=== PATIENT | female | born 1940 | race Caucasian/White ===

== ENCOUNTER 2019-10-03 14:43 | Inpatient (IN) ==
[2019-10-03] MEDS ORDERED: FUROSEMIDE 40 MG/4 ML VIAL IV STA (15:44)
[2019-10-03 15:54] LABS: Basophils # (auto) 0.01 K/uL (0-0.2); Basophils % (auto) 0.2 %; Eosinophils # (auto) 0.07 K/uL (0-0.5); Eosinophils % (auto) 1.1 %; Hematocrit (blood only) 42.7 % (37-47); Hemoglobin 13.5 g/dL (12.0-16.0); Immature Granulocytes # (auto) 0.02 K/uL (0.00-0.02); Immature Granulocytes % (auto) 0.3 %; Lymphocytes # (auto) 1.36 K/uL (1.2-3.4); Lymphocytes % (auto) 21.9 %; Mean Corpuscular Hemoglobin 27.3 pg (25-34); Mean Corpuscular Hgb Conc 31.6 g/dL (32-36); Mean Corpuscular Volume 86.4 fL (80-100); Mean Platelet Volume 10.1 fL (7.4-10.4); Monocytes # (auto) 0.48 K/uL (0.11-0.59); Monocytes % (auto) 7.7 %; Neutrophils # (auto) 4.28 K/uL (1.4-6.5); Neutrophils % (auto) 68.8 %; Platelet Count 217 K/uL (130-400); RDW Standard Deviation 53.5 fL (36.4-46.3); Red Blood Count 4.94 M/uL (4.2-5.4); White Blood Count 6.22 K/uL (4.8-10.8)
[2019-10-03 16:04] LABS: BUN Creatinine Ratio 33.2 (10-20); Calcium 9.2 mg/dl (8.5-10.1); Creatinine Clr Calc Pharmacy 50.1 ml/min; Est GFR (African American) 55.1; Est GFR (Non-African American) 47.5; Magnesium 1.9 mg/dl (1.8-2.4)
[2019-10-03 16:05] LABS: INR 1.1 (0.9-1.1); Partial Thromboplastin Ratio 0.9; Partial Thromboplastin Time 23.8 Seconds (21.0-31.0); Prothrombin Time 11.9 Seconds (9.0-12.0)
[2019-10-03 16:06] LABS: Albumin Globulin Ratio 0.6 (0.9-2); Bilirubin,Total 0.6 mg/dl (0.2-1); Globulin 5.4 gm/dl (2.5-4.0); Total Protein 8.4 gm/dl (6.4-8.2)
[2019-10-03 16:13] LABS: Phosphorus 4.5 mg/dl (2.5-4.9)
--- NOTE | 2019-10-03 16:17 | Emergency Department Note ---
Impression & Plan Volume overload, CHF (congestive heart failure), History of aortic valve replacement with bioprosthetic valve, History of coronary artery bypass graft x 2 ED Provider Note NAME: CASPER MEDELLIN AGE: 79 SEX: F ARRIVES VIA: Walk-In INFORMANT: [Patient][, ] ED PROVIDER(S): Austin Martin MD CHIEF COMPLAINT: Shortness of breath, Edema PLAN: Disposition: Admit MEDICAL DECISION MAKING: The patient is a pleasant 79 y/o gentleman with a pmhx of CAD status post CABG, bioprosthetic aortic valve replacement, carotid artery stenosis after history of endarterectomy, NIDDM 2, hypertension, hyperlipidemia who presents to the emergency department after being seen in the [facility] cardiology clinic referred to the ED for evaluation/admission for increasing volume overload after being initiated on Lasix last month including ED visit with treatment with IV Lasix. [facility] echo today demonstrates severe diastolic dysfunction with new interval findings of worsening obstruction of bioprosthetic aortic valve as well as evidence of severe pulmonary hypertension. Patient and her daughter who is an RN deny fevers, chills, n/v/d, urinary sx. No concerns for exposure to COVID19. On arrival the patient is ill-appearing in NAD, AF, VSS, 89%RA. On exam patient appears fluid overloaded with 3+ BLE edema with erythema but no warmth or tenderness, Moderate JVD, Scattered rales and diminished at bases. EKG without over acute ischemia, similar to prior. CXR with improved aeration from prior interpreted as possible PNA however given patient's overload on exam without fevers or leukocytosis, PNA thought to be less likely. WBC, H/H, platelets wnl. Chemistry without acidosis. AST 44 and AP 364. Otherwise, LFTs and electrolytes unremarkable. BNP 19K decreases from 23K last month. However patients weight is 15Kg greater than last month. Treatment initiated with 40meq IV Lasix. Resident, Dr. Ha, discussed the case with Solo Farias, [facility] PAC, with Dr. Solorzano, [facility] hospitalist who will evaluate the patient for admission. This patient was managed with the assistance of resident, Dr. Ha. I discussed the case with the resident, examined the patient, and confirm the findings and plan as documented in this note. Triage Nursing notes reviewed and agree them. [Additional history obtained from] [facility] records [Prior medical records reviewed] [] Vital Signs: reviewed and remarkable for hypertension. Differential diagnosis: Reactive airway disease, pneumonia, pneumothorax, COPD, CHF, infections, cardiac ischemia, pulmonary embolism, musculoskeletal, gastrointestinal, as well as other pathologies. ER treatment provided: See Below. Diagnostics interpreted by me: ECG: Sinus bradycardia, 59 bpm, LAD, no ectopy, No overt ST elevation or dep ression, QTC 459, QRS 104. Similar to 09/07/2019. Cardiac Monitoring: An order for continuous cardiac monitoring was placed and demonstrated Sinus bradycardia, 59bpm, no ectopy. Laboratory studies: [See below] [] Imaging studies: XR chest 1V portable CLINICAL HISTORY: Dyspnea COMPARISON STUDY: Chest CT February 08, 2018. Chest radiograph September 07, 2019. FINDINGS: Median sternotomy wires are noted. Extensive mitral annular calcification is noted. Cardiomegaly is present. There is no evidence for pulmonary edema. No pneumothorax is noted. A right pleural effusion has decreased in size since prior exam. Right lower lung aeration has improved since exam of September 07, 2019 however there is persistent right lower lung opacity, including a 3.5 cm nodular opacity. IMPRESSION: 1. Improved right lower lung aeration however persistent right basilar opacity, including a 3.5 cm nodular opacity. Pneumonia is favored. However, radiographic follow-up to exclude the possibility of an underlying mass is recommended. 2. Decrease in size of a small right pleural effusion. 3. Cardiomegaly without evidence for pulmonary edema. Consultation(s): Case was discussed with Aga Farias, [facility] PAC, with Dr. Solorzano, [facility] hospitalist who will evaluate the patient for admission. HPI: The patient is a pleasant 79 y/o gentleman with a pmhx of CAD status post CABG, bioprosthetic aortic valve replacement, carotid artery stenosis after history of endarterectomy, NIDDM 2, hypertension, hyperlipidemia who presents to the emergency department after being seen in the [facility] cardiology clinic referred to the ED for evaluation/admission for increasing volume overload after being initiated on Lasix last month including ED visit with treatment with IV Lasix per HPI. [facility] echo today demonstrates severe diastolic dysfunction with new interval findings of worsening obstruction of bioprosthetic aortic valve as well as evidence of severe pulmonary hypertension. Patient and her daughter who is an RN deny fevers, chills, n/v/d, urinary sx. No concerns for exposure to COVID19. ROS: See above HPI for pertinent positives & negatives. A total of [10] systems reviewed and were otherwise negative. PAST MEDICAL HISTORY:[See Below] PAST SURGICAL HISTORY:[See Below] FAMILY HISTORY:[See Below] SOCIAL HISTORY:[See Below] HOME MEDICATIONS:[See Below] ALLERGIES:[See Below] VITALS:[See Below] PHYSICAL EXAMINATION: GENERAL: Awake, alert, ill-appearing, in no distress HENT: Normocephalic, atraumatic. Oropharynx with dry mucous membranes and otherwise unremarkable. EYES: Normal conjunctiva. Sclera non-icteric. NECK: Supple. No nuchal rigidity. FROM. Moderate JVD. RESPIRATORY: Scattered rales, diminished at bases. CARDIAC: Regular rate, normal rhythm. Extremities warm and well perfused. Pulses equal. ABDOMEN: Soft, non-distended. No tenderness to palpation. No rebound or guarding. No masses. RECTAL: Deferred. MUSCULOSKELETAL: Chest examination reveals no tenderness. The back is symmetrical on inspection without obvious abnormality. There is no CVA tenderness to palpation. No joint edema. LOWER EXTREMITIES: Calves are equal size bilaterally and non-tender. 3+ edema. Mild erythema without warmth or tenderness. NEURO: Normal sensorium. No sensory or motor deficits noted. SKIN: No rash or jaundice noted. Austin Martin MD Past Med/Surg History Medical History Aneurysm Aortic stenosis (Chronic) Bilateral carotid artery stenosis (Chronic) Carotid artery disease Chronic back pain Diabetes mellitus with peripheral angiopathy (Chronic) Diabetes mellitus, type 2 GERD (gastroesophageal reflux disease) Glaucoma Glaucoma (Chronic) HLD (hyperlipidemia) (Chronic) HTN (hypertension) (Chronic) Hyperchloremia Hypertension Nausea and vomiting after administration of anesthetic agent Non-insulin dependent type 2 diabetes mellitus Osteoarthritis PAD (peripheral artery disease) (Chronic) T2DM (type 2 diabetes mellitus) (Chronic) Surgical History H/O aortic valve replacement History of carotid endarterectomy (Chronic) History of carpal tunnel release (Chronic) History of cataract extraction (Chronic) History of cataract surgery History of cholecystectomy History of cholecystectomy (Chronic) History of coronary artery bypass graft History of coronary artery bypass graft x 2 (Chronic) 01/24/[address] [place] [facility] [place] of prosthetic aortic valve (Chronic) 01/24/[address] 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 Beliefs That Will Affect Care: None marital status: Single Current Living Situation: Alone Other Information That Helps Us Care for You: No Feels Safe at Home: Yes Safety Concerns: Feels Safe At This Time Smoking Status: Former smoker Tobacco Type: cigarettes ; Cigarettes Per Day: 4 ; Hx Alcohol Use: No Hx Substance Use: No Allergies Allergies Allergy/AdvReac Type Severity Reaction Status Date / Time oxycodone [From Percocet] AdvReac Vomiting Verified 10/03/19 16:23 Home Meds Home Medications Medication Instructions Recorded Confirmed aspirin 81 mg PO QPM 02/06/18 10/03/19 atorvastatin [Lipitor] 40 mg PO DAILY 02/06/18 10/03/19 latanoprost [Xalatan] 1 drp OPR DAILY 02/06/18 10/03/19 lisinopril [Zestril] 10 mg PO DAILY 02/06/18 10/03/19 metoprolol tartrate [Lopressor] 50 mg PO BID 02/06/18 10/03/19 multivitamin 1 tab PO DAILY 02/06/18 10/03/19 omega 9-lrf-flu-fish oil [Fish Oil] 1 tab PO DAILY 02/06/18 10/03/19 albuterol sulfate 1 - 2 puff INHALATION UD 09/07/19 10/03/19 furosemide 40 mg PO BID 09/07/19 10/03/19 insulin aspart U-100 [Novolog 0 unit SUBCUT UD 09/07/19 10/03/19 Flexpen U-100 Insulin] insulin degludec [Tresiba 25 unit SUBCUT QAM 09/07/19 10/03/19 FlexTouch U-100] Results & Data (ED) Vital Signs Vital Signs - 24 hr 10/03/19 15:05 10/03/19 15:12 10/03/19 15:24 Temperature 36.7 C Temperature Source Oral Pulse Rate 60 59 L 59 L Pulse Rate [Apical] 59 L Pulse Rate from SpO2 Sensor 58 L 58 L Pulse Rhythm Pulse Rhythm [Apical] Respiratory Rate 23 32 H 21 Respiratory Effort / Characteristics Spontaneous Labored Short of Breath SOB on Exertion Non-Labored Spontaneous Respiratory Depth Normal Normal Respiratory Pattern Tachypnea Agonal Blood Pressure 155/71 H 155/71 H Blood Pressure [Left Arm] 155/71 H Blood Pressure Mean 104 99 Blood Pressure Mean [Left Arm] 99 Blood Pressure Position [Left Arm] Sitting Pulse Oximetry 93 94 89 L Oxygen Delivery Method Room Air Room Air Room Air Oxygen Flow Rate Sepsis Recent Fever Within 48 Hours No Sepsis Action Taken by Nursing No Action Required 10/03/19 15:30 10/03/19 15:32 10/03/19 15:45 Temperature Temperature Source Pulse Rate 55 L 59 L 59 L Pulse Rate [Apical] Pulse Rate from SpO2 Sensor 61 59 L 62 Pulse Rhythm Regular Pulse Rhythm [Apical] Respiratory Rate 18 22 20 Respiratory Effort / Characteristics Respiratory Depth Respiratory Pattern Blood Pressure 171/74 H Blood Pressure [Left Arm] Blood Pressure Mean 109 Blood Pressure Mean [Left Arm] Blood Pressure Position [Left Arm] Pulse Oximetry 96 95 94 Oxygen Delivery Method Nasal Cannula Nasal Cannula Nasal Cannula Oxygen Flow Rate 2 2 2 Sepsis Recent Fever Within 48 Hours Sepsis Action Taken by Nursing 10/03/19 16:00 10/03/19 16:01 10/03/19 16:02 Temperature Temperature Source Pulse Rate 59 L 58 L 64 Pulse Rate [Apical] Pulse Rate from SpO2 Sensor Pulse Rhythm Pulse Rhythm [Apical] Respiratory Rate 21 22 21 Respiratory Effort / Characteristics Respiratory Depth Respiratory Pattern Blood Pressure 144/110 H 145/77 H Blood Pressure [Left Arm] Blood Pressure Mean 119 99 Blood Pressure Mean [Left Arm] Blood Pressure Position [Left Arm] Pulse Oximetry 95 Oxygen Delivery Method Nasal Cannula Oxygen Flow Rate 2 Sepsis Recent Fever Within 48 Hours Sepsis Action Taken by Nursing 10/03/19 16:15 10/03/19 16:30 10/03/19 16:45 Temperature Temperature Source Pulse Rate 58 L 58 L 57 L Pulse Rate [Apical] Pulse Rate from SpO2 Sensor Pulse Rhythm Pulse Rhythm [Apical] Respiratory Rate 21 20 20 Respiratory Effort / Characteristics Respiratory Depth Respiratory Pattern Blood Pressure 144/70 H Blood Pressure [Left Arm] Blood Pressure Mean 94 Blood Pressure Mean [Left Arm] Blood Pressure Position [Left Arm] Pulse Oximetry 93 Oxygen Delivery Method Nasal Cannula Oxygen Flow Rate 2 Sepsis Recent Fever Within 48 Hours Sepsis Action Taken by Nursing 10/03/19 17:00 10/03/19 17:01 10/03/19 17:15 Temperature Temperature Source Pulse Rate 56 L 54 L Pulse Rate [Apical] 56 L Pulse Rate from SpO2 Sensor 54 L Pulse Rhythm Pulse Rhythm [Apical] Regular Respiratory Rate 24 22 18 Respiratory Effort / Characteristics Spontaneous Respiratory Depth Respiratory Pattern Regular Blood Pressure 148/72 H Blood Pressure [Left Arm] 148/72 H Blood Pressure Mean 110 Blood Pressure Mean [Left Arm] 97 Blood Pressure Position [Left Arm] Pulse Oximetry 95 93 83 L Oxygen Delivery Method Nasal Cannula Nasal Cannula Oxygen Flow Rate 3 2 Sepsis Recent Fever Within 48 Hours Sepsis Action Taken by Nursing Laboratory Data Attestation: I reviewed the patient's lab results. Result diagrams: 10/04/19 06:24 10/04/19 06:24 Lab Results 10/03/19 10/03/19 10/03/19 Range/Units 15:21 15:21 15:21 WBC 6.22 (4.8-10.8) K/uL RBC 4.94 (4.2-5.4) M/uL Hgb 13.5 (12.0-16.0) g/dL Hct 42.7 (37-47) % MCV 86.4 (80-100) fL MCH 27.3 (25-34) pg MCHC 31.6 L (32-36) g/dL RDW Std Deviation 53.5 H (36.4-46.3) fL RDW Coeff of Erin 17.0 H (11.5-14.5) % Plt Count 217 (130-400) K/uL MPV 10.1 (7.4-10.4) fL Immature Gran % (Auto) 0.3 % Neut % (Auto) 68.8 % Lymph % (Auto) 21.9 % [place] % (Auto) 7.7 % Eos % (Auto) 1.1 % Baso % (Auto) 0.2 % Immature Gran # (Auto) 0.02 (0.00-0.02) K/uL Neut # (Auto) 4.28 (1.4-6.5) K/uL Lymph # (Auto) 1.36 (1.2-3.4) K/uL [place] # (Auto) 0.48 (0.11-0.59) K/uL Eos # (Auto) 0.07 (0-0.5) K/uL Baso # (Auto) 0.01 (0-0.2) K/uL PT 11.9 (9.0-12.0) Seconds INR 1.1 (0.9-1.1) APTT 23.8 (21.0-31.0) Seconds PTT Ratio 0.9 Sodium 139 (136-145) mmol/L Potassium 4.0 (3.5-5.1) mmol/L Chloride 101 (98-107) mmol/L Carbon Dioxide 33 H (21-32) mmol/L Anion Gap 5.0 (3-11) BUN 37 H (7-18) mg/dl Creatinine 1.11 (0.6-1.2) mg/dl Est Cr Clr Drug Dosing 50.1 ml/min Est GFR ( Amer) 55.1 Est GFR (Non-Af Amer) 47.5 BUN/Creatinine Ratio 33.2 H (10-20) Glucose 192 H (70-99) mg/dl Calcium 9.2 (8.5-10.1) mg/dl Phosphorus 4.5 (2.5-4.9) mg/dl Magnesium 1.9 (1.8-2.4) mg/dl Total Bilirubin 0.6 (0.2-1) mg/dl AST 44 H (15-37) U/L ALT 49 (12-78) U/L Alkaline Phosphatase 364 H (45-117) U/L NT-Pro-B Natriuret Pep 46747 H (0-1800) pg/ml Total Protein 8.4 H (6.4-8.2) gm/dl Albumin 3.0 L (3.4-5.0) gm/dl Globulin 5.4 H (2.5-4.0) gm/dl Albumin/Globulin Ratio 0.6 L (0.9-2) Administered Medications Aspirin (Ecotrin Ectab) 81 mg PO QPM STACEY Stop: 11/02/19 20:59 Last Admin: 10/03/19 20:06 Dose: 81 mg Documented by: [id number] Atorvastatin Calcium (Lipitor) 40 mg PO DAILY STACEY Stop: 11/03/19 08:59 Last Admin: 10/04/19 08:35 Dose: 40 mg Documented by: [id number] Enoxaparin Sodium (Lovenox) 40 mg SQ Q24H STACEY Stop: 11/02/19 19:59 Last Admin: 10/03/19 20:04 Dose: 40 mg Documented by: [id number] Fish Oil ([place]-3 (Purified Fish Oil)) 1 gm PO DAILY STACEY Stop: 11/03/19 08:59 Last Admin: 10/04/19 08:33 Dose: 1 gm Documented by: [id number] Ceftriaxone Sodium 2,000 mg/ (Dextrose) 70 mls @ 100 mls/hr IV Q24H [facility]; Protocol Stop: 10/10/19 19:59 Last Infusion: 10/03/19 22:10 Dose: 0 mls/hr Documented by: [id number] Admin: 10/03/19 21:28 Dose: 100 mls/hr Documented by: [id number] Insulin Aspart (Novolog Flexpen) 0 units SC ACHS STACEY Stop: 11/02/19 20:59 Last Admin: 10/04/19 11:57 Dose: Not Given Documented by: [id number] Cosigned by: [id number] Admin: 10/04/19 09:50 Dose: Not Given Documented by: [id number] Cosigned by: [id number] Admin: 10/03/19 21:01 Dose: Not Given Documented by: [id number] Cosigned by: [id number] Insulin Glargine (Lantus Solostar Pen) 0 - 10 units SC BID [facility] Stop: 11/02/19 20:59 Last Admin: 10/04/19 09:50 Dose: Not Given Documented by: [id number] Admin: 10/03/19 21:01 Dose: Not Given Documented by: [id number] Latanoprost (Xalatan Oph) 1 drops OPR DAILY STACEY Stop: 11/03/19 08:59 Last Admin: 10/04/19 08:35 Dose: 1 drops Documented by: [id number] Lisinopril (Zestril) 10 mg PO DAILY [facility] Stop: 11/03/19 08:59 Last Admin: 10/04/19 08:35 Dose: 10 mg Documented by: [id number] Metoprolol Tartrate (Lopressor) 50 mg PO BID [facility] Stop: 11/02/19 20:59 Last Admin: 10/04/19 08:34 Dose: 50 mg Documented by: [id number] Admin: 10/03/19 20:00 Dose: 50 mg Documented by: [id number] Multivitamins (Multivitamin Tab) 1 tab PO DAILY STACEY Stop: 11/03/19 08:59 Last Admin: 10/04/19 08:34 Dose: 1 tab Documented by: [id number] Discontinued Medications Furosemide (Lasix) 40 mg IV NOW STA Stop: 10/03/19 15:45 Last Admin: 10/03/19 16:56 Dose: 40 mg Documented by: [id number] Furosemide 20 mg/ Syringe 2 mls @ 4 mls/min IV ONE ONE Stop: 10/03/19 21:01 Last Admin: 10/03/19 20:06 Dose: 4 mls/min Documented by: [id number] Furosemide 40 mg/ Syringe 4 mls @ 4 mls/min IV [id number] STACEY Stop: 11/03/19 08:59 Last Admin: 10/04/19 08:41 Dose: 4 mls/min Documented by: [id number] Blood Pressure Blood Pressure Findings: Elevated blood pressure Blood Pressure Disposition: further management by hospitalist Discharge Plan Visit Data *Final* Discharge Date/Time: 10/03/19 18:43 Chief Complaint: Shortness of Breath/Dyspnea Stated Complaint: SOB, FEVER ED Provider: Austin Martin ED Midlevel Provider: Preston Ha Discharge Problem: Volume overload, CHF (congestive heart failure), History of aortic valve replacement with bioprosthetic valve, History of coronary artery bypass graft x 2 Patient Disposition: Admitted As Inpatient Discharge Instructions Interventions: ED Discharge Assessment Last Done: 10/03/19 18:43 Discharge Problem: Volume overload Qualifiers: Hypervolemia type: unspecified Qualified Code(s): E87.70 - Fluid overload, unspecified CHF (congestive heart failure) Qualifiers: Heart failure type: unspecified Heart failure chronicity: unspecified Qualified Code(s): I50.9 - Heart failure, unspecified
--- NOTE | 2019-10-03 16:44 | XRay Report ---
XR chest 1V portable CLINICAL HISTORY: Dyspnea COMPARISON STUDY: Chest CT February 08, 2018. Chest radiograph September 07, 2019. FINDINGS: Median sternotomy wires are noted. Extensive mitral annular calcification is noted. Cardiom egaly is present. There is no evidence for pulmonary edema. No pneumothorax is noted. A right pleural effusion has decreased in size since prior exam. Right lower lung aeration has improved since exam o f September 07, 2019 however there is persistent right lower lung opacity, including a 3.5 cm nodular opa city. IMPRESSION: 1. Improved right lower lung aeration however persistent right basilar opacity, including a 3.5 cm no dular opacity. Pneumonia is favored. However, radiographic follow-up to exclude the possibility of an underlying mass is recommended. 2. Decrease in size of a small right pleural effusion. 3. Cardiomegaly without evidence for pulmonary edema. ACT 112: Negative or not required by law. Electronically signed by: Shahid Walker M.D. 10/03/2019 4:43 PM
--- NOTE | 2019-10-03 16:52 | Emergency Department Note ---
ED Visit Note I contributed to the care of this patient under the supervision of . See his note for full documentation. . Resident Activity Tracking Resident Involvement: Resident Care Provided Care Provided: Adult ED
--- NOTE | 2019-10-03 17:41 | History & Physical Report ---
Date of Service October 03, 2019 Assessment & Plan (1) Fluid overload: Pt is 79 y/o F with PMH HTN, CAD s/p CABG x2, severe aortic stenosis status post aortic valve replacement 2011, DM II status post bilateral carotid endarterectomy with subsequent right-sided restenosis, HTN, PAD, tobacco use presented to ER with complaints of increased lower extremity edema, progressive shortness of breath, weight gain. Had some adjustment oral diuretics without improvement. Patient was seen at cardiology office today and had echo in office with EF: 55- 59%, grade 3 diastolic dysfunction, bioprosthetic aortic valve opening severely reduced with elevated bioprosthetic aortic valve systolic gradient suggesting severe obstruction, moderate tricuspid regurgitation, pulmonary artery systolic pressure 66 mmHg, dilated IVC with normal inspiratory variation suggesting right atrial pressure of 8 mm Hg. In ER pt afebrile, P: 59, R: 32 down 22, BP: 155/71, 94% on RA down to 89% on RA up to 94% on 2L NC No leukocytosis, BNP: 19,000 CXR: 1. Improved right lower lung aeration however persistent right basilar opacity, including a 3.5 cm nodular opacity. Pneumonia is favored. However, radiographic follow-up to exclude the possibility of an underlying mass is recommended. 2. Decrease in size of a small right pleural effusion. 3. Cardiomegaly without evidence for pulmonary edema. Acute CHF secondary to valvular heart disease -Clinically patient appears volume overloaded -In ER given Lasix 40 mg IV -Supplemental oxygen as needed -Monitor I's and O's, daily weights, low-sodium diet -Will give additional Lasix 20 mg IV tonight followed by Lasix 40 mg IV twice daily starting tomorrow -CBC, BMP in a.m. -Cardiology consult (2) Cellulitis: BLE cellulitis -Rocephin -Wound nurse consult for bulla (3) CAD (coronary artery disease): S/p CABG x2 Denies chest pain -Continue aspirin, atorvastatin, metoprolol (4) Aortic stenosis: Status post aortic valve replacement in 2011 -Echo findings and treatment as above -Cardiology consult (5) T2DM (type 2 diabetes mellitus): A1c: 13.9 on 05/03/2019 -Hold Tresiba -NovoLog and Lantus sliding scale per protocol -A1c in a.m. (6) Carotid artery disease: S/p bilateral carotid endarterectomy with restenosis right side (7) HTN (hypertension): -Continue lisinopril (8) Tobacco use: -Smoking cessation encouraged -Denies nicotine patch DVT Prophylaxis -Lovenox SQ Full Code as per discussion with pt Follows with Dr Mendez for routine care Pt was seen and care coordinated with Dr Solorzano. See addendum History of Present Illness Chief Complaint: Extremity edema, weight gain Primary Care Provider: Jacquelyn Mendez MD Pt is 79 y/o F with PMH HTN, CAD s/p CABG x2, severe aortic stenosis status post aortic valve replacement 2011, DM II status post bilateral carotid endarterectomy with subsequent right-sided restenosis, HTN, PAD, tobacco use presented to ER with complaints of increased lower extremity edema, progressive shortness of breath, weight gain. History obtained with assistance from gema angeles's daughter as patient is poor historian. Reports patient has had progressive shortness of breath and bilateral lower extremity edema and weight gain over the past several months. Reports patient has gained approximately 45 pounds since 05/2019. It is noted she gained 15 pounds in the last 2 weeks. Also reports cough productive clear sputum off and on. Reports patient was started on Lasix 20 mg daily by PCP had continued lower extremity edema and shortness of breath and was seen at [facility] ER in August a.m. received 1 dose IV Lasix with reported good diuresis over the next 24 hours however no improvement of symptoms. Patient's Lasix was increased to 40 mg daily and for the past 5 days has been increased to twice daily. Past 1 to 2 weeks with increased lower extremity edema. Patient's daughter reports that patient never complains this has not been complaining of shortness of breath however she has noted patient with shortness of breath reports today is the worst that she seen her mother. When asked patient just says feels poorly and denies feeling short of breath, which daughter confirms she has been staying at home, however daughter reports has noticed patient with shortness of breath. Pt sleeps in recliner. Denies chest pain. Reports had noticed a blister to left lower extremity several days ago which became larger in size and self broke and drained. Also notes some other small blistered areas to bilateral lower extremities. Patient's daughter has been cleaning and applying dressings to area. Pt ambulates with walker at home however daughter reports noticed pt with increased weakness past couple of days. Denies falls. Denies fever/chills, diaphoresis, N/V/D/C, KESSLER, dizziness, syncope, vision changes, neck pain, CP, SOB, palpitations, sore throat, choking, otalgia, rhinorrhea, abdominal pain, paresthesias, other rashes, urinary symptoms. Patient was seen at cardiology office today and had echo in office with EF: 55- 59%, grade 3 diastolic dysfunction, bioprosthetic aortic valve opening severely reduced with elevated bioprosthetic aortic valve systolic gradient suggesting severe obstruction, moderate tricuspid regurgitation, pulmonary artery systolic pressure 66 mmHg, dilated IVC with normal inspiratory variation suggesting right atrial pressure of 8 mm Hg. this was compared to her last echo from 2019 which shows that bioprosthetic aortic valve systolic gradients have increased. Allergies Allergy/AdvReac Type Severity Reaction Status Date / Time oxycodone [From Percocet] AdvReac Vomiting Verified 10/03/19 16:23 Home Medications Home Medications Medication Instructions Recorded Confirmed Type aspirin 81 mg PO QPM 02/06/18 10/03/19 History atorvastatin [Lipitor] 40 mg PO DAILY 02/06/18 10/03/19 History latanoprost [Xalatan] 1 drp OPR DAILY 02/06/18 10/03/19 History lisinopril [Zestril] 10 mg PO DAILY 02/06/18 10/03/19 History metoprolol tartrate [Lopressor] 50 mg PO BID 02/06/18 10/03/19 History multivitamin 1 tab PO DAILY 02/06/18 10/03/19 History omega 2-urc-eil-fish oil [Fish Oil] 1 tab PO DAILY 02/06/18 10/03/19 History albuterol sulfate 1 - 2 puff INHALATION UD 09/07/19 10/03/19 History furosemide 40 mg PO BID 09/07/19 10/03/19 History insulin aspart U-100 [Novolog 0 unit SUBCUT UD 09/07/19 10/03/19 History Flexpen U-100 Insulin] insulin degludec [Tresiba 25 unit SUBCUT QAM 09/07/19 10/03/19 History FlexTouch U-100] Past Med/Surg History Medical History Aneurysm Aortic stenosis (Chronic) Bilateral carotid artery stenosis (Chronic) Carotid artery disease Chronic back pain Diabetes mellitus with peripheral angiopathy (Chronic) Diabetes mellitus, type 2 GERD (gastroesophageal reflux disease) Glaucoma Glaucoma (Chronic) HLD (hyperlipidemia) (Chronic) HTN (hypertension) (Chronic) Hyperchloremia Hypertension Nausea and vomiting after administration of anesthetic agent Non-insulin dependent type 2 diabetes mellitus Osteoarthritis PAD (peripheral artery disease) (Chronic) T2DM (type 2 diabetes mellitus) (Chronic) Surgical History H/O aortic valve replacement History of carotid endarterectomy (Chronic) History of carpal tunnel release (Chronic) History of cataract extraction (Chronic) History of cataract surgery History of cholecystectomy History of cholecystectomy (Chronic) History of coronary artery bypass graft History of coronary artery bypass graft x 2 (Chronic) 01/24/[address] Johnathan Caceres, [facility] History of prosthetic aortic valve (Chronic) 01/24/[address] 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 Beliefs That Will Affect Care: None marital status: Single Current Living Situation: Family Feels Safe at Home: Yes Smoking Status: Current every day smoker Tobacco Type: cigarettes ; Cigarettes Per Day: 4 ; Hx Alcohol Use: No Hx Substance Use: No Review of Systems Review of Systems: All systems reviewed & are unremarkable except as noted in HPI & below Physical Exam Physical Exam: General: mild acute distress, obese Head: normocephalic, atraumatic Eyes: PERRL, EOM's intact, conjunctiva non-injected, anicteric ENT: normal inspection external ears, nose, mucous membranes moist Neck: supple, trachea midline Lungs: mild no respiratory distress, on 2L oxygen via NC with sats 93%, +wheezing & rales CV: RRR, systolic murmur, +JVD, 2-3+pitting pretibial edema Abd: normal BS, soft, protuberant, non-tender Ext: as below in skin, no calf tenderness Neuro: A&O x 3, no focal deficits noted, normal affect Skin: warm, dry; BLE with erythema, LLE with ruptured bullous, RLE with small bullous intact Results & Data Results & Data ([facility]) Vital Signs (Past 12 Hours) Vital Signs Temp Pulse Pulse Resp BP BP Pulse Ox 10/03/19 17:00 56 L 20 148/72 H 95 10/03/19 16:01 58 L 22 144/110 H 10/03/19 16:00 59 L 21 10/03/19 15:45 59 L 20 94 10/03/19 15:32 59 L 22 171/74 H 95 10/03/19 15:30 63 22 97 10/03/19 15:24 59 L 21 89 L 10/03/19 15:12 36.7 C 59 L 32 H 155/71 H 94 10/03/19 15:05 60 59 L 23 155/71 H 155/71 H 93 Laboratory Results Short CBC 10/03/19 Range/Units 15:21 WBC 6.22 (4.8-10.8) K/uL Hgb 13.5 (12.0-16.0) g/dL Hct 42.7 (37-47) % Plt Count 217 (130-400) K/uL BMP 10/03/19 15:21 Sodium 139 Potassium 4.0 Chloride 101 Carbon Dioxide 33 H BUN 37 H Creatinine 1.11 Glucose 192 H Calcium 9.2 Liver Function 10/03/19 Range/Units 15:21 Total Bilirubin 0.6 (0.2-1) mg/dl AST 44 H (15-37) U/L ALT 49 (12-78) U/L Alkaline Phosphatase 364 H (45-117) U/L Albumin 3.0 L (3.4-5.0) gm/dl Diagnostic Findings CXR: IMPRESSION: 1. Improved right lower lung aeration however persistent right basilar opacity, including a 3.5 cm nodular opacity. Pneumonia is favored. However, radiographic follow-up to exclude the possibility of an underlying mass is recommended. 2. Decrease in size of a small right pleural effusion. 3. Cardiomegaly without evidence for pulmonary edema. Code Status & VTE Plan VTE Prophylaxis Plan VTE Prophylaxis will be ordered: Yes Supervising Physician Co-Signing Physician Notes I, Dr. Donald Solorzano, have seen and examined the patient with physician assistant professor surgical technology and would like to comment that on exam General: obese patient Lungs: crackles of more predominant of lung bases bilaterally, audible gurgling of fluid retention Heart: bradycardia Abdomen: soft, nontender, positive bowel sounds Extremities: edema Assessment and Plan -patient follows with [facility] cardiology clinic at [facility], recent ED fluids for volume overload, was sent from cardiology on 10/03/2019 to ED for further evaluation and diuresis. Echocardiogram reported in the cardiology clinic to be "The examination is adequate to evaluate the referral indication. The qualitative LV ejection fraction is 55-59% (normal). The LV wall thickness is severely increased (concentric). The left atrium is severely enlarged (>48 ml/m^2,). The left ventricular diastolic function is severely abnormal (grade III). The right ventricular systolic function is mildly reduced . There is an aortic valve bioprosthetic present. Bioprosthetic aortic valve leaflets appear thickened. Bioprosthetic aortic valve opening is severely reduced. Elevated bioprosthetic aortic valve systolic gradients suggesting severe obstruction. Moderate tricuspid regurgitation is present. The estimated pulmonary artery systolic pressure is 66 mm Hg. Dilated IVC with normal inspiratory variation suggesting a right atrial pressure of 8 mmHg. Compared to last available study changes are noted as follows: Bioprosthetic aortic valve systolic gradients have increased, indirect evidence of severe pulmonary arterial hypertension is present" -cardiology clinic impressions of "1. Acute on chronic decompensated diastolic HF secondary to severe valvular heart disease noted on echo today. Evidence of significant volume overload on exam, failing outpatient diuretic therapy. 2. B/L cellulitis with open wounds/blistering and erythema 3. History of AVR with previously elevated gradients, now severe bioprosthetic aortic stenosis on echo today. 4. Coronary artery disease status post CABG x2 stable 5. Ongoing tobacco abuse with no desire for cessation 6. Peripheral arterial disease and carotid vascular disease 7. DM with poorly controlled DM" -at this time will continue IV diuresis of the patient with Lasix and expect gradual improvements of the Acute Respiratory Failure with Hypoxia. will need inpatient cardiology consult and then plan to repeat echocardiogram once volume status improves -give ceftriaxone for the cellulitis of the legs -agree with other assessment and plans as documented by physician assistant professor surgical technology including daibetes control and smoking cessation My colleague will be taking over the care of the patient as hospitalist starting on 10/04/2019
[2019-10-03 18:49] LABS: Appearance Urine Cloudy (Clear); Bacteria Urine Automated 2+ (Negative); Bilirubin Urine Negative (Negative); Blood Urine Negative (Negative); Color Urine Yellow; Epithelial Cell Urine Auto >30 /lpf (0-5); Glucose Urine UA Negative (Negative); Ketones Urine Negative (Negative); Leukocyte Esterase Urine 2+ (Negative); Nitrite Urine Positive (Negative); Protein Urine 1+ (Negative); RBC Urine Automated 0-4 /hpf (0-4); Specific Gravity Urine 1.015 (1.000-1.030); Urobilinogen Urine Negative (Negative)
[2019-10-03] MEDS ORDERED: DEXTROSE 50% 50 ML SYRINGE IV PRN (19:13)
[2019-10-03] MEDS ORDERED: GLUCAGON FOR INJ 1 MG VIAL SQ PRN (19:13)
[2019-10-03] MEDS ORDERED: GLUCOSE 10 TABS/TUBE PO PRN (19:13)
[2019-10-03] MEDS ORDERED: CARBOHYDRATES FOR HYPOGLYCEMIA PO PRN (19:13)
[2019-10-03] MEDS ORDERED: GLUCOSE 40% GEL 15 GM TUBE PO PRN (19:13)
[2019-10-03] MEDS: METOPROLOL TARTRATE 50 MG TAB PO SCH (20:00)
[2019-10-03] MEDS: ENOXAPARIN INJ 40 MG/0.4 ML SYR SQ SCH (20:04)
[2019-10-03] MEDS: ASPIRIN 81 MG ECTAB PO SCH (20:06)
[2019-10-03] MEDS ORDERED: FUROSEMIDE 20 MG in SYRINGE 0 ML IV ONE (21:00)
[2019-10-03] MEDS ORDERED: FUROSEMIDE 40 MG/4 ML VIAL IV ONE (21:00)
[2019-10-03] MEDS: INSULIN GLARGINE SOLOSTAR 100 UNITS/ML 3 ML PEN SC SCH (21:01)
[2019-10-03] MEDS: INSULIN ASPART 100 UNITS/ML 3 ML PEN SC SCH (21:01)
[2019-10-03] MEDS: cefTRIAXone SODIUM 2,000 MG in DEXTROSE 5% 50 ML IV SCH (21:28)
--- NOTE | 2019-10-04 06:30 | Electrocardiogram Report ---
Test Reason : Blood Pressure : / mmHG Vent. Rate : 059 BPM Atrial Rate : 059 BPM P-R Int : 158 ms QRS Dur : 104 ms QT Int : 464 ms P-R-T Axes : 077 -47 129 degrees QTc Int : 459 ms Sinus bradycardia Possible Left atrial enlargement Left axis deviation Anterior infarct T wave abnormality, consider lateral ischemia Abnormal ECG When compared with ECG of 07-SEP-2019 12:56, No significant change was found Confirmed by Aaron Saenz ([id number]) on 10/04/2019 6:30:44 AM Referred By: ED Confirmed By:Aaron Saenz
[2019-10-04 06:39] LABS: Basophils # (auto) 0.01 K/uL (0-0.2); Basophils % (auto) 0.1 %; Eosinophils # (auto) 0.07 K/uL (0-0.5); Hematocrit (blood only) 39.8 % (37-47); Hemoglobin 12.4 g/dL (12.0-16.0); Immature Granulocytes # (auto) 0.01 K/uL (0.00-0.02); Immature Granulocytes % (auto) 0.1 %; Lymphocytes # (auto) 1.09 K/uL (1.2-3.4); Lymphocytes % (auto) 14.8 %; Mean Corpuscular Hemoglobin 26.6 pg (25-34); Mean Corpuscular Hgb Conc 31.2 g/dL (32-36); Mean Corpuscular Volume 85.4 fL (80-100); Monocytes # (auto) 0.55 K/uL (0.11-0.59); Monocytes % (auto) 7.5 %; Neutrophils # (auto) 5.63 K/uL (1.4-6.5); Neutrophils % (auto) 76.5 %; Platelet Count 205 K/uL (130-400); RDW Coefficient of Variation 17.1 % (11.5-14.5); RDW Standard Deviation 53.4 fL (36.4-46.3); Red Blood Count 4.66 M/uL (4.2-5.4); White Blood Count 7.36 K/uL (4.8-10.8)
[2019-10-04 06:48] LABS: Estimated Average Glucose 197 mg/dl; Hemoglobin A1C 8.5 % (4.5-5.6)
[2019-10-04 07:20] LABS: BUN Creatinine Ratio 45.7 (10-20); Calcium 8.9 mg/dl (8.5-10.1); Creatinine Clr Calc Pharmacy 61.7 ml/min; Est GFR (Non-African American) 61.2; Potassium 3.8 mmol/L (3.5-5.1)
[2019-10-04 07:30] LABS: Thyroid Stimulating Hormone 6.66 uIu/ml (0.300-4.500); Troponin I 0.079 ng/ml (0-0.045)
[2019-10-04 07:44] LABS: T4 Free Thyroxine 0.98 ng/dl (0.8-1.6)
[2019-10-04] MEDS: OMEGA-3 (PURIFIED FISH OIL) 1 GM CAP PO SCH (08:33)
[2019-10-04] MEDS: METOPROLOL TARTRATE 50 MG TAB PO SCH ×2 (08:34→21:16)
[2019-10-04] MEDS: MULTIVITAMIN TAB PO SCH (08:34)
[2019-10-04] MEDS: ATORVASTATIN 40 MG TAB PO SCH (08:35)
[2019-10-04] MEDS: lisinopriL 10 MG TAB PO SCH (08:35)
[2019-10-04] MEDS: LATANOPROST 0.005% OP SOLN 2.5 ML BTL OPR SCH (08:35)
[2019-10-04] MEDS ORDERED: FUROSEMIDE 40 MG/4 ML VIAL IV SCH (09:00)
[2019-10-04] MEDS ORDERED: FUROSEMIDE 40 MG in SYRINGE 0 ML IV SCH (09:00)
[2019-10-04] MEDS: INSULIN ASPART 100 UNITS/ML 3 ML PEN SC SCH ×4 (09:50→21:18)
[2019-10-04] MEDS: INSULIN GLARGINE SOLOSTAR 100 UNITS/ML 3 ML PEN SC SCH ×2 (09:50→21:17)
--- NOTE | 2019-10-04 11:38 | Hospitalist Progress Note ---
Date of Service October 04, 2019 Assessment & Plan (1) Acute diastolic (congestive) heart failure: (2) Fluid overload: 9 y/o F with PMH HTN, CAD s/p CABG x2, severe aortic stenosis status post aortic valve replacement 2011, DM II status post bilateral carotid endarterectomy with subsequent right-sided restenosis, HTN, PAD, tobacco use presented to ER with complaints of increased lower extremity edema, progressive shortness of breath, weight gain. Had some adjustment oral diuretics without i mprovement. Seen at cardiology office on 10/03/19 and had echo in office with EF: 55-59%, grade 3 diastolic dysfunction, bioprosthetic aortic valve opening severely reduced with elevated bioprosthetic aortic valve systolic gradient suggesting severe obstruction, moderate tricuspid regurgitation, pulmonary artery systolic pressure 66 mmHg, dilated IVC with normal inspiratory variation suggesting right atrial pressure of 8 mm Hg. In ER pt afebrile, P: 59, R: 32 down 22, BP: 155/71, 94% on RA down to 89% on RA up to 94% on 2L NC No leukocytosis, BNP: 19,000 CXR: 1. Improved right lower lung aeration however persistent right basilar opacity, including a 3.5 cm nodular opacity. Pneumonia is favored. However, radiographic follow-up to exclude the possibility of an underlying mass is recommended. 2. Decrease in size of a small right pleural effusion. 3. Cardiomegaly without evidence for pulmonary edema. Acute diastolic CHF secondary to valvular heart disease Acute hypoxic respiratory failure likely due to fluid overload +/-Pneumonia Continue IV diuresis Monitor electrolytes with diuresis and replete appropriately Discussed with esthetician/owner and recommendation noted Chest x-ray also did report concern for pneumonia. This morning, patient was hypothermic and hypoglycemic. There is a concern for possible sepsis considering all the possible infectious sources, patient mental status, hypothermia and hypoglycemia. Hypothermia may also be from hypoglycemia this morning which is currently resolved with correction of hypoglycemia and bearhug. Will continue ceftriaxone and doxycycline for possible pneumonia and monitor (3) Cellulitis: Patient does have features of stasis dermatitis on both feet. However, she has erythema more on the left leg. Continue ceftriaxone (4) UTI (urinary tract infection): Patient's urine culture is growing gram-negative bacilli We will follow-up final culture results with speciation and sensitivities Continue ceftriaxone for now (5) CAD (coronary artery disease): S/p CABG x2 Denies chest pain Continue aspirin, atorvastatin, metoprolol (6) Aortic stenosis: Status post aortic valve replacement in 2011 Echo findings and treatment as above (7) T2DM (type 2 diabetes mellitus): A1c: 13.9 on 05/03/2019 Hold Tresiba NovoLog and Lantus sliding scale per protocol A1c is 8.5 (8) Carotid artery disease: S/p bilateral carotid endarterectomy with restenosis right side (9) HTN (hypertension): Continue lisinopril Monitor Blood pressure (10) Tobacco use: Smoking cessation encouraged DVT Prophylaxis -Lovenox SQ Admission and Anticipated Discharge Date Admission Date: October 03, 2019 Subjective Patient is seen and examined. 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 Reports SOB especially with exertion Has leg swelling Denied any fevers,chills, nausea, vomiting Denied abd pain, diarrhea, constipation Denied dysuria, frequency, urgency, hematuria Physical Exam Constitutional: Obese, was drowsy but arousable on arcelia hugger Eyes: PERRL, conjunctivae normal, anicteric sclerae ENMT: external ear and nose normal, oropharynx normal Respiratory: + cough Auscultation: + diminished lung sounds (Lung bases) and + crackles Some expiratory rhonchi Cardiovascular: Rate/Rhythm: regular rate and regular rhythm Extremities: + edema S1 S2, systolic murmur Gastrointestinal (Abdomen): normal bowel sounds, soft, nontender, no hepatosplenomegaly Musculoskeletal: B/L MATILDA ++ Skin: Erythema in both legs, worse on left with rupture blister Neurologic: PERRL, EOMI, accommodation nl, no face palsy, no dysarthria Psychiatric: Drowsy but arousable AOx2 Results & Data Results & Data ([facility]) Vital Signs (Past 12 Hours) Vital Signs Temp Pulse Pulse Resp BP Pulse Ox 10/04/19 10:21 36.4 C L 10/04/19 09:29 36.4 C L 10/04/19 08:14 90 19 132/77 100 10/04/19 05:13 34.4 C L 10/04/19 04:45 34.7 C L 10/04/19 04:01 47 L 16 122/72 94 10/04/19 00:17 48 L 10/03/19 23:37 36.4 C L 48 L 18 91/59 L 99 Laboratory Results Short CBC 10/03/19 10/04/19 Range/Units 15:21 06:24 WBC 6.22 7.36 (4.8-10.8) K/uL Hgb 13.5 12.4 (12.0-16.0) g/dL Hct 42.7 39.8 (37-47) % Plt Count 217 205 (130-400) K/uL BMP 10/03/19 10/04/19 10/04/19 15:21 06:24 06:24 Sodium 139 Cancelled 138 Potassium 4.0 Cancelled 3.8 Chloride 101 Cancelled 103 Carbon Dioxide 33 H Cancelled 29 BUN 37 H Cancelled 41 H Creatinine 1.11 Cancelled 0.90 Glucose 192 H Cancelled 43 L* Calcium 9.2 Cancelled 8.9 Cardiac Enzymes 10/04/19 Range/Units 06:24 Troponin I 0.079 H* (0-0.045) ng/ml Liver Function 10/03/19 Range/Units 15:21 Total Bilirubin 0.6 (0.2-1) mg/dl AST 44 H (15-37) U/L ALT 49 (12-78) U/L Alkaline Phosphatase 364 H (45-117) U/L Albumin 3.0 L (3.4-5.0) gm/dl Urine 10/03/19 Range/Units 18:31 Urine Color Yellow Urine Appearance Cloudy A (Clear) Urine pH 5.0 (4.5-7.5) Ur Specific [place] 1.015 (1.000-1.030) Urine Protein 1+ H (Negative) Urine Glucose (UA) Negative (Negative)
[2019-10-04] MEDS: POTASSIUM CHLORIDE 20 MEQ TABCR PO SCH ×2 (13:20→21:15)
[2019-10-04] MEDS: FUROSEMIDE 40 MG in SYRINGE 0 ML IV SCH ×2 (13:20→21:15)
--- NOTE | 2019-10-04 14:08 | Cardiology Consultation ---
Date of Consultation October 04, 2019 Assessment & Plan (1) Acute diastolic (congestive) heart failure: (2) History of aortic valve replacement with bioprosthetic valve: (3) CAD (coronary artery disease): (4) Cellulitis: (5) History of carotid endarterectomy: (6) Bilateral carotid artery stenosis: (7) PAD (peripheral artery disease): (8) Diabetes mellitus with peripheral angiopathy: (9) UTI (urinary tract infection): (10) SIRS (systemic inflammatory response syndrome): It appears that her bioprosthetic aortic valve has significantly deteriorated and is now severely stenotic. This is likely the cause for her acute decompensation. The most prudent course of action at this point in time would be to medically optimize and significantly diurese and then discharge and be evaluated by the valve clinic as an outpatient and consideration of possible TAVR. Her daughter is in agreement with this. We will increase her Lasix to 40 mg IV every 8 hours. Electrolytes should be followed and replaced as necessary. Consideration may also be given to starting spironolactone during her hospital stay. She is also currently suffering from 2 obvious infections along with bacteremia which will be treated by her primary team. Continue to monitor on telemetry. Strict I's and O's along with daily weights on the same scale if patient is able to cooperate. Continue outpatient aspirin, atorvastatin, lisinopril and metoprolol. Hemoglobin A1c is also elevated and may benefit from diabetic teaching History of Present Illness Reason for Consultation: Acute decompensated diastolic heart failure with severe bioprosthetic aortic stenosis. Requesting Physician: Dr. Solorzano Attending Physician: Stephania Tavera MD History of Present Illness It was my pleasure to see Mrs. Herrera in consultation today October 04, 2019. She is a very pleasant yet cardiac complex 79-year-old woman who is very well-known to our cardiology practice. Her daughter, Gregoria, is a former RN in our clinic. She presented to [facility] on 10/03/2019 with complaints of worsening shortness of breath, fatigue and lower extremity edema over the last several months. She was found to be +45 pounds since her last evaluation. Her daughter, who provides majority of the history and whom I spoke to by phone today, states that she is slowly been deteriorating over the last several months. She has been compliant with her medications, however, her daughters try to get her to come in for follow-up several times and the patient has declined. Currently she is somewhat lethargic and states that her legs are still rather painful but she states that she is no longer short of breath at rest. At [facility], she underwent echocardiogram during her visit which revealed revealed severe bioprosthetic aortic stenosis along with elevated pulmonary pressures. Past Medical History: 1. Coronary artery disease status post CABG x2 with a vein graft to the OM and vein graft to the distal RCA 2011 2. Aortic stenosis status post aortic valve replacement 2011 with a #21 Trifecta valve 3. Ongoing tobacco abuse 4. Diabetes 5. Proclivity to decline medical screenings 6. Carotid stenosis status post bilateral carotid endarterectomies with 100% resultant stenosis on the right being followed by Neurology 7. Peripheral arterial disease. Allergies Allergy/AdvReac Type Severity Reaction Status Date / Time oxycodone [From Percocet] AdvReac Vomiting Verified 10/03/19 16:23 Home Medications Home Medications Medication Instructions Recorded Confirmed Type aspirin 81 mg PO QPM 02/06/18 10/03/19 History atorvastatin [Lipitor] 40 mg PO DAILY 02/06/18 10/03/19 History latanoprost [Xalatan] 1 drp OPR DAILY 02/06/18 10/03/19 History lisinopril [Zestril] 10 mg PO DAILY 02/06/18 10/03/19 History metoprolol tartrate [Lopressor] 50 mg PO BID 02/06/18 10/03/19 History multivitamin 1 tab PO DAILY 02/06/18 10/03/19 History omega [id number]-fish oil [Fish Oil] 1 tab PO DAILY 02/06/18 10/03/19 History albuterol sulfate 1 - 2 puff INHALATION UD 09/07/19 10/03/19 History furosemide 40 mg PO BID 09/07/19 10/03/19 History insulin aspart U-100 [Novolog 0 unit SUBCUT UD 09/07/19 10/03/19 History Flexpen U-100 Insulin] insulin degludec [Tresiba 25 unit SUBCUT QAM 09/07/19 10/03/19 History FlexTouch U-100] Patient History Medical History Aneurysm Aortic stenosis (Chronic) Bilateral carotid artery stenosis (Chronic) Carotid artery disease Chronic back pain Diabetes mellitus with peripheral angiopathy (Chronic) Diabetes mellitus, type 2 GERD (gastroesophageal reflux disease) Glaucoma Glaucoma (Chronic) HLD (hyperlipidemia) (Chronic) HTN (hypertension) (Chronic) Hyperchloremia Hypertension Nausea and vomiting after administration of anesthetic agent Non-insulin dependent type 2 diabetes mellitus Osteoarthritis PAD (peripheral artery disease) (Chronic) T2DM (type 2 diabetes mellitus) (Chronic) Surgical History H/O aortic valve replacement History of carotid endarterectomy (Chronic) History of carpal tunnel release (Chronic) History of cataract extraction (Chronic) History of cataract surgery History of cholecystectomy History of cholecystectomy (Chronic) History of coronary artery bypass graft History of coronary artery bypass graft x 2 (Chronic) 01/24/[address] Johnathan Caceres, [facility] History of prosthetic aortic valve (Chronic) 01/24/[address] Johnathan Caceres, [facility] History of total knee arthroplasty (Chronic) History of total knee replacement History of tubal ligation (Chronic) Family History Other Asthma Cancer Hypertension Social History Preferred Language: Slovak Communication Ability: Effective Toll Mechanic Required: No Beliefs That Will Affect Care: None marital status: Single Current Living Situation: Alone Other Information That Helps Us Care for You: No Feels Safe at Home: Yes Safety Concerns: Feels Safe At This Time Smoking Status: Former smoker Tobacco Type: cigarettes ; Cigarettes Per Day: 4 ; Hx Alcohol Use: No Hx Substance Use: No Review of Systems Review of Systems: All systems reviewed & are unremarkable except as noted in HPI & below Physical Exam Physical Exam: General: Awake, alert and oriented x 3 but somewhat confused. No acute distress. HEENT: Normocephalic, atraumatic. Pupils equal, round and reactive to light and accommodation. Extraocular muscles are intact. Anicteric sclera. Moist mucous membranes. Neck: No JVD. No bruit. Cardiovascular: Regular. Positive S-4. Normal S-1 and S-2. No S-3. 3/6 mid to late systolic ejection murmur, greatest at the right sternal border, second intercostal space with radiation to the bilateral carotids. No rubs. Pulmonary: Clear to auscultation bilaterally. No rales, rhonchi, or wheezing. Abdomen: Bowel sounds x 4, soft. No rebound, guarding or tenderness. No organomegaly. Extremities: No clubbing, cyanosis. +2 bilateral lower extremity pitting edema. +2 pedal pulses bilaterally. Very tender to light palpation Skin: Bilateral lower extremities with significant erythema and slight weepage of fluid. Results & Data ([facility]) Vital Signs (Past 12 Hours) Vital Signs Temp Pulse Resp BP Pulse Ox 10/04/19 13:23 36.8 C 10/04/19 11:59 36.7 C 56 L 18 110/56 L 98 10/04/19 10:21 36.4 C L 10/04/19 09:29 36.4 C L 10/04/19 08:14 90 19 132/77 100 10/04/19 05:13 34.4 C L 10/04/19 04:45 34.7 C L 10/04/19 04:01 47 L 16 122/72 94
[2019-10-04] MEDS: ENOXAPARIN INJ 40 MG/0.4 ML SYR SQ SCH (21:13)
[2019-10-04] MEDS: MICONAZOLE NITRATE POWDER 43 GM EXT SCH (21:14)
[2019-10-04] MEDS: DOXYCYCLINE HYCLATE 100 MG CAP PO SCH (21:15)
[2019-10-04] MEDS: ASPIRIN 81 MG ECTAB PO SCH (21:16)
[2019-10-04] MEDS: cefTRIAXone SODIUM 2,000 MG in DEXTROSE 5% 50 ML IV SCH (23:24)
[2019-10-05] MEDS: FUROSEMIDE 40 MG in SYRINGE 0 ML IV SCH ×3 (06:19→21:21)
[2019-10-05 07:43] LABS: Hematocrit (blood only) 40.7 % (37-47); Hemoglobin 12.4 g/dL (12.0-16.0); Mean Corpuscular Hemoglobin 26.2 pg (25-34); Mean Corpuscular Hgb Conc 30.5 g/dL (32-36); Mean Corpuscular Volume 85.9 fL (80-100); Mean Platelet Volume 10.2 fL (7.4-10.4); Platelet Count 243 K/uL (130-400); RDW Coefficient of Variation 17.3 % (11.5-14.5); RDW Standard Deviation 53.8 fL (36.4-46.3); Red Blood Count 4.74 M/uL (4.2-5.4)
[2019-10-05 08:15] LABS: BUN Creatinine Ratio 37.4 (10-20); Calcium 8.7 mg/dl (8.5-10.1); Creatinine Clr Calc Pharmacy 45.8 ml/min; Est GFR (African American) 49.1; Est GFR (Non-African American) 42.4; Magnesium 2.1 mg/dl (1.8-2.4); Phosphorus 4.4 mg/dl (2.5-4.9)
[2019-10-05] MEDS: INSULIN ASPART 100 UNITS/ML 3 ML PEN SC SCH ×4 (08:27→20:15)
[2019-10-05] MEDS: INSULIN GLARGINE SOLOSTAR 100 UNITS/ML 3 ML PEN SC SCH ×2 (08:28→20:15)
[2019-10-05] MEDS: MULTIVITAMIN TAB PO SCH (08:28)
[2019-10-05] MEDS: ATORVASTATIN 40 MG TAB PO SCH (08:28)
[2019-10-05] MEDS: DOXYCYCLINE HYCLATE 100 MG CAP PO SCH ×2 (08:29→20:16)
[2019-10-05] MEDS: POTASSIUM CHLORIDE 20 MEQ TABCR PO SCH (08:29)
[2019-10-05] MEDS: MICONAZOLE NITRATE POWDER 43 GM EXT SCH ×2 (08:29→20:14)
[2019-10-05] MEDS: OMEGA-3 (PURIFIED FISH OIL) 1 GM CAP PO SCH (08:29)
[2019-10-05] MEDS: LATANOPROST 0.005% OP SOLN 2.5 ML BTL OPR SCH (08:29)
[2019-10-05] MEDS: lisinopriL 10 MG TAB PO SCH (08:34)
[2019-10-05] MEDS: METOPROLOL TARTRATE 50 MG TAB PO SCH ×2 (08:34→20:16)
--- NOTE | 2019-10-05 09:50 | Cardiology Progress Note ---
Date of Service October 05, 2019 Assessment & Plan (1) Acute diastolic (congestive) heart failure: (2) History of aortic valve replacement with bioprosthetic valve: (3) CAD (coronary artery disease): (4) Cellulitis: (5) History of carotid endarterectomy: (6) Bilateral carotid artery stenosis: (7) PAD (peripheral artery disease): (8) Diabetes mellitus with peripheral angiopathy: (9) UTI (urinary tract infection): (10) SIRS (systemic inflammatory response syndrome): The patient appears to be resting comfortably. She still has some wheezing through her lung field I believe that she will need continued diuresis. She will be along term care problem. Her cellulitis will have to be treated before there will be any consideration for a Edil or other treatment of her aortic stenosis. She will require a lot of supportive care. Subjective The patient is resting comfortably. Review of Systems Review of Systems: All systems reviewed & are unremarkable except as noted in HPI & below and Unobtainable due to cognitive status Physical Exam Physical Exam: General: no acute distress and stated age Head: normocephalic, no masses, lesions, tenderness or abnormalities Eyes: conjunctiva are pink and non-injected, sclera clear Neck: supple, no adenopathy, no bruits, normal jugular venous pulse, no hepatojugular reflux Chest: normal shape and normal respiratory effort Lungs: Bilateral wheezing Cardiac Exam: - regular rate & rhythm, systolic murmur Pulses: 2(+) throughout Abdomen: abdomen soft, non-tender, no abnormal masses and no hepatosplenomegaly Musculoskeletal: no gait disturbance, no joint inflammation, no deforming arthritis Extremities: Bilateral cellulitis Neuro: grossly normal exam Results & Data Vital Signs (Past 12 Hours) Vital Signs Temp Pulse Pulse Resp BP BP Pulse Ox 10/05/19 08:39 60 144/74 H 10/05/19 07:53 36.6 C 57 L 18 93/58 L 98 10/05/19 02:55 36.4 C L 103 H 19 136/79 96 10/05/19 01:22 62 10/05/19 00:19 36.9 C 73 20 101/71 97 Laboratory Results Laboratory Results - last 24 hr 10/04/19 10/04/19 10/04/19 11:39 16:08 20:08 WBC RBC Hgb Hct MCV MCH MCHC RDW Std Deviation RDW Coeff of Erin Plt Count MPV Sodium Potassium Chloride Carbon Dioxide Anion Gap BUN Creatinine Est Cr Clr Drug Dosing Est GFR ( Amer) Est GFR (Non-Af Amer) BUN/Creatinine Ratio Glucose POC Glucose 173 H 163 H 168 H Calcium Phosphorus Magnesium 10/05/19 10/05/19 10/05/19 07:00 07:00 07:35 WBC 7.80 RBC 4.74 Hgb 12.4 Hct 40.7 MCV 85.9 MCH 26.2 MCHC 30.5 L RDW Std Deviation 53.8 H RDW Coeff of Erin 17.3 H Plt Count 243 MPV 10.2 Sodium 137 Potassium 5.0 D Chloride 101 Carbon Dioxide 29 Anion Gap 7.0 BUN 46 H Creatinine 1.22 H D Est Cr Clr Drug Dosing 45.8 Est GFR ( Amer) 49.1 Est GFR (Non-Af Amer) 42.4 BUN/Creatinine Ratio 37.4 H Glucose 63 L POC Glucose 66 L* Calcium 8.7 Phosphorus 4.4 Magnesium 2.1 10/05/19 10/05/19 07:36 07:56 WBC RBC Hgb Hct MCV MCH MCHC RDW Std Deviation RDW Coeff of Erin Plt Count MPV Sodium Potassium Chloride Carbon Dioxide Anion Gap BUN Creatinine Est Cr Clr Drug Dosing Est GFR ( Amer) Est GFR (Non-Af Amer) BUN/Creatinine Ratio Glucose POC Glucose 67 L* 95 Calcium Phosphorus Magnesium Medications Administered Current Inpatient Medications Acetaminophen (Tylenol) 650 mg PO Q4H PRN PRN Reason: Pain or Fever Stop: 11/02/19 19:12 Aspirin (Ecotrin Ectab) 81 mg PO QPM STACEY Stop: 11/02/19 20:59 Last Admin: 10/04/19 21:16 Dose: 81 mg Documented by: Atorvastatin Calcium (Lipitor) 40 mg PO DAILY [facility] Stop: 11/03/19 08:59 Last Admin: 10/05/19 08:28 Dose: 40 mg Documented by: Dextrose (Dextrose 50%) 25 - 50 ml IV UD PRN; Protocol PRN Reason: Hypoglycemia Protocol Stop: 11/02/19 19:12 Doxycycline Hyclate (Vibramycin) 100 mg PO BID STACEY; Protocol Stop: 10/11/19 20:59 Last Admin: 10/05/19 08:29 Dose: 100 mg Documented by: Enoxaparin Sodium (Lovenox) 40 mg SQ Q24H STACEY Stop: 11/02/19 19:59 Last Admin: 10/04/19 21:13 Dose: 40 mg Documented by: Fish Oil ([place]-3 (Purified Fish Oil)) 1 gm PO DAILY STACEY Stop: 11/03/19 08:59 Last Admin: 10/05/19 08:29 Dose: 1 gm Documented by: Glucagon (Glucagen) 1 mg SQ UD PRN; Protocol PRN Reason: Hypoglycemia Protocol Stop: 11/02/19 19:12 Glucose (Dex4 Glucose) 4 - 8 tabs PO UD PRN; Protocol PRN Reason: Hypoglycemia Protocol Stop: 11/02/19 19:12 Glucose (Glucose 40%) 15 - 30 gm PO UD PRN; Protocol PRN Reason: Hypoglycemia Protocol Stop: 11/02/19 19:12 Ceftriaxone Sodium 2,000 mg/ (Dextrose) 70 mls @ 100 mls/hr IV Q24H STACEY; Protocol Stop: 10/10/19 19:59 Last Infusion: 10/05/19 00:06 Dose: Infused Documented by: Furosemide 40 mg/ Syringe 4 mls @ 4 mls/min IV Q8 STACEY Stop: 11/03/19 13:59 Last Admin: 10/05/19 06:19 Dose: 4 mls/min Documented by: Insulin Aspart (Novolog Flexpen) 0 units SC ACHS STACEY Stop: 11/02/19 20:59 Last Admin: 10/05/19 08:27 Dose: Not Given Documented by: Insulin Glargine (Lantus Solostar Pen) 0 - 10 units SC BID STACEY Stop: 11/02/19 20:59 Last Admin: 10/05/19 08:28 Dose: Not Given Documented by: Latanoprost (Xalatan Oph) 1 drops OPR DAILY STACEY Stop: 11/03/19 08:59 Last Admin: 10/05/19 08:29 Dose: 1 drops Documented by: Lisinopril (Zestril) 10 mg PO DAILY STACEY Stop: 11/03/19 08:59 Last Admin: 10/05/19 08:34 Dose: 10 mg Documented by: Metoprolol Tartrate (Lopressor) 50 mg PO BID STACEY Stop: 11/02/19 20:59 Last Admin: 10/05/19 08:34 Dose: 50 mg Documented by: Miconazole Nitrate (Desenex) 1 appln EXT BID [facility] Stop: 11/03/19 20:59 Last Admin: 10/05/19 08:29 Dose: 1 appln Documented by: Miscellaneous (Carbohydrates For Hypoglycemia) 15 - 30 gm PO UD PRN PRN Reason: Hypoglycemia Protocol Stop: 11/02/19 19:12 Last Admin: 10/05/19 07:41 Dose: 15 gm Documented by: Multivitamins (Multivitamin Tab) 1 tab PO DAILY [facility] Stop: 11/03/19 08:59 Last Admin: 10/05/19 08:28 Dose: 1 tab Documented by: Potassium Chloride (Klor-Con M20) 40 meq PO BID [facility] Stop: 11/03/19 11:14 Last Admin: 10/05/19 08:29 Dose: 40 meq Documented by:
--- NOTE | 2019-10-05 10:01 | Hospitalist Progress Note ---
Date of Service October 05, 2019 Assessment & Plan (1) Acute diastolic (congestive) heart failure: (2) Fluid overload: 9 y/o F with PMH HTN, CAD s/p CABG x2, severe aortic stenosis status post aortic valve replacement 2011, DM II status post bilateral carotid endarterectomy with subsequent right-sided restenosis, HTN, PAD, tobacco use presented to ER with complaints of increased lower extremity edema, progressive shortness of breath, weight gain. Had some adjustment oral diuretics without i mprovement. Seen at cardiology office on 10/03/19 and had echo in office with EF: 55-59%, grade 3 diastolic dysfunction, bioprosthetic aortic valve opening severely reduced with elevated bioprosthetic aortic valve systolic gradient suggesting severe obstruction, moderate tricuspid regurgitation, pulmonary artery systolic pressure 66 mmHg, dilated IVC with normal inspiratory variation suggesting right atrial pressure of 8 mm Hg. In ER pt afebrile, P: 59, R: 32 down 22, BP: 155/71, 94% on RA down to 89% on RA up to 94% on 2L NC No leukocytosis, BNP: 19,000 CXR: 1. Improved right lower lung aeration however persistent right basilar opacity, including a 3.5 cm nodular opacity. Pneumonia is favored. However, radiographic follow-up to exclude the possibility of an underlying mass is recommended. 2. Decrease in size of a small right pleural effusion. 3. Cardiomegaly without evidence for pulmonary edema. Acute diastolic CHF secondary to valvular heart disease Acute hypoxic respiratory failure likely due to fluid overload +/-Pneumonia Continue IV diuresis K is 5 today. Hold po potassium for now and monitor Discussed with pulverizing and sifting operator and recommendations noted Chest x-ray also did report concern for pneumonia. This morning, patient was hypothermic and hypoglycemic. There is a concern for possible sepsis considering all the possible infectious sources, drowsy but arousable, hypothermia and hypoglycemia on 10/04/19 Hypothermia may also be from hypoglycemia this morning which is currently resolved with correction of hypoglycemia and bearhug. Follow up blood culture in lab Will continue ceftriaxone and doxycycline for possible pneumonia and monitor (3) Cellulitis: Patient does have features of stasis dermatitis on both feet. she has erythema on both feet she has left leg cellulitis too Continue ceftriaxone (4) UTI (urinary tract infection): Patient's urine culture is growing E. coli Sensitivities noted Continue ceftriaxone for now (5) CAD (coronary artery disease): S/p CABG x2 Denies chest pain Continue aspirin, atorvastatin, metoprolol (6) Aortic stenosis: Status post aortic valve replacement in 2011 Echo findings and treatment as above (7) T2DM (type 2 diabetes mellitus): A1c: 13.9 on 05/03/2019 Hold Tresiba NovoLog and Lantus sliding scale per protocol A1c is 8.5 (8) Carotid artery disease: S/p bilateral carotid endarterectomy with restenosis right side (9) HTN (hypertension): Continue lisinopril Monitor Blood pressure (10) Tobacco use: Smoking cessation encouraged DVT Prophylaxis -Lovenox SQ Called daughter and updated her Admission and Anticipated Discharge Date Admission Date: October 03, 2019 Subjective Patient seen and examined Reports weakness, malaise and leg pains When asked about cough, she does not acknowledge cough but was coughing intermittently during exam. Denied any fevers, chills, nausea, vomiting Denied any abd pain Denied chest pain or shortness of breath at rest. Per RN, patient is usually awake and alert and oriented to person and place, with episodes of confusion but condition appears to remain same since admission Physical Exam Eyes: PERRL, conjunctivae normal, anicteric sclerae ENMT: external ear and nose normal, oropharynx normal Respiratory: + cough Auscultation: + diminished lung sounds (Lung bases) and + crackles Cardiovascular: Rate/Rhythm: regular rate and regular rhythm Extremities: + edema Gastrointestinal (Abdomen): normal bowel sounds, soft, nontender, no hepatosplenomegaly Musculoskeletal: B/L MATILDA ++ Skin: Erythema in both legs Left leg covered in clean dressing. +Tendernessr Neurologic: PERRL, EOMI, accommodation nl, no face palsy, no dysarthria AOx2 Results & Data Results & Data ([facility]) Vital Signs (Past 12 Hours) Vital Signs Temp Pulse Pulse Resp BP BP Pulse Ox 10/05/19 08:39 60 144/74 H 10/05/19 07:53 36.6 C 57 L 18 93/58 L 98 10/05/19 02:55 36.4 C L 103 H 19 136/79 96 10/05/19 01:22 62 10/05/19 00:19 36.9 C 73 20 101/71 97 Laboratory Results Short CBC 10/05/19 Range/Units 07:00 WBC 7.80 (4.8-10.8) K/uL Hgb 12.4 (12.0-16.0) g/dL Hct 40.7 (37-47) % Plt Count 243 (130-400) K/uL BMP 10/05/19 07:00 Sodium 137 Potassium 5.0 D Chloride 101 Carbon Dioxide 29 BUN 46 H Creatinine 1.22 H D Glucose 63 L Calcium 8.7
[2019-10-05] MEDS: cefTRIAXone SODIUM 2,000 MG in DEXTROSE 5% 50 ML IV SCH (20:12)
[2019-10-05] MEDS: ENOXAPARIN INJ 40 MG/0.4 ML SYR SQ SCH (20:13)
[2019-10-05] MEDS: ASPIRIN 81 MG ECTAB PO SCH (20:16)
[2019-10-06] MEDS: FUROSEMIDE 40 MG in SYRINGE 0 ML IV SCH ×3 (06:16→20:37)
[2019-10-06 06:28] LABS: Hematocrit (blood only) 40.6 % (37-47); Hemoglobin 12.5 g/dL (12.0-16.0); Mean Corpuscular Hemoglobin 25.7 pg (25-34); Mean Corpuscular Hgb Conc 30.8 g/dL (32-36); Mean Corpuscular Volume 83.4 fL (80-100); Platelet Count 224 K/uL (130-400); RDW Coefficient of Variation 17.3 % (11.5-14.5); RDW Standard Deviation 52.9 fL (36.4-46.3); Red Blood Count 4.87 M/uL (4.2-5.4); White Blood Count 5.96 K/uL (4.8-10.8)
[2019-10-06 07:03] LABS: BUN Creatinine Ratio 41.5 (10-20); Calcium 9.3 mg/dl (8.5-10.1); Creatinine Clr Calc Pharmacy 46.6 ml/min; Est GFR (African American) 48.7; Magnesium 2.1 mg/dl (1.8-2.4); Potassium 4.8 mmol/L (3.5-5.1)
[2019-10-06] MEDS: MICONAZOLE NITRATE POWDER 43 GM EXT SCH ×2 (08:22→19:57)
[2019-10-06] MEDS: INSULIN GLARGINE SOLOSTAR 100 UNITS/ML 3 ML PEN SC SCH ×2 (08:24→20:33)
[2019-10-06] MEDS: OMEGA-3 (PURIFIED FISH OIL) 1 GM CAP PO SCH (08:24)
[2019-10-06] MEDS: LATANOPROST 0.005% OP SOLN 2.5 ML BTL OPR SCH (08:24)
[2019-10-06] MEDS: DOXYCYCLINE HYCLATE 100 MG CAP PO SCH ×2 (08:25→19:54)
[2019-10-06] MEDS: lisinopriL 10 MG TAB PO SCH (08:25)
[2019-10-06] MEDS: MULTIVITAMIN TAB PO SCH (08:26)
[2019-10-06] MEDS: INSULIN ASPART 100 UNITS/ML 3 ML PEN SC SCH ×4 (08:26→20:35)
[2019-10-06] MEDS: ATORVASTATIN 40 MG TAB PO SCH (08:26)
[2019-10-06] MEDS ORDERED: POTASSIUM CHLORIDE 20 MEQ TABCR PO SCH (09:00)
[2019-10-06] MEDS: ACETAMINOPHEN 325 MG TAB PO PRN (09:44)
[2019-10-06] MEDS: METOPROLOL TARTRATE 50 MG TAB PO SCH ×2 (10:15→20:12)
[2019-10-06] MEDS ORDERED: metOLazone 2.5 MG TABLET PO ONE (10:37)
--- NOTE | 2019-10-06 11:55 | Hospitalist Progress Note ---
Date of Service October 06, 2019 Assessment & Plan (1) Acute diastolic (congestive) heart failure: (2) Fluid overload: 9 y/o F with PMH HTN, CAD s/p CABG x2, severe aortic stenosis status post aortic valve replacement 2011, DM II status post bilateral carotid endarterectomy with subsequent right-sided restenosis, HTN, PAD, tobacco use presented to ER with complaints of increased lower extremity edema, progressive shortness of breath, weight gain. Had some adjustment oral diuretics without i mprovement. Seen at cardiology office on 10/03/19 and had echo in office with EF: 55-59%, grade 3 diastolic dysfunction, bioprosthetic aortic valve opening severely reduced with elevated bioprosthetic aortic valve systolic gradient suggesting severe obstruction, moderate tricuspid regurgitation, pulmonary artery systolic pressure 66 mmHg, dilated IVC with normal inspiratory variation suggesting right atrial pressure of 8 mm Hg. In ER pt afebrile, P: 59, R: 32 down 22, BP: 155/71, 94% on RA down to 89% on RA up to 94% on 2L NC No leukocytosis, BNP: 19,000 CXR: 1. Improved right lower lung aeration however persistent right basilar opacity, including a 3.5 cm nodular opacity. Pneumonia is favored. However, radiographic follow-up to exclude the possibility of an underlying mass is recommended. 2. Decrease in size of a small right pleural effusion. 3. Cardiomegaly without evidence for pulmonary edema. Acute diastolic CHF secondary to valvular heart disease Acute hypoxic respiratory failure likely due to fluid overload +/-Pneumonia Continue IV lasix q8h Not diuresed much in the past 24h Discussed with urology surgeon and recommendations noted Recommended addition of metolazone 2.5mg daily Monitor electrolytes with diuresis Chest x-ray also did report concern for pneumonia. 10/04/19 morning, patient was hypothermic and hypoglycemic. Hypothermia may also be from hypoglycemia this morning which resolved with correction of hypoglycemia and bairhugger use. Blood cultures in lab are negative and monitor (3) Cellulitis: Patient does have features of stasis dermatitis on both feet. she has erythema on both feet she has left leg cellulitis too Continue ceftriaxone (4) UTI (urinary tract infection): Patient's urine culture is growing E. coli Sensitivities noted Continue ceftriaxone for now to complete therapy (5) CAD (coronary artery disease): S/p CABG x2 Denies chest pain Continue aspirin, atorvastatin, metoprolol (6) Aortic stenosis: Status post aortic valve replacement in 2011 Echo findings and treatment as above (7) T2DM (type 2 diabetes mellitus): A1c: 13.9 on 05/03/2019 Hold Tresiba NovoLog and Lantus sliding scale per protocol A1c is 8.5 (8) Carotid artery disease: S/p bilateral carotid endarterectomy with restenosis right side (9) HTN (hypertension): Continue lisinopril Monitor Blood pressure (10) Tobacco use: Smoking cessation encouraged DVT Prophylaxis -Lovenox SQ Admission and Anticipated Discharge Date Admission Date: October 03, 2019 Subjective Patient seen and examined Complaints include left leg pain and cough Still has weakness Denied any fevers, chills, nausea, vomiting Denied any abd pain Denied chest pain or shortness of breath at rest Physical Exam Eyes: PERRL, conjunctivae normal, anicteric sclerae ENMT: external ear and nose normal, oropharynx normal Respiratory: + cough Auscultation: + diminished lung sounds (Lung bases) and + crackles Cardiovascular: Rate/Rhythm: regular rate and regular rhythm Extremities: + edema Gastrointestinal (Abdomen): normal bowel sounds, soft, nontender, no hepatosplenomegaly Musculoskeletal: B/l MATILDA ++ Skin: Erythema in both legs, ruptured blister on left leg with clean dressing. Tenderness over left leg Neurologic: PERRL, EOMI, accommodation nl, no face palsy, no dysarthria AOx2 Results & Data Results & Data ([facility]) Vital Signs (Past 12 Hours) Vital Signs Temp Pulse Pulse Resp BP BP Pulse Ox 10/06/19 11:24 36.8 C 51 L 20 130/78 92 10/06/19 08:13 36.4 C L 48 L 20 117/55 L 93 10/06/19 07:14 57 L 10/06/19 04:38 36.4 C L 18 119/78 91 10/06/19 00:57 46 L Laboratory Results Short CBC 10/06/19 Range/Units 06:00 WBC 5.96 (4.8-10.8) K/uL Hgb 12.5 (12.0-16.0) g/dL Hct 40.6 (37-47) % Plt Count 224 (130-400) K/uL BMP 10/06/19 06:00 Sodium 135 L Potassium 4.8 Chloride 99 Carbon Dioxide 28 BUN 51 H Creatinine 1.23 H Glucose 87 Calcium 9.3
--- NOTE | 2019-10-06 11:56 | Cardiology Progress Note ---
Date of Service October 06, 2019 Assessment & Plan (1) Acute diastolic (congestive) heart failure: (2) History of aortic valve replacement with bioprosthetic valve: (3) CAD (coronary artery disease): (4) Cellulitis: (5) History of carotid endarterectomy: (6) Bilateral carotid artery stenosis: (7) PAD (peripheral artery disease): (8) Diabetes mellitus with peripheral angiopathy: (9) UTI (urinary tract infection): (10) SIRS (systemic inflammatory response syndrome): The patient appears to be resting comfortably. She still has some wheezing through her lung field I believe that she will need continued diuresis. She will be along term care problem. Her cellulitis will have to be treated before there will be any consideration for a Edil or other treatment of her aortic stenosis. She will require a lot of supportive care. Subjective No new complaints today. She is resting comfortably. Review of Systems Review of Systems: All systems reviewed & are unremarkable except as noted in HPI & below Physical Exam Physical Exam: Nothing additional to add.General: no acute distress and stated age Head: normocephalic, no masses, lesions, tenderness or abnormalities Eyes: conjunctiva are pink and non-injected, sclera clear Neck: supple, no adenopathy, no bruits, normal jugular venous pulse, no hepatojugular reflux Chest: normal shape and normal respiratory effort Lungs: clear to auscultation and percussion Cardiac Exam: - regular rate & rhythm, no murmurs gallops or rubs - normal S1, normal S2 Pulses: 2(+) throughout Abdomen: abdomen soft, non-tender, no abnormal masses and no hepatosplenomegaly Musculoskeletal: no gait disturbance, no joint inflammation, no deforming arthritis Extremities: Bilateral lower extremity cellulitis Neuro: grossly normal exam Results & Data Vital Signs (Past 12 Hours) Vital Signs Temp Pulse Pulse Resp BP BP Pulse Ox 10/06/19 11:24 36.8 C 51 L 20 130/78 92 10/06/19 08:13 36.4 C L 48 L 20 117/55 L 93 10/06/19 07:14 57 L 10/06/19 04:38 36.4 C L 18 119/78 91 10/06/19 00:57 46 L Laboratory Results Laboratory Results - last 24 hr 10/05/19 10/05/19 10/06/19 16:31 20:02 06:00 WBC 5.96 RBC 4.87 Hgb 12.5 Hct 40.6 MCV 83.4 MCH 25.7 MCHC 30.8 L RDW Std Deviation 52.9 H RDW Coeff of Erin 17.3 H Plt Count 224 MPV 10.0 Sodium Potassium Chloride Carbon Dioxide Anion Gap BUN Creatinine Est Cr Clr Drug Dosing Est GFR ( Amer) Est GFR (Non-Af Amer) BUN/Creatinine Ratio Glucose POC Glucose 124 H 215 H Calcium Magnesium 10/06/19 10/06/19 10/06/19 06:00 07:24 11:32 WBC RBC Hgb Hct MCV MCH MCHC RDW Std Deviation RDW Coeff of Erin Plt Count MPV Sodium 135 L Potassium 4.8 Chloride 99 Carbon Dioxide 28 Anion Gap 8.0 BUN 51 H Creatinine 1.23 H Est Cr Clr Drug Dosing 46.6 Est GFR ( Amer) 48.7 Est GFR (Non-Af Amer) 42.0 BUN/Creatinine Ratio 41.5 H Glucose 87 POC Glucose 82 155 H Calcium 9.3 Magnesium 2.1 Medications Administered Current Inpatient Medications Acetaminophen (Tylenol) 650 mg PO Q4H PRN PRN Reason: Pain or Fever Stop: 11/02/19 19:12 Last Admin: 10/06/19 09:44 Dose: 650 mg Documented by: Aspirin (Ecotrin Ectab) 81 mg PO QPM [facility] Stop: 11/02/19 20:59 Last Admin: 10/05/19 20:16 Dose: 81 mg Documented by: Atorvastatin Calcium (Lipitor) 40 mg PO DAILY [facility] Stop: 11/03/19 08:59 Last Admin: 10/06/19 08:26 Dose: 40 mg Documented by: Dextrose (Dextrose 50%) 25 - 50 ml IV UD PRN; Protocol PRN Reason: Hypoglycemia Protocol Stop: 11/02/19 19:12 Doxycycline Hyclate (Vibramycin) 100 mg PO BID [facility]; Protocol Stop: 10/11/19 20:59 Last Admin: 10/06/19 08:25 Dose: 100 mg Documented by: Enoxaparin Sodium (Lovenox) 40 mg SQ Q24H [facility] Stop: 11/02/19 19:59 Last Admin: 10/05/19 20:13 Dose: 40 mg Documented by: Fish Oil ([place]-3 (Purified Fish Oil)) 1 gm PO DAILY [facility] Stop: 11/03/19 08:59 Last Admin: 10/06/19 08:24 Dose: 1 gm Documented by: Glucagon (Glucagen) 1 mg SQ UD PRN; Protocol PRN Reason: Hypoglycemia Protocol Stop: 11/02/19 19:12 Glucose (Dex4 Glucose) 4 - 8 tabs PO UD PRN; Protocol PRN Reason: Hypoglycemia Protocol Stop: 11/02/19 19:12 Glucose (Glucose 40%) 15 - 30 gm PO UD PRN; Protocol PRN Reason: Hypoglycemia Protocol Stop: 11/02/19 19:12 Ceftriaxone Sodium 2,000 mg/ (Dextrose) 70 mls @ 100 mls/hr IV Q24H [facility]; Protocol Stop: 10/10/19 19:59 Last Infusion: 10/05/19 21:21 Dose: Infused Documented by: Furosemide 40 mg/ Syringe 4 mls @ 4 mls/min IV Q8 [facility] Stop: 11/03/19 13:59 Last Admin: 10/06/19 06:16 Dose: 4 mls/min Documented by: Insulin Aspart (Novolog Flexpen) 0 units SC ACHS [facility] Stop: 11/02/19 20:59 Last Admin: 10/06/19 08:26 Dose: 4 units Documented by: Insulin Glargine (Lantus Solostar Pen) 0 - 10 units SC BID [facility] Stop: 11/02/19 20:59 Last Admin: 10/06/19 08:24 Dose: Not Given Documented by: Latanoprost (Xalatan Oph) 1 drops OPR DAILY [facility] Stop: 11/03/19 08:59 Last Admin: 10/06/19 08:24 Dose: 1 drops Documented by: Lisinopril (Zestril) 10 mg PO DAILY [facility] Stop: 11/03/19 08:59 Last Admin: 10/06/19 08:25 Dose: 10 mg Documented by: Metolazone (Zaroxolyn) 2.5 mg PO QAM [facility] Stop: 11/06/19 08:59 Metoprolol Tartrate (Lopressor) 50 mg PO BID [facility] Stop: 11/02/19 20:59 Last Admin: 10/06/19 10:15 Dose: Not Given Documented by: Miconazole Nitrate (Desenex) 1 appln EXT BID [facility] Stop: 11/03/19 20:59 Last Admin: 10/06/19 08:22 Dose: 1 appln Documented by: Miscellaneous (Carbohydrates For Hypoglycemia) 15 - 30 gm PO UD PRN PRN Reason: Hypoglycemia Protocol Stop: 11/02/19 19:12 Last Admin: 10/05/19 07:41 Dose: 15 gm Documented by: Multivitamins (Multivitamin Tab) 1 tab PO DAILY [facility] Stop: 11/03/19 08:59 Last Admin: 10/06/19 08:26 Dose: 1 tab Documented by: Potassium Chloride (Klor-Con M20) 40 meq PO DAILY [facility] Stop: 11/05/19 08:59
[2019-10-06] MEDS: ENOXAPARIN INJ 40 MG/0.4 ML SYR SQ SCH (19:54)
[2019-10-06] MEDS: ASPIRIN 81 MG ECTAB PO SCH (19:54)
[2019-10-06] MEDS: cefTRIAXone SODIUM 2,000 MG in DEXTROSE 5% 50 ML IV SCH (19:56)
[2019-10-07] MEDS: FUROSEMIDE 40 MG in SYRINGE 0 ML IV SCH ×3 (05:38→21:50)
[2019-10-07 07:27] LABS: Hematocrit (blood only) 39.9 % (37-47); Hemoglobin 12.5 g/dL (12.0-16.0); Mean Corpuscular Hemoglobin 26.2 pg (25-34); Mean Corpuscular Hgb Conc 31.3 g/dL (32-36); Mean Corpuscular Volume 83.5 fL (80-100); Mean Platelet Volume 10.1 fL (7.4-10.4); Platelet Count 218 K/uL (130-400); RDW Coefficient of Variation 17.4 % (11.5-14.5); RDW Standard Deviation 52.8 fL (36.4-46.3); Red Blood Count 4.78 M/uL (4.2-5.4); White Blood Count 6.07 K/uL (4.8-10.8)
[2019-10-07] MEDS: lisinopriL 10 MG TAB PO SCH (08:06)
[2019-10-07] MEDS: ATORVASTATIN 40 MG TAB PO SCH (08:06)
[2019-10-07] MEDS: METOPROLOL TARTRATE 50 MG TAB PO SCH ×3 (08:06→20:18)
[2019-10-07] MEDS: OMEGA-3 (PURIFIED FISH OIL) 1 GM CAP PO SCH (08:06)
[2019-10-07] MEDS: DOXYCYCLINE HYCLATE 100 MG CAP PO SCH ×2 (08:06→20:04)
[2019-10-07] MEDS: MULTIVITAMIN TAB PO SCH (08:06)
[2019-10-07] MEDS: LATANOPROST 0.005% OP SOLN 2.5 ML BTL OPR SCH (08:06)
[2019-10-07 08:08] LABS: BUN Creatinine Ratio 39.5 (10-20); Calcium 9.3 mg/dl (8.5-10.1); Est GFR (African American) 46.4; Magnesium 1.9 mg/dl (1.8-2.4)
[2019-10-07] MEDS: INSULIN ASPART 100 UNITS/ML 3 ML PEN SC SCH ×4 (08:26→20:30)
[2019-10-07] MEDS: MICONAZOLE NITRATE POWDER 43 GM EXT SCH ×2 (08:26→20:03)
[2019-10-07] MEDS: INSULIN GLARGINE SOLOSTAR 100 UNITS/ML 3 ML PEN SC SCH ×2 (08:27→20:30)
[2019-10-07] MEDS ORDERED: metOLazone 2.5 MG TABLET PO SCH (09:00)
--- NOTE | 2019-10-07 12:15 | Cardiology Progress Note ---
Date of Service October 07, 2019 Assessment & Plan (1) Acute diastolic (congestive) heart failure: (2) History of aortic valve replacement with bioprosthetic valve: (3) CAD (coronary artery disease): (4) Cellulitis: (5) History of carotid endarterectomy: (6) Bilateral carotid artery stenosis: (7) PAD (peripheral artery disease): (8) Diabetes mellitus with peripheral angiopathy: (9) UTI (urinary tract infection): (10) SIRS (systemic inflammatory response syndrome): The patient has had a large diuresis in the past 24 hours. This may have resulted in a marked improvement that was seen today. I would hold the Zaroxolyn today, but continue with the IV Lasix. Subjective The patient looks much improved today. She is actually sitting in a chair today and enjoying her lunch. She has no new complaints. Review of Systems Review of Systems: All systems reviewed & are unremarkable except as noted in HPI & below Nothing additional to add. Physical Exam Physical Exam: General: no acute distress and stated age Head: normocephalic, no masses, lesions, tenderness or abnormalities Eyes: conjunctiva are pink and non-injected, sclera clear Neck: supple, no adenopathy, no bruits, normal jugular venous pulse, no hepatojugular reflux Chest: normal shape and normal respiratory effort Lungs: clear to auscultation and percussion Cardiac Exam: - regular rate & rhythm, no murmurs gallops or rubs - normal S1, normal S2 Pulses: 2(+) throughout Abdomen: abdomen soft, non-tender, no abnormal masses and no hepatosplenomegaly Musculoskeletal: no gait disturbance, no joint inflammation, no deforming arthritis Extremities: Bilateral lower extremity edema which is improving along with the cellulitis. Neuro: grossly normal exam Results & Data Vital Signs (Past 12 Hours) Vital Signs Temp Pulse Pulse Resp BP BP Pulse Ox 10/07/19 11:13 36.8 C 62 24 161/80 H 95 10/07/19 07:22 49 L 10/07/19 07:21 36.4 C L 52 L 18 138/76 94 10/07/19 04:11 36.4 C L 50 L 20 111/61 93 Laboratory Results Laboratory Results - last 24 hr 10/06/19 10/06/19 10/07/19 16:17 20:32 06:56 WBC 6.07 RBC 4.78 Hgb 12.5 Hct 39.9 MCV 83.5 MCH 26.2 MCHC 31.3 L RDW Std Deviation 52.8 H RDW Coeff of Erin 17.4 H Plt Count 218 MPV 10.1 Sodium Potassium Chloride Carbon Dioxide Anion Gap BUN Creatinine Est Cr Clr Drug Dosing Est GFR ( Amer) Est GFR (Non-Af Amer) BUN/Creatinine Ratio Glucose POC Glucose 192 H 188 H Calcium Magnesium 10/07/19 10/07/19 10/07/19 06:56 07:08 11:09 WBC RBC Hgb Hct MCV MCH MCHC RDW Std Deviation RDW Coeff of Erin Plt Count MPV Sodium 136 Potassium 4.0 D Chloride 96 L Carbon Dioxide 33 H Anion Gap 8.0 BUN 51 H Creatinine 1.28 H Est Cr Clr Drug Dosing 43.0 Est GFR ( Amer) 46.4 Est GFR (Non-Af Amer) 40.0 BUN/Creatinine Ratio 39.5 H Glucose 100 H POC Glucose 98 149 H Calcium 9.3 Magnesium 1.9 Medications Administered Current Inpatient Medications Acetaminophen (Tylenol) 650 mg PO Q4H PRN PRN Reason: Pain or Fever Stop: 11/02/19 19:12 Last Admin: 10/06/19 09:44 Dose: 650 mg Documented by: Aspirin (Ecotrin Ectab) 81 mg PO QPM [facility] Stop: 11/02/19 20:59 Last Admin: 10/06/19 19:54 Dose: 81 mg Documented by: Atorvastatin Calcium (Lipitor) 40 mg PO DAILY [facility] Stop: 11/03/19 08:59 Last Admin: 10/07/19 08:06 Dose: 40 mg Documented by: Dextrose (Dextrose 50%) 25 - 50 ml IV UD PRN; Protocol PRN Reason: Hypoglycemia Protocol Stop: 11/02/19 19:12 Doxycycline Hyclate (Vibramycin) 100 mg PO BID [facility]; Protocol Stop: 10/11/19 20:59 Last Admin: 10/07/19 08:06 Dose: 100 mg Documented by: Enoxaparin Sodium (Lovenox) 40 mg SQ Q24H [facility] Stop: 11/02/19 19:59 Last Admin: 10/06/19 19:54 Dose: 40 mg Documented by: Fish Oil ([place]-3 (Purified Fish Oil)) 1 gm PO DAILY [facility] Stop: 11/03/19 08:59 Last Admin: 10/07/19 08:06 Dose: 1 gm Documented by: Glucagon (Glucagen) 1 mg SQ UD PRN; Protocol PRN Reason: Hypoglycemia Protocol Stop: 11/02/19 19:12 Glucose (Dex4 Glucose) 4 - 8 tabs PO UD PRN; Protocol PRN Reason: Hypoglycemia Protocol Stop: 11/02/19 19:12 Glucose (Glucose 40%) 15 - 30 gm PO UD PRN; Protocol PRN Reason: Hypoglycemia Protocol Stop: 11/02/19 19:12 Ceftriaxone Sodium 2,000 mg/ (Dextrose) 70 mls @ 100 mls/hr IV Q24H [facility]; Protocol Stop: 10/10/19 19:59 Last Infusion: 10/06/19 20:38 Dose: Infused Documented by: Furosemide 40 mg/ Syringe 4 mls @ 4 mls/min IV Q8 [facility] Stop: 11/03/19 13:59 Last Admin: 10/07/19 05:38 Dose: 4 mls/min Documented by: Insulin Aspart (Novolog Flexpen) 0 units SC ACHS [facility] Stop: 11/02/19 20:59 Last Admin: 10/07/19 08:26 Dose: 5 units Documented by: Insulin Glargine (Lantus Solostar Pen) 0 - 10 units SC BID [facility] Stop: 11/02/19 20:59 Last Admin: 10/07/19 08:27 Dose: Not Given Documented by: Latanoprost (Xalatan Oph) 1 drops OPR DAILY [facility] Stop: 11/03/19 08:59 Last Admin: 10/07/19 08:06 Dose: 1 drops Documented by: Lisinopril (Zestril) 10 mg PO DAILY [facility] Stop: 11/03/19 08:59 Last Admin: 10/07/19 08:06 Dose: 10 mg Documented by: Metolazone (Zaroxolyn) 2.5 mg PO QAM [facility] Stop: 11/06/19 08:59 Last Admin: 10/07/19 08:06 Dose: 2.5 mg Documented by: Metoprolol Tartrate (Lopressor) 50 mg PO BID [facility] Stop: 11/02/19 20:59 Last Admin: 10/07/19 08:06 Dose: Not Given Documented by: Miconazole Nitrate (Desenex) 1 appln EXT BID [facility] Stop: 11/03/19 20:59 Last Admin: 10/07/19 08:26 Dose: 1 appln Documented by: Miscellaneous (Carbohydrates For Hypoglycemia) 15 - 30 gm PO UD PRN PRN Reason: Hypoglycemia Protocol Stop: 11/02/19 19:12 Last Admin: 10/05/19 07:41 Dose: 15 gm Documented by: Multivitamins (Multivitamin Tab) 1 tab PO DAILY [facility] Stop: 11/03/19 08:59 Last Admin: 10/07/19 08:06 Dose: 1 tab Documented by: Potassium Chloride (Klor-Con M20) 40 meq PO DAILY [facility] Stop: 11/05/19 08:59
--- NOTE | 2019-10-07 12:21 | Hospitalist Progress Note ---
Date of Service October 07, 2019 Assessment & Plan (1) Acute diastolic (congestive) heart failure: (2) Fluid overload: 79 y/o F with PMH HTN, CAD s/p CABG x2, severe aortic stenosis status post aortic valve replacement 2011, DM II status post bilateral carotid endarterectomy with subsequent right-sided restenosis, HTN, PAD, tobacco use presented to ER with complaints of increased lower extremity edema, progressive shortness of breath, weight gain. Had some adjustment oral diuretics without improvement. Seen at cardiology office on 10/03/19 and had echo in office with EF: 55-59%, grade 3 diastolic dysfunction, bioprosthetic aortic valve opening severely reduced with elevated bioprosthetic aortic valve systolic gradient suggesting severe obstruction, moderate tricuspid regurgitation, pulmonary artery systolic pressure 66 mmHg, dilated IVC with normal inspiratory variation suggesting right atrial pressure of 8 mm Hg. In ER pt afebrile, P: 59, R: 32 down 22, BP: 155/71, 94% on RA down to 89% on RA up to 94% on 2L NC No leukocytosis, BNP: 19,000 CXR: 1. Improved right lower lung aeration however persistent right basilar opacity, including a 3.5 cm nodular opacity. Pneumonia is favored. However, radiographic follow-up to exclude the possibility of an underlying mass is recommended. 2. Decrease in size of a small right pleural effusion. 3. Cardiomegaly without evidence for pulmonary edema. Acute diastolic CHF secondary to valvular heart disease Acute hypoxic respiratory failure likely due to fluid overload +/-Pneumonia Continue IV lasix q8h Metolazone added yesterday Improved diuresis. 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 10/04/19 morning, patient was hypothermic and hypoglycemic. Hypothermia may also be from hypoglycemia this morning which resolved with co rrection of hypoglycemia and bairhugger use. Blood cultures are negative Currently on ceftriaxone and doxycycline. Will complete 7 days treatment (3) Cellulitis: Patient does have features of stasis dermatitis on both feet. she has erythema on both feet she has left leg cellulitis too Continue ceftriaxone (4) UTI (urinary tract infection): Patient's urine culture is growing E. coli Sensitivities noted Continue ceftriaxone for now to complete therapy (5) CAD (coronary artery disease): S/p CABG x2 Denies chest pain Continue aspirin, atorvastatin, metoprolol (6) Aortic stenosis: Status post aortic valve replacement in 2011 Echo findings and treatment as above (7) T2DM (type 2 diabetes mellitus): A1c: 13.9 on 05/03/2019 Hold Tresiba NovoLog and Lantus sliding scale per protocol A1c is 8.5 (8) Carotid artery disease: S/p bilateral carotid endarterectomy with restenosis right side (9) HTN (hypertension): Continue lisinopril Monitor Blood pressure (10) Tobacco use: Smoking cessation encouraged DVT Prophylaxis -Lovenox SQ Admission and Anticipated Discharge Date Admission Date: October 03, 2019 Subjective Patient seen and examined today. Patient sitting out in chair Patient reports feeling better today Still reports left leg pain but states that pain is better. Still having cough Denied any fevers, chills, nausea, vomiting Denied any abd pain Denied chest pain or shortness of breath at rest Physical Exam Constitutional: + well hydrated; no acute distress Eyes: PERRL, conjunctivae normal, anicteric sclerae ENMT: external ear and nose normal, oropharynx normal Respiratory: + cough Auscultation: + diminished lung sounds (Lung bases) and + crackles Cardiovascular: Rate/Rhythm: regular rate and regular rhythm Heart Sounds: + murmur (systolic) Extremities: + edema Gastrointestinal (Abdomen): normal bowel sounds, soft, nontender, no hepatosplenomegaly Neurologic: PERRL, EOMI, accommodation nl, no face palsy, no dysarthria Results & Data Results & Data ([facility]) Vital Signs (Past 12 Hours) Vital Signs Temp Pulse Pulse Resp BP BP Pulse Ox 10/07/19 11:13 36.8 C 62 24 161/80 H 95 10/07/19 07:22 49 L 10/07/19 07:21 36.4 C L 52 L 18 138/76 94 10/07/19 04:11 36.4 C L 50 L 20 111/61 93 Laboratory Results Short CBC 10/07/19 Range/Units 06:56 WBC 6.07 (4.8-10.8) K/uL Hgb 12.5 (12.0-16.0) g/dL Hct 39.9 (37-47) % Plt Count 218 (130-400) K/uL BMP 10/07/19 06:56 Sodium 136 Potassium 4.0 D Chloride 96 L Carbon Dioxide 33 H BUN 51 H Creatinine 1.28 H Glucose 100 H Calcium 9.3
[2019-10-07] MEDS: ENOXAPARIN INJ 40 MG/0.4 ML SYR SQ SCH (20:02)
[2019-10-07] MEDS: cefTRIAXone SODIUM 2,000 MG in DEXTROSE 5% 50 ML IV SCH (20:03)
[2019-10-07] MEDS: ASPIRIN 81 MG ECTAB PO SCH (20:04)
[2019-10-08] MEDS: FUROSEMIDE 40 MG in SYRINGE 0 ML IV SCH ×3 (05:47→21:19)
[2019-10-08 07:32] LABS: Hematocrit (blood only) 38.1 % (37-47); Hemoglobin 12.4 g/dL (12.0-16.0); Mean Corpuscular Hemoglobin 26.7 pg (25-34); Mean Corpuscular Hgb Conc 32.5 g/dL (32-36); Mean Corpuscular Volume 81.9 fL (80-100); Mean Platelet Volume 9.9 fL (7.4-10.4); Platelet Count 227 K/uL (130-400); RDW Coefficient of Variation 17.4 % (11.5-14.5); RDW Standard Deviation 51.6 fL (36.4-46.3); Red Blood Count 4.65 M/uL (4.2-5.4); White Blood Count 7.85 K/uL (4.8-10.8)
[2019-10-08] MEDS: ACETAMINOPHEN 325 MG TAB PO PRN (07:49)
[2019-10-08] MEDS: OMEGA-3 (PURIFIED FISH OIL) 1 GM CAP PO SCH (07:50)
[2019-10-08] MEDS: DOXYCYCLINE HYCLATE 100 MG CAP PO SCH ×2 (07:50→21:19)
[2019-10-08] MEDS: ATORVASTATIN 40 MG TAB PO SCH (07:50)
[2019-10-08] MEDS: MULTIVITAMIN TAB PO SCH (07:50)
[2019-10-08] MEDS: INSULIN ASPART 100 UNITS/ML 3 ML PEN SC SCH ×4 (07:51→21:18)
[2019-10-08] MEDS: LATANOPROST 0.005% OP SOLN 2.5 ML BTL OPR SCH (07:52)
[2019-10-08] MEDS: INSULIN GLARGINE SOLOSTAR 100 UNITS/ML 3 ML PEN SC SCH ×2 (07:52→21:17)
[2019-10-08] MEDS: MICONAZOLE NITRATE POWDER 43 GM EXT SCH ×2 (07:53→21:17)
[2019-10-08 08:07] LABS: BUN Creatinine Ratio 35.8 (10-20); Calcium 9.6 mg/dl (8.5-10.1); Creatinine Clr Calc Pharmacy 43.7 ml/min; Est GFR (African American) 47.3; Est GFR (Non-African American) 40.8; Magnesium 1.8 mg/dl (1.8-2.4); Potassium 4.1 mmol/L (3.5-5.1)
[2019-10-08] MEDS: METOPROLOL TARTRATE 50 MG TAB PO SCH ×2 (09:55→21:17)
[2019-10-08] MEDS: lisinopriL 10 MG TAB PO SCH (09:55)
--- NOTE | 2019-10-08 10:27 | Cardiology Progress Note ---
Date of Service October 08, 2019 Assessment & Plan (1) Acute diastolic (congestive) heart failure: (2) History of aortic valve replacement with bioprosthetic valve: (3) CAD (coronary artery disease): (4) Cellulitis: (5) History of carotid endarterectomy: (6) Bilateral carotid artery stenosis: (7) PAD (peripheral artery disease): (8) Diabetes mellitus with peripheral angiopathy: (9) UTI (urinary tract infection): (10) SIRS (systemic inflammatory response syndrome): The patient's blood pressure is low today. She has had a large volume of diuresis and could be intravascularly volume depleted. I held her lisinopril. I believe that nursing is holding her metoprolol based on protocol. Otherwise she is doing well. The edema of her legs is improving along with her cellulitis. I would hold off on Zaroxolyn today but would continue the IV Lasix. Subjective The patient had another large diuresis over the past 24 hours. She was moved to a private room as a POI for [employer]. The patient study was negative. Review of Systems Review of Systems: All systems reviewed & are unremarkable except as noted in HPI & below Nothing additional to add Physical Exam Physical Exam: General: no acute distress and stated age Head: normocephalic, no masses, lesions, tenderness or abnormalities Eyes: conjunctiva are pink and non-injected, sclera clear Neck: supple, no adenopathy, no bruits, normal jugular venous pulse, no hepatojugular reflux Chest: normal shape and normal respiratory effort Lungs: clear to auscultation and percussion Cardiac Exam: - regular rate & rhythm, no murmurs gallops or rubs - normal S1, normal S2 Pulses: 2(+) throughout Abdomen: abdomen soft, non-tender, no abnormal masses and no hepatosplenomegaly Musculoskeletal: no gait disturbance, no joint inflammation, no deforming arthritis Extremities: Edema bilaterally improving Neuro: grossly normal exam Results & Data Vital Signs (Past 12 Hours) Vital Signs Temp Pulse Pulse Pulse Resp BP Pulse Ox 10/08/19 09:54 72/44 L 10/08/19 09:45 87 67/54 L 10/08/19 07:37 36.2 C L 83 16 88/59 L 92 10/08/19 04:24 36.2 C L 86 20 93/65 L 91 10/08/19 00:31 77 10/08/19 00:16 36.3 C L 89 20 109/71 92 Laboratory Results Laboratory Results - last 24 hr 10/07/19 10/07/19 10/07/19 11:09 16:20 16:41 WBC RBC Hgb Hct MCV MCH MCHC RDW Std Deviation RDW Coeff of Erin Plt Count MPV Sodium Potassium Chloride Carbon Dioxide Anion Gap BUN Creatinine Est Cr Clr Drug Dosing Est GFR ( Amer) Est GFR (Non-Af Amer) BUN/Creatinine Ratio Glucose POC Glucose 149 H 150 H Calcium Magnesium SARS-CoV-2 RNA (RT-PCR) NEGATIVE 10/07/19 10/08/19 10/08/19 20:21 07:16 07:16 WBC 7.85 RBC 4.65 Hgb 12.4 Hct 38.1 MCV 81.9 MCH 26.7 MCHC 32.5 RDW Std Deviation 51.6 H RDW Coeff of Erin 17.4 H Plt Count 227 MPV 9.9 Sodium 133 L Potassium 4.1 Chloride 92 L Carbon Dioxide 33 H Anion Gap 8.0 BUN 45 H Creatinine 1.26 H Est Cr Clr Drug Dosing 43.7 Est GFR ( Amer) 47.3 Est GFR (Non-Af Amer) 40.8 BUN/Creatinine Ratio 35.8 H Glucose 137 H POC Glucose 173 H Calcium 9.6 Magnesium 1.8 SARS-CoV-2 RNA (RT-PCR) 10/08/19 07:43 WBC RBC Hgb Hct MCV MCH MCHC RDW Std Deviation RDW Coeff of Erin Plt Count MPV Sodium Potassium Chloride Carbon Dioxide Anion Gap BUN Creatinine Est Cr Clr Drug Dosing Est GFR ( Amer) Est GFR (Non-Af Amer) BUN/Creatinine Ratio Glucose POC Glucose 135 H Calcium Magnesium SARS-CoV-2 RNA (RT-PCR) Medications Administered Current Inpatient Medications Acetaminophen (Tylenol) 650 mg PO Q4H PRN PRN Reason: Pain or Fever Stop: 11/02/19 19:12 Last Admin: 10/08/19 07:49 Dose: 650 mg Documented by: Aspirin (Ecotrin Ectab) 81 mg PO QPM [facility] Stop: 11/02/19 20:59 Last Admin: 10/07/19 20:04 Dose: 81 mg Documented by: Atorvastatin Calcium (Lipitor) 40 mg PO DAILY [facility] Stop: 11/03/19 08:59 Last Admin: 10/08/19 07:50 Dose: 40 mg Documented by: Dextrose (Dextrose 50%) 25 - 50 ml IV UD PRN; Protocol PRN Reason: Hypoglycemia Protocol Stop: 11/02/19 19:12 Doxycycline Hyclate (Vibramycin) 100 mg PO BID [facility]; Protocol Stop: 10/11/19 20:59 Last Admin: 10/08/19 07:50 Dose: 100 mg Documented by: Enoxaparin Sodium (Lovenox) 40 mg SQ Q24H [facility] Stop: 11/02/19 19:59 Last Admin: 10/07/19 20:02 Dose: 40 mg Documented by: Fish Oil ([place]-3 (Purified Fish Oil)) 1 gm PO DAILY [facility] Stop: 11/03/19 08:59 Last Admin: 10/08/19 07:50 Dose: 1 gm Documented by: Glucagon (Glucagen) 1 mg SQ UD PRN; Protocol PRN Reason: Hypoglycemia Protocol Stop: 11/02/19 19:12 Glucose (Dex4 Glucose) 4 - 8 tabs PO UD PRN; Protocol PRN Reason: Hypoglycemia Protocol Stop: 11/02/19 19:12 Glucose (Glucose 40%) 15 - 30 gm PO UD PRN; Protocol PRN Reason: Hypoglycemia Protocol Stop: 11/02/19 19:12 Ceftriaxone Sodium 2,000 mg/ (Dextrose) 70 mls @ 100 mls/hr IV Q24H [facility]; P rotocol Stop: 10/10/19 19:59 Last Infusion: 10/07/19 20:57 Dose: Infused Documented by: Furosemide 40 mg/ Syringe 4 mls @ 4 mls/min IV Q8 [facility] Stop: 11/03/19 13:59 Last Admin: 10/08/19 05:47 Dose: 4 mls/min Documented by: Insulin Aspart (Novolog Flexpen) 0 units SC ACHS [facility] Stop: 11/02/19 20:59 Last Admin: 10/08/19 07:51 Dose: 4 units Documented by: Insulin Glargine (Lantus Solostar Pen) 0 - 10 units SC BID [facility] Stop: 11/02/19 20:59 Last Admin: 10/08/19 07:52 Dose: 5 units Documented by: Latanoprost (Xalatan Oph) 1 drops OPR DAILY [facility] Stop: 11/03/19 08:59 Last Admin: 10/08/19 07:52 Dose: 1 drops Documented by: Lisinopril (Zestril) 10 mg PO DAILY [facility] Stop: 11/03/19 08:59 Last Admin: 10/08/19 09:55 Dose: Not Given Documented by: Metolazone (Zaroxolyn) 2.5 mg PO QAM [facility] Stop: 11/06/19 08:59 Last Admin: 10/07/19 08:06 Dose: 2.5 mg Documented by: Metoprolol Tartrate (Lopressor) 50 mg PO BID [facility] Stop: 11/02/19 20:59 Last Admin: 10/08/19 09:55 Dose: Not Given Documented by: Miconazole Nitrate (Desenex) 1 appln EXT BID [facility] Stop: 11/03/19 20:59 Last Admin: 10/08/19 07:53 Dose: 1 appln Documented by: Miscellaneous (Carbohydrates For Hypoglycemia) 15 - 30 gm PO UD PRN PRN Reason: Hypoglycemia Protocol Stop: 11/02/19 19:12 Last Admin: 10/05/19 07:41 Dose: 15 gm Documented by: Multivitamins (Multivitamin Tab) 1 tab PO DAILY [facility] Stop: 11/03/19 08:59 Last Admin: 10/08/19 07:50 Dose: 1 tab Documented by: Potassium Chloride (Klor-Con M20) 40 meq PO DAILY [facility] Stop: 11/05/19 08:59
--- NOTE | 2019-10-08 11:09 | Hospitalist Progress Note ---
Date of Service October 08, 2019 Assessment & Plan (1) Acute diastolic (congestive) heart failure: (2) Fluid overload: 79 y/o F with PMH HTN, CAD s/p CABG x2, severe aortic stenosis status post aortic valve replacement 2011, DM II status post bilateral carotid endarterectomy with subsequent right-sided restenosis, HTN, PAD, tobacco use presented to ER with complaints of increased lower extremity edema, progressive shortness of breath, weight gain. Had some adjustment oral diuretics without improvement. Seen at cardiology office on 10/03/19 and had echo in office with EF: 55-59%, grade 3 diastolic dysfunction, bioprosthetic aortic valve opening severely reduced with elevated bioprosthetic aortic valve systolic gradient suggesting severe obstruction, moderate tricuspid regurgitation, pulmonary artery systolic pressure 66 mmHg, dilated IVC with normal inspiratory variation suggesting right atrial pressure of 8 mm Hg. In ER pt afebrile, P: 59, R: 32 down 22, BP: 155/71, 94% on RA down to 89% on RA up to 94% on 2L NC No leukocytosis, BNP: 19,000 CXR: 1. Improved right lower lung aeration however persistent right basilar opacity, including a 3.5 cm nodular opacity. Pneumonia is favored. However, radiographic follow-up to exclude the possibility of an underlying mass is recommended. 2. Decrease in size of a small right pleural effusion. 3. Cardiomegaly without evidence for pulmonary edema. Acute diastolic CHF secondary to valvular heart disease Acute hypoxic respiratory failure likely due to fluid overload +/-Pneumonia Continue IV lasix q8h Got one dose of metolazone 2 days ago. Has been having large volume diuresis since. -3 L in past 24h Continue to hold metolazone for now Monitor electrolytes with diuresis Was hypotensive this AM, lisinopril held. Asymptomatic. 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 10/04/19 morning, patient was hypothermic and hypoglycemic. Hypothermia may also be from hypoglycemia this morning which resolved with correction of hypoglycemia and bairhugger use. Blood cultures are negative Currently on ceftriaxone and doxycycline. Will complete 7 days treatment (3) Cellulitis: Patient does have features of stasis dermatitis on both feet. She has erythema on both feet with tenderness over the left Lower extremity cellulitis Continue ceftriaxone (4) UTI (urinary tract infection): Patient's urine culture is growing E. coli Sensitivities noted Continue ceftriaxone for now to complete therapy (5) CAD (coronary artery disease): S/p CABG x2 Denies chest pain Continue aspirin, atorvastatin, metoprolol (6) Aortic stenosis: Status post aortic valve replacement in 2011 Echo findings and treatment as above (7) T2DM (type 2 diabetes mellitus): A1c: 13.9 on 05/03/2019 Hold Tresiba NovoLog and Lantus sliding scale per protocol A1c is 8.5 (8) Carotid artery disease: S/p bilateral carotid endarterectomy with restenosis right side (9) HTN (hypertension): Lisinopril on hold for now due to hypotension earlier Monitor BP (10) Tobacco use: Smoking cessation encouraged DVT Prophylaxis -Lovenox SQ Admission and Anticipated Discharge Date Admission Date: October 03, 2019 Subjective Patient seen and examined. Patient continues to have large volume diuresis Patient is more alert today and interactive. Still reports light left leg pain but states that this is improved. Still has cough Denies any shortness of breath, chest pain or palpitations Physical Exam Constitutional: + well hydrated; no acute distress Eyes: PERRL, conjunctivae normal, anicteric sclerae ENMT: external ear and nose normal, oropharynx normal Respiratory: Auscultation: + diminished lung sounds (Lung bases); no crackles Cardiovascular: Rate/Rhythm: regular rate and regular rhythm Heart Sounds: + murmur (systolic) Extremities: + edema Gastrointestinal (Abdomen): normal bowel sounds, soft, nontender, no hepatosplenomegaly Musculoskeletal: B/l MATILDA ++. Erythema in both legs. Tenderness over left leg. Dressing over ruptured blister on left leg Neurologic: PERRL, EOMI, accommodation nl, no face palsy, no dysarthria AOX2 Results & Data Results & Data ([facility]) Vital Signs (Past 12 Hours) Vital Signs Temp Pulse Pulse Pulse Resp BP Pulse Ox 10/08/19 09:54 72/44 L 10/08/19 09:45 87 67/54 L 10/08/19 07:37 36.2 C L 83 16 88/59 L 92 10/08/19 04:24 36.2 C L 86 20 93/65 L 91 10/08/19 00:31 77 10/08/19 00:16 36.3 C L 89 20 109/71 92 Laboratory Results Short CBC 10/08/19 Range/Units 07:16 WBC 7.85 (4.8-10.8) K/uL Hgb 12.4 (12.0-16.0) g/dL Hct 38.1 (37-47) % Plt Count 227 (130-400) K/uL BMP 10/08/19 07:16 Sodium 133 L Potassium 4.1 Chloride 92 L Carbon Dioxide 33 H BUN 45 H Creatinine 1.26 H Glucose 137 H Calcium 9.6
[2019-10-08] MEDS: ENOXAPARIN INJ 40 MG/0.4 ML SYR SQ SCH (21:16)
[2019-10-08] MEDS: cefTRIAXone SODIUM 2,000 MG in DEXTROSE 5% 50 ML IV SCH (21:16)
[2019-10-08] MEDS: ASPIRIN 81 MG ECTAB PO SCH (21:17)
[2019-10-09] MEDS: FUROSEMIDE 40 MG in SYRINGE 0 ML IV SCH ×3 (05:53→20:55)
[2019-10-09 06:40] LABS: Hematocrit (blood only) 39.8 % (37-47); Hemoglobin 12.8 g/dL (12.0-16.0); Mean Corpuscular Hemoglobin 26.2 pg (25-34); Mean Corpuscular Hgb Conc 32.2 g/dL (32-36); Mean Corpuscular Volume 81.6 fL (80-100); Mean Platelet Volume 9.9 fL (7.4-10.4); Platelet Count 231 K/uL (130-400); RDW Coefficient of Variation 17.5 % (11.5-14.5); RDW Standard Deviation 51.7 fL (36.4-46.3); Red Blood Count 4.88 M/uL (4.2-5.4); White Blood Count 5.86 K/uL (4.8-10.8)
[2019-10-09 07:13] LABS: BUN Creatinine Ratio 43.1 (10-20); Calcium 9.2 mg/dl (8.5-10.1); Creatinine Clr Calc Pharmacy 49.6 ml/min; Est GFR (African American) 57.6; Est GFR (Non-African American) 49.7; Magnesium 1.7 mg/dl (1.8-2.4); Phosphorus 4.9 mg/dl (2.5-4.9); Potassium 3.9 mmol/L (3.5-5.1)
[2019-10-09] MEDS: INSULIN ASPART 100 UNITS/ML 3 ML PEN SC SCH ×4 (08:14→20:57)
[2019-10-09] MEDS: METOPROLOL TARTRATE 50 MG TAB PO SCH ×2 (08:15→21:01)
[2019-10-09] MEDS: DOXYCYCLINE HYCLATE 100 MG CAP PO SCH ×2 (08:15→21:01)
[2019-10-09] MEDS: INSULIN GLARGINE SOLOSTAR 100 UNITS/ML 3 ML PEN SC SCH ×2 (08:16→20:59)
[2019-10-09] MEDS: LATANOPROST 0.005% OP SOLN 2.5 ML BTL OPR SCH (08:18)
[2019-10-09] MEDS: MICONAZOLE NITRATE POWDER 43 GM EXT SCH ×2 (08:19→21:00)
[2019-10-09] MEDS: MULTIVITAMIN TAB PO SCH (08:24)
[2019-10-09] MEDS: ATORVASTATIN 40 MG TAB PO SCH (08:24)
[2019-10-09] MEDS: OMEGA-3 (PURIFIED FISH OIL) 1 GM CAP PO SCH (08:25)
[2019-10-09] MEDS ORDERED: MAGNESIUM SULFATE / D5W 1 GM/100 ML BAG IV ONE (08:30)
--- NOTE | 2019-10-09 11:31 | Cardiology Progress Note ---
Date of Service October 09, 2019 Assessment & Plan (1) Acute diastolic (congestive) heart failure: (2) History of aortic valve replacement with bioprosthetic valve: (3) CAD (coronary artery disease): (4) Cellulitis: (5) History of carotid endarterectomy: (6) Bilateral carotid artery stenosis: (7) PAD (peripheral artery disease): (8) Diabetes mellitus with peripheral angiopathy: (9) UTI (urinary tract infection): (10) SIRS (systemic inflammatory response syndrome): The patient could use another day of IV diuretics. Otherwise she is doing well. Subjective Patient resting comfortably in a chair. No new complaints today. Review of Systems Review of Systems: All systems reviewed & are unremarkable except as noted in HPI & below Nothing additional to add Physical Exam Physical Exam: General: no acute distress and stated age Head: normocephalic, no masses, lesions, tenderness or abnormalities Eyes: conjunctiva are pink and non-injected, sclera clear Neck: supple, no adenopathy, no bruits, normal jugular venous pulse, no hepatojugular reflux Chest: normal shape and normal respiratory effort Lungs: clear to auscultation and percussion Cardiac Exam: - regular rate & rhythm, no murmurs gallops or rubs - normal S1, normal S2 Pulses: 2(+) throughout Abdomen: abdomen soft, non-tender, no abnormal masses and no hepatosplenomegaly Musculoskeletal: no gait disturbance, no joint inflammation, no deforming arthritis Extremities: Improving bilateral lower extremity edema. Neuro: grossly normal exam Results & Data Vital Signs (Past 12 Hours) Vital Signs Temp Pulse Pulse Resp BP Pulse Ox 10/09/19 07:44 36.8 C 74 18 94/56 L 96 10/09/19 03:58 36.7 C 70 20 101/56 L 94 10/09/19 00:20 36.4 C L 72 20 96/50 L 91 10/09/19 00:00 79 Laboratory Results Laboratory Results - last 24 hr 10/08/19 10/08/19 10/08/19 11:40 16:38 20:38 WBC RBC Hgb Hct MCV MCH MCHC RDW Std Deviation RDW Coeff of Erin Plt Count MPV Sodium Potassium Chloride Carbon Dioxide Anion Gap BUN Creatinine Est Cr Clr Drug Dosing Est GFR ( Amer) Est GFR (Non-Af Amer) BUN/Creatinine Ratio Glucose POC Glucose 175 H 192 H 261 H Calcium Phosphorus Magnesium 10/09/19 10/09/19 10/09/19 06:13 06:13 07:19 WBC 5.86 RBC 4.88 Hgb 12.8 Hct 39.8 MCV 81.6 MCH 26.2 MCHC 32.2 RDW Std Deviation 51.7 H RDW Coeff of Erin 17.5 H Plt Count 231 MPV 9.9 Sodium 133 L Potassium 3.9 Chloride 92 L Carbon Dioxide 33 H Anion Gap 8.0 BUN 46 H Creatinine 1.07 Est Cr Clr Drug Dosing 49.6 Est GFR ( Amer) 57.6 Est GFR (Non-Af Amer) 49.7 BUN/Creatinine Ratio 43.1 H Glucose 86 POC Glucose 82 Calcium 9.2 Phosphorus 4.9 Magnesium 1.7 L 10/09/19 11:11 WBC RBC Hgb Hct MCV MCH MCHC RDW Std Deviation RDW Coeff of Erin Plt Count MPV Sodium Potassium Chloride Carbon Dioxide Anion Gap BUN Creatinine Est Cr Clr Drug Dosing Est GFR ( Amer) Est GFR (Non-Af Amer) BUN/Creatinine Ratio Glucose POC Glucose 132 H Calcium Phosphorus Magnesium Medications Administered Current Inpatient Medications Acetaminophen (Tylenol) 650 mg PO Q4H PRN PRN Reason: Pain or Fever Stop: 11/02/19 19:12 Last Admin: 10/08/19 07:49 Dose: 650 mg Documented by: Aspirin (Ecotrin Ectab) 81 mg PO QPM [facility] Stop: 11/02/19 20:59 Last Admin: 10/08/19 21:17 Dose: 81 mg Documented by: Atorvastatin Calcium (Lipitor) 40 mg PO DAILY [facility] Stop: 11/03/19 08:59 Last Admin: 10/09/19 08:24 Dose: 40 mg Documented by: Dextrose (Dextrose 50%) 25 - 50 ml IV UD PRN; Protocol PRN Reason: Hypoglycemia Protocol Stop: 11/02/19 19:12 Doxycycline Hyclate (Vibramycin) 100 mg PO BID [facility]; Protocol Stop: 10/11/19 20:59 Last Admin: 10/09/19 08:15 Dose: 100 mg Documented by: Enoxaparin Sodium (Lovenox) 40 mg SQ Q24H [facility] Stop: 11/02/19 19:59 Last Admin: 10/08/19 21:16 Dose: 40 mg Documented by: Fish Oil ([place]-3 (Purified Fish Oil)) 1 gm PO DAILY [facility] Stop: 11/03/19 08:59 Last Admin: 10/09/19 08:25 Dose: 1 gm Documented by: Glucagon (Glucagen) 1 mg SQ UD PRN; Protocol PRN Reason: Hypoglycemia Protocol Stop: 11/02/19 19:12 Glucose (Dex4 Glucose) 4 - 8 tabs PO UD PRN; Protocol PRN Reason: Hypoglycemia Protocol Stop: 11/02/19 19:12 Glucose (Glucose 40%) 15 - 30 gm PO UD PRN; Protocol PRN Reason: Hypoglycemia Protocol Stop: 11/02/19 19:12 Ceftriaxone Sodium 2,000 mg/ (Dextrose) 70 mls @ 100 mls/hr IV Q24H [facility]; Protocol Stop: 10/10/19 19:59 Last Infusion: 10/08/19 22:19 Dose: Infused Documented by: Furosemide 40 mg/ Syringe 4 mls @ 4 mls/min IV Q8 [facility] Stop: 11/03/19 13:59 Last Admin: 10/09/19 05:53 Dose: 4 mls/min Documented by: Insulin Aspart (Novolog Flexpen) 0 units SC ACHS [facility] Stop: 11/02/19 20:59 Last Admin: 10/09/19 08:14 Dose: 7 units Documented by: Insulin Glargine (Lantus Solostar Pen) 0 - 10 units SC BID [facility] Stop: 11/02/19 20:59 Last Admin: 10/09/19 08:16 Dose: Not Given Documented by: Latanoprost (Xalatan Oph) 1 drops OPR DAILY [facility] Stop: 11/03/19 08:59 Last Admin: 10/09/19 08:18 Dose: 1 drops Documented by: Lisinopril (Zestril) 10 mg PO DAILY [facility] Stop: 11/03/19 08:59 Last Admin: 10/08/19 09:55 Dose: Not Given Documented by: Metolazone (Zaroxolyn) 2.5 mg PO QAM [facility] Stop: 11/06/19 08:59 Last Admin: 10/07/19 08:06 Dose: 2.5 mg Documented by: Metoprolol Tartrate (Lopressor) 50 mg PO BID [facility] Stop: 11/02/19 20:59 Last Admin: 10/09/19 08:15 Dose: 50 mg Documented by: Miconazole Nitrate (Desenex) 1 appln EXT BID [facility] Stop: 11/03/19 20:59 Last Admin: 10/09/19 08:19 Dose: 1 appln Documented by: Miscellaneous (Carbohydrates For Hypoglycemia) 15 - 30 gm PO UD PRN PRN Reason: Hypoglycemia Protocol Stop: 11/02/19 19:12 Last Admin: 10/05/19 07:41 Dose: 15 gm Documented by: Multivitamins (Multivitamin Tab) 1 tab PO DAILY [facility] Stop: 11/03/19 08:59 Last Admin: 10/09/19 08:24 Dose: 1 tab Documented by: Potassium Chloride (Klor-Con M20) 40 meq PO DAILY [facility] Stop: 11/05/19 08:59
--- NOTE | 2019-10-09 18:57 | Hospitalist Progress Note ---
Date of Service October 09, 2019 Assessment & Plan (1) Acute diastolic (congestive) heart failure: (2) Fluid overload: Patient is a 79 yr female with H/O HTN, CAD s/p CABG x2, severe aortic stenosis status post aortic valve replacement 2011, DM II status post bilateral carotid endarterectomy with subsequent right-sided restenosis, HTN, PAD, tobacco use presented to ER with complaints of increased lower extremity edema, progressive shortness of breath, weight gain. Had some adjustment oral diuretics without improvement. Acute diastolic heart failure H/O aortic valve replacement Acute hypoxic respiratory failure likely due to fluid overload +/-Pneumonia --CXR: Improved right lower lung aeration however persistent right basilar opacity, including a 3.5 cm nodular opacity. Pneumonia is favored. However, radiographic follow-up to exclude the possibility of an underlying mass is recommended. Decrease in size of a small right pleural effusion. 3. Cardiomegaly without evidence for pulmonary edema. --Continue IV diuretics --Monitor volume status, electrolytes, renal function -Appreciate Cardiology Input -Wean off of oxygen as able -Continue antibiotics for possible pneumonia -Blood cultures:negative to date -Lisinopril currently on hold due to relative low blood pressure (3) Cellulitis: Stasis Dermatitis B/L Lower extremity cellulitis Continue ceftriaxone (4) UTI (urinary tract infection): Urine Cx: Pansensitive E. coli Continue ceftriaxone (5) CAD (coronary artery disease): S/p CABG x2 Denies chest pain Continue aspirin, atorvastatin, metoprolol (6) Aortic stenosis: Status post aortic valve replacement in 2011 continue current meds (7) T2DM (type 2 diabetes mellitus): A1c: 13.9 on 05/03/2019 A1c is 8.5 Hold Tresiba NovoLog and Lantus sliding scale per protocol (8) Carotid artery disease: S/p bilateral carotid endarterectomy with restenosis right side (9) HTN (hypertension): Lisinopril on hold Monitor BP (10) Tobacco use: Smoking cessation encouraged DVT Px Lovenox SQ Code Status Full Code Disposition PT/OT prior to discharge Admission and Anticipated Discharge Date Admission Date: October 03, 2019 Subjective Patient is seen and examined at bedside Offers no new complaints Poorly slept overnight Denies any chest pain, shortness of breath, dizziness, nausea, abdominal pain Physical Exam Physical Exam: Physical Exam: Vitals signs as noted above General Appearance:Moderately built and nourished, no apparent distress Head: normocephalic, Atraumatic Eyes: normal inspection, EOMI, PERRL Neck: supple, Trachea midline Respiratory/Chest: Normal breath sounds, basal crackles, No accessory muscle use Cardiovascular: S1, S2, + murmur Abdomen/GI:Soft, Non tender, Bowel sounds present Extremities/Musculoskelatal:normal inspection, B/L LE edema, + leg wounds/erythema Neurologic/Psych:AAOX3, grossly no focal neurological deficits Skin: normal color, warm Results & Data Results & Data ([facility]) Vital Signs (Past 12 Hours) Vital Signs Temp Pulse Resp BP Pulse Ox 10/09/19 15:38 36.7 C 67 18 112/72 90 10/09/19 11:33 36.5 C 76 16 104/61 10/09/19 07:44 36.8 C 74 18 94/56 L 96 Laboratory Results Short CBC 10/09/19 Range/Units 06:13 WBC 5.86 (4.8-10.8) K/uL Hgb 12.8 (12.0-16.0) g/dL Hct 39.8 (37-47) % Plt Count 231 (130-400) K/uL BMP 10/09/19 06:13 Sodium 133 L Potassium 3.9 Chloride 92 L Carbon Dioxide 33 H BUN 46 H Creatinine 1.07 Glucose 86 Calcium 9.2
[2019-10-09] MEDS: ENOXAPARIN INJ 40 MG/0.4 ML SYR SQ SCH (21:00)
[2019-10-09] MEDS: cefTRIAXone SODIUM 2,000 MG in DEXTROSE 5% 50 ML IV SCH (21:00)
[2019-10-09] MEDS: ASPIRIN 81 MG ECTAB PO SCH (21:02)
[2019-10-10] MEDS: FUROSEMIDE 40 MG in SYRINGE 0 ML IV SCH (05:23)
[2019-10-10 06:51] LABS: BUN Creatinine Ratio 39.8 (10-20); Calcium 8.8 mg/dl (8.5-10.1); Creatinine Clr Calc Pharmacy 44.5 ml/min; Est GFR (African American) 50.1; Est GFR (Non-African American) 43.3; Magnesium 1.9 mg/dl (1.8-2.4); Potassium 3.7 mmol/L (3.5-5.1)
[2019-10-10] MEDS: MICONAZOLE NITRATE POWDER 43 GM EXT SCH ×2 (08:12→20:45)
[2019-10-10] MEDS: INSULIN ASPART 100 UNITS/ML 3 ML PEN SC SCH ×4 (08:12→20:45)
[2019-10-10] MEDS: INSULIN GLARGINE SOLOSTAR 100 UNITS/ML 3 ML PEN SC SCH ×2 (08:13→20:44)
[2019-10-10] MEDS: MULTIVITAMIN TAB PO SCH (08:14)
[2019-10-10] MEDS: LATANOPROST 0.005% OP SOLN 2.5 ML BTL OPR SCH (08:14)
[2019-10-10] MEDS: OMEGA-3 (PURIFIED FISH OIL) 1 GM CAP PO SCH (08:14)
[2019-10-10] MEDS: ATORVASTATIN 40 MG TAB PO SCH (08:14)
[2019-10-10] MEDS: METOPROLOL TARTRATE 50 MG TAB PO SCH ×2 (08:14→20:44)
[2019-10-10] MEDS: DOXYCYCLINE HYCLATE 100 MG CAP PO SCH ×2 (09:06→20:44)
[2019-10-10] MEDS ORDERED: POTASSIUM CHLORIDE 20 MEQ TABCR PO STA (12:30)
--- NOTE | 2019-10-10 12:43 | Cardiology Progress Note ---
Date of Service October 10, 2019 Assessment & Plan (1) Acute diastolic (congestive) heart failure: (2) History of aortic valve replacement with bioprosthetic valve: (3) CAD (coronary artery disease): (4) Cellulitis: (5) History of carotid endarterectomy: (6) Bilateral carotid artery stenosis: (7) PAD (peripheral artery disease): (8) Diabetes mellitus with peripheral angiopathy: (9) UTI (urinary tract infection): (10) SIRS (systemic inflammatory response syndrome): Today I discontinue the IV diuretics. She is I believe a dry weight. She will remain on Lasix 40 mg p.o. twice daily. We will reassess her tomorrow. I think discharge planning can start. Subjective The patient had an uneventful night. No new complaints today. Review of Systems Review of Systems: All systems reviewed & are unremarkable except as noted in HPI & below Nothing additional to add. Physical Exam Physical Exam: General: no acute distress and stated age Head: normocephalic, no masses, lesions, tenderness or abnormalities Eyes: conjunctiva are pink and non-injected, sclera clear Neck: supple, no adenopathy, no bruits, normal jugular venous pulse, no hepatojugular reflux Chest: normal shape and normal respiratory effort Lungs: clear to auscultation and percussion Cardiac Exam: - regular rate & rhythm, systolic murmur Pulses: 2(+) throughout Abdomen: abdomen soft, non-tender, no abnormal masses and no hepatosplenomegaly Musculoskeletal: no gait disturbance, no joint inflammation, no deforming arthritis Extremities: Minimal edema. Erythema has resolved. Neuro: grossly normal exam Results & Data Vital Signs (Past 12 Hours) Vital Signs Temp Pulse Resp BP BP Pulse Ox 10/10/19 11:25 92/65 L 10/10/19 11:11 36.4 C L 61 17 84/56 L 92 10/10/19 08:00 102/60 10/10/19 07:33 36.4 C L 59 L 19 97/53 L 92 10/10/19 04:49 36.4 C L 64 18 108/65 93 Laboratory Results Laboratory Results - last 24 hr 10/09/19 10/09/19 10/10/19 16:22 20:35 06:01 Sodium 133 L Potassium 3.7 Chloride 91 L Carbon Dioxide 35 H Anion Gap 7.0 BUN 48 H Creatinine 1.20 Est Cr Clr Drug Dosing 44.5 Est GFR ( Amer) 50.1 Est GFR (Non-Af Amer) 43.3 BUN/Creatinine Ratio 39.8 H Glucose 96 POC Glucose 108 H 256 H Calcium 8.8 Magnesium 1.9 10/10/19 10/10/19 07:13 11:32 Sodium Potassium Chloride Carbon Dioxide Anion Gap BUN Creatinine Est Cr Clr Drug Dosing Est GFR ( Amer) Est GFR (Non-Af Amer) BUN/Creatinine Ratio Glucose POC Glucose 96 205 H Calcium Magnesium Medications Administered Current Inpatient Medications Acetaminophen (Tylenol) 650 mg PO Q4H PRN PRN Reason: Pain or Fever Stop: 11/02/19 19:12 Last Admin: 10/08/19 07:49 Dose: 650 mg Documented by: Aspirin (Ecotrin Ectab) 81 mg PO QPM [facility] Stop: 11/02/19 20:59 Last Admin: 10/09/19 21:02 Dose: 81 mg Documented by: Atorvastatin Calcium (Lipitor) 40 mg PO DAILY [facility] Stop: 11/03/19 08:59 Last Admin: 10/10/19 08:14 Dose: 40 mg Documented by: Dextrose (Dextrose 50%) 25 - 50 ml IV UD PRN; Protocol PRN Reason: Hypoglycemia Protocol Stop: 11/02/19 19:12 Doxycycline Hyclate (Vibramycin) 100 mg PO BID [facility]; Protocol Stop: 10/11/19 20:59 Last Admin: 10/10/19 09:06 Dose: 100 mg Documented by: Enoxaparin Sodium (Lovenox) 40 mg SQ Q24H [facility] Stop: 11/02/19 19:59 Last Admin: 10/09/19 21:00 Dose: 40 mg Documented by: Fish Oil ([place]-3 (Purified Fish Oil)) 1 gm PO DAILY [facility] Stop: 11/03/19 08:59 Last Admin: 10/10/19 08:14 Dose: 1 gm Documented by: Furosemide (Lasix) 40 mg PO BID17 [facility] Stop: 11/09/19 16:59 Glucagon (Glucagen) 1 mg SQ UD PRN; Protocol PRN Reason: Hypoglycemia Protocol Stop: 11/02/19 19:12 Glucose (Dex4 Glucose) 4 - 8 tabs PO UD PRN; Protocol PRN Reason: Hypoglycemia Protocol Stop: 06/13/20 19:12 Glucose (Glucose 40%) 15 - 30 gm PO UD PRN; Protocol PRN Reason: Hypoglycemia Protocol Stop: 11/02/19 19:12 Ceftriaxone Sodium 2,000 mg/ (Dextrose) 70 mls @ 100 mls/hr IV Q24H [facility]; Protocol Stop: 10/10/19 19:59 Last Infusion: 10/09/19 22:08 Dose: Infused Documented by: Insulin Aspart (Novolog Flexpen) 0 units SC ACHS [facility] Stop: 11/02/19 20:59 Last Admin: 10/10/19 11:58 Dose: 9 units Documented by: Insulin Glargine (Lantus Solostar Pen) 0 - 10 units SC BID [facility] Stop: 11/02/19 20:59 Last Admin: 10/10/19 08:13 Dose: Not Given Documented by: Latanoprost (Xalatan Oph) 1 drops OPR DAILY [facility] Stop: 11/03/19 08:59 Last Admin: 10/10/19 08:14 Dose: 1 drops Documented by: Lisinopril (Zestril) 10 mg PO DAILY [facility] Stop: 11/03/19 08:59 Last Admin: 10/08/19 09:55 Dose: Not Given Documented by: Metolazone (Zaroxolyn) 2.5 mg PO QAM [facility] Stop: 11/06/19 08:59 Last Admin: 10/07/19 08:06 Dose: 2.5 mg Documented by: Metoprolol Tartrate (Lopressor) 50 mg PO BID [facility] Stop: 11/02/19 20:59 Last Admin: 10/10/19 08:14 Dose: 50 mg Documented by: Miconazole Nitrate (Desenex) 1 appln EXT BID [facility] Stop: 11/03/19 20:59 Last Admin: 10/10/19 08:12 Dose: 1 appln Documented by: Miscellaneous (Carbohydrates For Hypoglycemia) 15 - 30 gm PO UD PRN PRN Reason: Hypoglycemia Protocol Stop: 11/02/19 19:12 Last Admin: 10/05/19 07:41 Dose: 15 gm Documented by: Multivitamins (Multivitamin Tab) 1 tab PO DAILY [facility] Stop: 11/03/19 08:59 Last Admin: 10/10/19 08:14 Dose: 1 tab Documented by: Potassium Chloride (Klor-Con M20) 40 meq PO DAILY [facility] Stop: 11/05/19 08:59
[2019-10-10] MEDS: FUROSEMIDE 40 MG TAB PO SCH (17:12)
--- NOTE | 2019-10-10 17:45 | Hospitalist Progress Note ---
Date of Service October 10, 2019 Assessment & Plan (1) Acute diastolic (congestive) heart failure: (2) Fluid overload: Patient is a 79 yr female with H/O HTN, CAD s/p CABG x2, severe aortic stenosis status post aortic valve replacement 2011, DM II status post bilateral carotid endarterectomy with subsequent right-sided restenosis, HTN, PAD, tobacco use presented to ER with complaints of increased lower extremity edema, progressive shortness of breath, weight gain. Had some adjustment oral diuretics without improvement. Acute diastolic heart failure H/O aortic valve replacement Acute hypoxic respiratory failure likely due to fluid overload +/-Pneumonia --CXR: Improved right lower lung aeration however persistent right basilar opacity, including a 3.5 cm nodular opacity. Pneumonia is favored. However, radiographic follow-up to exclude the possibility of an underlying mass is recommended. Decrease in size of a small right pleural effusion. 3. Cardiomegaly without evidence for pulmonary edema. --IV diuretics discontinued --Monitor volume status, electrolytes, renal function -Appreciate Cardiology Input -Weaned off of oxygen -Continue antibiotics for possible pneumonia -Blood cultures:negative to date -Lisinopril currently on hold due to relative low blood pressure -IV diuretics transitioned to PO (3) Cellulitis: Stasis Dermatitis B/L Lower extremity cellulitis Continue ceftriaxone, Doxycycline (4) UTI (urinary tract infection): Urine Cx: Pansensitive E. coli Received ceftriaxone (5) CAD (coronary artery disease): S/p CABG x2 Denies chest pain Continue aspirin, atorvastatin, metoprolol (6) Aortic stenosis: Status post aortic valve replacement in 2011 continue current meds (7) T2DM (type 2 diabetes mellitus): A1c: 13.9 on 05/03/2019 A1c is 8.5 Hold Tresiba NovoLog and Lantus sliding scale per protocol (8) Carotid artery disease: S/p bilateral carotid endarterectomy with restenosis right side (9) HTN (hypertension): Lisinopril on hold Monitor BP (10) Tobacco use: Smoking cessation encouraged DVT Px Lovenox SQ Code Status Full Code Disposition PT/OT prior to discharge Admission and Anticipated Discharge Date Admission Date: October 03, 2019 Subjective Patient is seen and examined at bedside Reports feeling weak, left leg pain Minimal dry cough Denies any chest pain, SOB, dizziness, nausea, abdominal pain Physical Exam Physical Exam: Physical Exam: Vitals signs as noted above General Appearance:Moderately built and nourished, no apparent distress Head: normocephalic, Atraumatic Eyes: normal inspection, EOMI, PERRL Neck: supple, Trachea midline Respiratory/Chest: Normal breath sounds, basal crackles, No accessory muscle use Cardiovascular: S1, S2, + murmur Abdomen/GI:Soft, Non tender, Bowel sounds present Extremities/Musculoskelatal:normal inspection, B/L LE edema, + leg wounds/erythema Neurologic/Psych:AAOX3, grossly no focal neurological deficits Skin: normal color, warm Results & Data Results & Data ([facility]) Vital Signs (Past 12 Hours) Vital Signs Temp Pulse Resp BP BP Pulse Ox 10/10/19 16:38 107/52 L 10/10/19 15:56 36.5 C 71 18 79/51 L 63/49 L 92 10/10/19 11:25 92/65 L 10/10/19 11:11 36.4 C L 61 17 84/56 L 92 10/10/19 08:00 102/60 10/10/19 07:33 36.4 C L 59 L 19 97/53 L 92 Laboratory Results [facility] 10/10/19 06:01 Sodium 133 L Potassium 3.7 Chloride 91 L Carbon Dioxide 35 H BUN 48 H Creatinine 1.20 Glucose 96 Calcium 8.8
[2019-10-10] MEDS: ENOXAPARIN INJ 40 MG/0.4 ML SYR SQ SCH (20:44)
[2019-10-10] MEDS: ASPIRIN 81 MG ECTAB PO SCH (20:44)
[2019-10-11 07:05] LABS: BUN Creatinine Ratio 40.5 (10-20); Calcium 9.1 mg/dl (8.5-10.1); Creatinine Clr Calc Pharmacy 36.9 ml/min; Est GFR (African American) 39.9; Est GFR (Non-African American) 34.4; Magnesium 2.1 mg/dl (1.8-2.4)
[2019-10-11] MEDS: ATORVASTATIN 40 MG TAB PO SCH (08:22)
[2019-10-11] MEDS: MULTIVITAMIN TAB PO SCH (08:22)
[2019-10-11] MEDS: FUROSEMIDE 40 MG TAB PO SCH (08:22)
[2019-10-11] MEDS: METOPROLOL TARTRATE 50 MG TAB PO SCH ×2 (08:23→21:20)
[2019-10-11] MEDS: DOXYCYCLINE HYCLATE 100 MG CAP PO SCH (08:23)
[2019-10-11] MEDS: MICONAZOLE NITRATE POWDER 43 GM EXT SCH ×2 (08:25→21:20)
[2019-10-11] MEDS: LATANOPROST 0.005% OP SOLN 2.5 ML BTL OPR SCH (08:26)
[2019-10-11] MEDS: INSULIN ASPART 100 UNITS/ML 3 ML PEN SC SCH ×4 (08:28→21:19)
[2019-10-11] MEDS: INSULIN GLARGINE SOLOSTAR 100 UNITS/ML 3 ML PEN SC SCH ×2 (08:28→21:17)
[2019-10-11] MEDS ORDERED: HEPARIN SOD 5,000 UNIT/0.5 ML VIAL SQ SCH (09:00)
--- NOTE | 2019-10-11 10:34 | Cardiology Progress Note ---
Date of Service October 11, 2019 Assessment & Plan (1) Acute diastolic (congestive) heart failure: (2) History of aortic valve replacement with bioprosthetic valve: (3) CAD (coronary artery disease): (4) Cellulitis: (5) History of carotid endarterectomy: (6) Bilateral carotid artery stenosis: (7) PAD (peripheral artery disease): (8) Diabetes mellitus with peripheral angiopathy: (9) UTI (urinary tract infection): (10) SIRS (systemic inflammatory response syndrome): I will decrease the patient's diuretic again today. I believe she is almost to dry weight. Patient's Dickson catheter can be discontinued. I would start discharge planning. Subjective No new complaints today. Patient is sitting comfortably in a chair. Review of Systems Review of Systems: All systems reviewed & are unremarkable except as noted in HPI & below Nothing additional to add. Physical Exam Physical Exam: General: no acute distress and stated age Head: normocephalic, no masses, lesions, tenderness or abnormalities Eyes: conjunctiva are pink and non-injected, sclera clear Neck: supple, no adenopathy, no bruits, normal jugular venous pulse, no hepatojugular reflux Chest: normal shape and normal respiratory effort Lungs: clear to auscultation and percussion Cardiac Exam: - regular rate & rhythm, no murmurs gallops or rubs - normal S1, normal S2 Pulses: 2(+) throughout Abdomen: abdomen soft, non-tender, no abnormal masses and no hepatosplenomegaly Musculoskeletal: no gait disturbance, no joint inflammation, no deforming arthritis Extremities: Improved edema and cellulitis of the lower extremities. Neuro: grossly normal exam Results & Data Vital Signs (Past 12 Hours) Vital Signs Temp Pulse Resp BP Pulse Ox 10/11/19 08:03 36.6 C 63 18 124/74 90 10/11/19 04:01 36.4 C L 62 16 91/61 L 91 10/10/19 23:57 36.5 C 62 20 115/74 91 Laboratory Results Laboratory Results - last 24 hr 10/10/19 10/10/19 10/10/19 11:32 16:30 20:17 Sodium Potassium Chloride Carbon Dioxide Anion Gap BUN Creatinine Est Cr Clr Drug Dosing Est GFR ( Amer) Est GFR (Non-Af Amer) BUN/Creatinine Ratio Glucose POC Glucose 205 H 147 H 170 H Calcium Magnesium 10/11/19 10/11/19 05:59 07:40 Sodium 133 L Potassium 4.0 Chloride 90 L Carbon Dioxide 34 H Anion Gap 9.0 BUN 59 H Creatinine 1.45 H Est Cr Clr Drug Dosing 36.9 Est GFR ( Amer) 39.9 Est GFR (Non-Af Amer) 34.4 BUN/Creatinine Ratio 40.5 H Glucose 112 H POC Glucose 108 H Calcium 9.1 Magnesium 2.1 Medications Administered Current Inpatient Medications Acetaminophen (Tylenol) 650 mg PO Q4H PRN PRN Reason: Pain or Fever Stop: 11/02/19 19:12 Last Admin: 10/08/19 07:49 Dose: 650 mg Documented by: Aspirin (Ecotrin Ectab) 81 mg PO QPM STACEY Stop: 11/02/19 20:59 Last Admin: 10/10/19 20:44 Dose: 81 mg Documented by: Atorvastatin Calcium (Lipitor) 40 mg PO DAILY STACEY Stop: 11/03/19 08:59 Last Admin: 10/11/19 08:22 Dose: 40 mg Documented by: Dextrose (Dextrose 50%) 25 - 50 ml IV UD PRN; Protocol PRN Reason: Hypoglycemia Protocol Stop: 11/02/19 19:12 Doxycycline Hyclate (Vibramycin) 100 mg PO BID STACEY; Protocol Stop: 10/11/19 20:59 Last Admin: 10/11/19 08:23 Dose: 100 mg Documented by: Fish Oil (Ellijay-3 (Purified Fish Oil)) 1 gm PO DAILY STACEY Stop: 11/03/19 08:59 Last Admin: 10/10/19 08:14 Dose: 1 gm Documented by: Furosemide (Lasix) 40 mg PO DAILY STACEY Stop: 11/11/19 08:59 Glucagon (Glucagen) 1 mg SQ UD PRN; Protocol PRN Reason: Hypoglycemia Protocol Stop: 11/02/19 19:12 Glucose (Dex4 Glucose) 4 - 8 tabs PO UD PRN; Protocol PRN Reason: Hypoglycemia Protocol Stop: 11/02/19 19:12 Glucose (Glucose 40%) 15 - 30 gm PO UD PRN; Protocol PRN Reason: Hypoglycemia Protocol Stop: 11/02/19 19:12 Heparin Sodium (Porcine) (Heparin Sodium (Porcine)) 5,000 units SQ Q12 STACEY Stop: 11/10/19 20:59 Insulin Aspart (Novolog Flexpen) 0 units SC ACHS STACEY Stop: 11/02/19 20:59 Last Admin: 10/11/19 08:28 Dose: 6 units Documented by: Insulin Glargine (Lantus Solostar Pen) 0 - 10 units SC BID STACEY Stop: 11/02/19 20:59 Last Admin: 10/11/19 08:28 Dose: Not Given Documented by: Latanoprost (Xalatan Oph) 1 drops OPR DAILY STACEY Stop: 11/03/19 08:59 Last Admin: 10/11/19 08:26 Dose: 1 drops Documented by: Lisinopril (Zestril) 10 mg PO DAILY STACEY Stop: 11/03/19 08:59 Last Admin: 10/08/19 09:55 Dose: Not Given Documented by: Metoprolol Tartrate (Lopressor) 50 mg PO BID REPLACED BY [facility] Stop: 11/02/19 20:59 Last Admin: 10/11/19 08:23 Dose: 50 mg Documented by: Miconazole Nitrate (Desenex) 1 appln EXT BID STACEY Stop: 11/03/19 20:59 Last Admin: 10/11/19 08:25 Dose: 1 appln Documented by: Miscellaneous (Carbohydrates For Hypoglycemia) 15 - 30 gm PO UD PRN PRN Reason: Hypoglycemia Protocol Stop: 11/02/19 19:12 Last Admin: 10/05/19 07:41 Dose: 15 gm Documented by: Multivitamins (Multivitamin Tab) 1 tab PO DAILY REPLACED BY [facility] Stop: 11/03/19 08:59 Last Admin: 10/11/19 08:22 Dose: 1 tab Documented by:
[2019-10-11] MEDS: OMEGA-3 (PURIFIED FISH OIL) 1 GM CAP PO SCH (12:27)
--- NOTE | 2019-10-11 19:24 | Hospitalist Progress Note ---
Date of Service October 11, 2019 Assessment & Plan (1) Acute diastolic (congestive) heart failure: (2) Fluid overload: Patient is a 79 yr female with H/O HTN, CAD s/p CABG x2, severe aortic stenosis status post aortic valve replacement 2011, DM II status post bilateral carotid endarterectomy with subsequent right-sided restenosis, HTN, PAD, tobacco use presented to ER with complaints of increased lower extremity edema, progressive shortness of breath, weight gain. Had some adjustment oral diuretics without improvement. Acute diastolic heart failure H/O aortic valve replacement Acute hypoxic respiratory failure likely due to fluid overload +/-Pneumonia --CXR: Improved right lower lung aeration however persistent right basilar opacity, including a 3.5 cm nodular opacity. Pneumonia is favored. However, radiographic follow-up to exclude the possibility of an underlying mass is recommended. Decrease in size of a small right pleural effusion. 3. Cardiomegaly without evidence for pulmonary edema. --IV diuretics discontinued --Monitor volume status, electrolytes, renal function -Appreciate Cardiology Input -Weaned off of oxygen -Continue antibiotics for possible pneumonia -Blood cultures:negative to date -Lasix decreased to 40mg daily -Monitor renal function -Continue metoprolol,lisinopril Acute Kidney Injury Secondary to diuretics Monitor renal function Avoid Nephrotoxics as able Cr:1.45 (3) Cellulitis: Stasis Dermatitis B/L Lower extremity cellulitis Received ceftriaxone, Doxycycliner (4) UTI (urinary tract infection): Urine Cx: Pansensitive E. coli Completed ceftriaxone therapy (5) CAD (coronary artery disease): S/p CABG x2 Denies chest pain Continue aspirin, atorvastatin, metoprolol (6) Aortic stenosis: Status post aortic valve replacement in 2011 continue current meds (7) T2DM (type 2 diabetes mellitus): A1c: 13.9 on 05/03/2019 A1c is 8.5 Hold Tresiba NovoLog and Lantus sliding scale per protocol (8) Carotid artery disease: S/p bilateral carotid endarterectomy with restenosis right side (9) HTN (hypertension): Continue Lisinopril, Metoprolol (10) Tobacco use: Smoking cessation encouraged DVT Px Heparin SQ Code Status Full Code Disposition Needs Rehab placement Admission and Anticipated Discharge Date Admission Date: October 03, 2019 Subjective Patient is seen and examined at bedside No significant leg pain today Cough continues to improve Creatinine slightly elevated today No other complaints Denies any chest pain, SOB, dizziness, nausea, abdominal pain Review of Systems Review of Systems: All systems reviewed & are unremarkable except as noted in HPI & below Physical Exam Physical Exam: Physical Exam: Vitals signs as noted above General Appearance:Moderately built and nourished, no apparent distress Head: normocephalic, Atraumatic Eyes: normal inspection, EOMI, PERRL Neck: supple, Trachea midline Respiratory/Chest: Normal breath sounds, CTA, No accessory muscle use Cardiovascular: S1, S2, + murmur Abdomen/GI:Soft, Non tender, Bowel sounds present Extremities/Musculoskelatal:normal inspection, B/L LE edema, + leg wounds, erythema improved Neurologic/Psych:AAOX3, grossly no focal neurological deficits Skin: normal color, warm Results & Data Results & Data ([facility]) Vital Signs (Past 12 Hours) Vital Signs Temp Pulse Resp BP Pulse Ox 10/11/19 18:55 36.5 C 57 L 18 111/77 97 10/11/19 15:31 36.3 C L 59 L 18 119/50 L 92 10/11/19 15:17 95 10/11/19 11:37 36.7 C 56 L 19 118/73 95 10/11/19 08:03 36.6 C 63 18 124/74 90 Laboratory Results [facility] 10/11/19 05:59 Sodium 133 L Potassium 4.0 Chloride 90 L Carbon Dioxide 34 H BUN 59 H Creatinine 1.45 H Glucose 112 H Calcium 9.1
[2019-10-11] MEDS: HEPARIN SOD 5,000 UNIT/0.5 ML VIAL SQ SCH (21:19)
[2019-10-11] MEDS: ASPIRIN 81 MG ECTAB PO SCH (21:20)
[2019-10-12 06:32] LABS: BUN Creatinine Ratio 40.1 (10-20); Creatinine Clr Calc Pharmacy 36.7 ml/min; Est GFR (African American) 38.9; Est GFR (Non-African American) 33.6; Potassium 3.9 mmol/L (3.5-5.1)
[2019-10-12] MEDS: MICONAZOLE NITRATE POWDER 43 GM EXT SCH ×2 (07:47→20:44)
[2019-10-12] MEDS: ATORVASTATIN 40 MG TAB PO SCH (07:47)
[2019-10-12] MEDS: FUROSEMIDE 40 MG TAB PO SCH ×2 (07:47→08:32)
[2019-10-12] MEDS: OMEGA-3 (PURIFIED FISH OIL) 1 GM CAP PO SCH (07:48)
[2019-10-12] MEDS: MULTIVITAMIN TAB PO SCH (07:48)
[2019-10-12] MEDS: LATANOPROST 0.005% OP SOLN 2.5 ML BTL OPR SCH (07:48)
[2019-10-12] MEDS: METOPROLOL TARTRATE 50 MG TAB PO SCH ×2 (07:51→20:42)
[2019-10-12] MEDS: HEPARIN SOD 5,000 UNIT/0.5 ML VIAL SQ SCH ×2 (08:49→20:41)
[2019-10-12] MEDS: INSULIN GLARGINE SOLOSTAR 100 UNITS/ML 3 ML PEN SC SCH ×2 (08:50→20:40)
[2019-10-12] MEDS: INSULIN ASPART 100 UNITS/ML 3 ML PEN SC SCH ×4 (08:50→20:40)
--- NOTE | 2019-10-12 16:53 | Cardiology Progress Note ---
Date of Service October 12, 2019 Assessment & Plan (1) Acute diastolic (congestive) heart failure: 79-year-old female, history of CABG x2 and bioprosthetic aortic valve replacement, performed [facility], Dr. Caceres, 2011, receiving#21 Trifecta aortic valve bioprosthesis. The patient established with Dr. Roper of our practice in 11/2018 having moved to the area from [facility] at that time.Clinic note documents weight of 185 pounds, 83.9 kg at that time. Acute cardiology outpatient visit, 10/03/2019: 231 pounds, 104 kg Current weight, 10/12/19 [facility] 99.8 Kg, built in bed scale The patient had been on furosemide 40 mg every 8 hours intravenously from 10/03 until 10/09 this hospital stay. She had since been transitioned to furosemide orally, and received 40 mg daily today. She still some degree of volume overload, and therefore recommend transitioning her back to low-dose IV furosemide. Tentative plan is for the patient to be transferred to rehab, next week pending bed availability, perhaps on Monday or Monday. The patient has comorbidities including chronic kidney disease, as a history of carotid stenosis with bilateral carotid endarterectomies, and 100% stenosis of the right internal carotid artery. I spoke with her daughter, Celia, who I know personally as she had previously worked in our outpatient cardiology /outpatient congestive heart failure clinic up until a few months ago. She had in part retired to allow more time to care for her mother at home which she knew was suffering from a decline physically, as well as from a cognitive standpoint with concerns of dementia. The patient's echocardiogram images obtained earlier this month at [facility], reviewed independently, with findings of severe right ventricular hypokinesis, moderate to severe pulmonary hypertension, normal LVEF, and severe prosthetic stenosis, peak velocity in excess of 4 m/s. Future considerations include valve in valve transcatheter aortic valve replacement because she certainly is on a good candidate for redo surgery, however this is not a straightforward process, due to her comorbidities of mild cognitive impairment, and the size of her baseline prosthesis is a 21 mm, the internal diameter of this particular make-up prosthesis, it might not be able to accommodate a valve and valve TAVR. We will have to touch base with the valve clinic providers have her seen for further assessment. Continue to hold the patient's lisinopril given renal insufficiency. We will fo llow-up her renal function tomorrow. DVT prophylaxis: Continue subcutaneous heparin 5000 units every 12. Updates provided to patient's daughter , by phone. Subjective CC: follow up , volume overload Subjective: Patient seen and examined. She is evaluated for the first time by the undersigned today. Her primary outpatient rough rice grader is Dr. Roper of our practice, Dr. Johnston and followed up earlier this hospital stay. She has no acute complaint. Dickson catheter is in place draining clear yellow urine. Mild lower extremity and pedal edema has trended toward improvement compared to admission, but she still has some degree of edema, especially pedal edema. Review of Systems Review of Systems: Comprehensive review of systems is limited due to cognitive impairment, some degree of dementia suspected. Physical Exam Physical Exam: Temp Pulse Resp BP Pulse Ox 36.7 C 90 21 114/76 91 10/12/19 15:41 10/12/19 15:41 10/12/19 15:41 10/12/19 15:41 10/12/19 15:41 Constitutional: no acute distress Chronically ill in appearance Respiratory: Decreased breath sounds in the bases Cardiovascular: Rate/Rhythm: regular rate Heart Sounds: + murmur (II/ systolic murmur) Extremities: + edema ( 1+ lower extremity) Gastrointestinal (Abdomen): Abdominal exam not performed as patient was sitting in chair. Neurologic: No focal deficits, but patient is a poor historian,. Results & Data Vital Signs (Past 12 Hours) Vital Signs Temp Pulse Resp BP Pulse Ox 10/12/19 15:41 36.7 C 90 21 114/76 91 10/12/19 11:00 36.5 C 64 20 96/62 L 97 10/12/19 07:00 36.7 C 58 L 20 89/59 L 93
[2019-10-12] MEDS: FUROSEMIDE 20 MG in SYRINGE 0 ML IV SCH (18:00)
--- NOTE | 2019-10-12 19:58 | Hospitalist Progress Note ---
Date of Service October 12, 2019 Assessment & Plan (1) Acute diastolic (congestive) heart failure: (2) Fluid overload: Patient is a 79 yr female with H/O HTN, CAD s/p CABG x2, severe aortic stenosis status post aortic valve replacement 2011, DM II status post bilateral carotid endarterectomy with subsequent right-sided restenosis, HTN, PAD, tobacco use presented to ER with complaints of increased lower extremity edema, progressive shortness of breath, weight gain. Had some adjustment oral diuretics without improvement. Acute diastolic heart failure H/O aortic valve replacement H/O moderate to severe pulmonary hypertension. Acute hypoxic respiratory failure likely due to fluid overload +/-Pneumonia --CXR: Improved right lower lung aeration however persistent right basilar opacity, including a 3.5 cm nodular opacity. Pneumonia is favored. However, radiographic follow-up to exclude the possibility of an underlying mass is recommended. Decrease in size of a small right pleural effusion. Cardiomegaly without evidence for pulmonary edema. -Appreciate Cardiology Input -Weaned off of oxygen -Continue antibiotics for possible pneumonia -Blood cultures:negative to date -Continue metoprolol -lisinopril held due to NYDIA -IV diuresis as per cardiology -Monitor volume status/Renal function and electrolytes Acute Kidney Injury Secondary to diuretics Monitor renal function Avoid Nephrotoxics as able Cr:1.48 (3) Cellulitis: Stasis Dermatitis B/L Lower extremity cellulitis Completed ceftriaxone, Doxycycline course (4) UTI (urinary tract infection): Urine Cx: Pansensitive E. 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 Denies chest pain Continue aspirin, atorvastatin, metoprolol (6) Aortic stenosis: Status post aortic valve replacement in 2011 continue current meds (7) T2DM (type 2 diabetes mellitus): A1c: 13.9 on 05/03/2019 A1c is 8.5 Hold Tresiba NovoLog and Lantus sliding scale per protocol (8) Carotid artery disease: S/p bilateral carotid endarterectomy with restenosis right side (9) HTN (hypertension): Continue Metoprolol Lisinopril held due to NYDIA (10) Tobacco use: Smoking cessation encouraged DVT Px Heparin SQ Code Status Full Code Disposition Needs Rehab placement Admission and Anticipated Discharge Date Admission Date: October 03, 2019 Subjective Patient is seen and examined at bedside Very drowsy this morning Leg pain improved Still have pedal edema Discussed with cardiology today Plan to be diuresed with IV diuretics while hospitalized Denies any chest pain, SOB, dizziness, nausea, abdominal pain Review of Systems Review of Systems: All systems reviewed & are unremarkable except as noted in HPI & below Physical Exam Physical Exam: Physical Exam: Vitals signs as noted above General Appearance:Moderately built and nourished, no apparent distress Head: normocephalic, Atraumatic Eyes: normal inspection, EOMI, PERRL Neck: supple, Trachea midline Respiratory/Chest: Normal breath sounds, CTA, No accessory muscle use Cardiovascular: S1, S2, + murmur Abdomen/GI:Soft, Non tender, Bowel sounds present Extremities/Musculoskelatal:normal inspection, B/L LE edema, + leg wounds, erythema improved Neurologic/Psych:AAOX3, grossly no focal neurological deficits Skin: normal color, warm Results & Data Results & Data ([facility]) Vital Signs (Past 12 Hours) Vital Signs Temp Pulse Resp BP Pulse Ox 10/12/19 15:41 36.7 C 90 21 114/76 91 10/12/19 11:00 36.5 C 64 20 96/62 L 97 Laboratory Results [facility] 10/12/19 05:39 Sodium 132 L Potassium 3.9 Chloride 89 L Carbon Dioxide 38 H BUN 59 H Creatinine 1.48 H Glucose 114 H Calcium 9.0
[2019-10-12] MEDS: ASPIRIN 81 MG ECTAB PO SCH (20:42)
[2019-10-13] MEDS: FUROSEMIDE 20 MG in SYRINGE 0 ML IV SCH (05:48)
[2019-10-13] MEDS ORDERED: ATROPINE SULFATE 0.1 MG/ML 10ML SYR IV STA (06:59)
[2019-10-13] MEDS ORDERED: ATROPINE SO4 1 MG/ML 1ML VIAL IV PRN (07:02)
--- NOTE | 2019-10-13 07:03 | Communication Note ---
Date of Service: October 13, 2019 Made aware by RN around 6:55 AM of patient bradycardia. Cardiac rate 30 to 40s. SBP 140s. Patient complaint of substernal pain. Patient noted to be pale as per RN. Patient nauseous and dry heaving as per RN. AP Symptomatic bradycardia PCU transfer Atropine now Pacer pads on EKG now Check a.m. labs and troponin Hold beta-wandy and diuretics Rx for now. Will relay to AM provider.
[2019-10-13] MEDS ORDERED: ATROPINE SO4 1 MG/ML 1ML VIAL ONE (07:06)
[2019-10-13 07:14] LABS: Basophils # (auto) 0.03 K/uL (0-0.2); Basophils % (auto) 0.4 %; Eosinophils # (auto) 0.29 K/uL (0-0.5); Eosinophils % (auto) 4.2 %; Hematocrit (blood only) 38.6 % (37-47); Hemoglobin 12.3 g/dL (12.0-16.0); Immature Granulocytes # (auto) 0.01 K/uL (0.00-0.02); Immature Granulocytes % (auto) 0.1 %; Lymphocytes # (auto) 1.78 K/uL (1.2-3.4); Mean Corpuscular Hemoglobin 26.5 pg (25-34); Mean Corpuscular Hgb Conc 31.9 g/dL (32-36); Mean Corpuscular Volume 83.2 fL (80-100); Mean Platelet Volume 10.1 fL (7.4-10.4); Monocytes # (auto) 0.66 K/uL (0.11-0.59); Monocytes % (auto) 9.6 %; Neutrophils # (auto) 4.07 K/uL (1.4-6.5); Neutrophils % (auto) 59.7 %; Platelet Count 233 K/uL (130-400); RDW Coefficient of Variation 17.7 % (11.5-14.5); RDW Standard Deviation 53.9 fL (36.4-46.3); Red Blood Count 4.64 M/uL (4.2-5.4); White Blood Count 6.84 K/uL (4.8-10.8)
[2019-10-13 07:30] LABS: Partial Thromboplastin Time 26.9 Seconds (21.0-31.0)
[2019-10-13 07:39] LABS: BUN Creatinine Ratio 42.4 (10-20); Calcium 9.3 mg/dl (8.5-10.1); Creatinine Clr Calc Pharmacy 36.1 ml/min; Est GFR (Non-African American) 32.8; Magnesium 2.3 mg/dl (1.8-2.4); Potassium 3.9 mmol/L (3.5-5.1)
[2019-10-13] MEDS: INSULIN ASPART 100 UNITS/ML 3 ML PEN SC SCH ×4 (08:15→21:15)
--- NOTE | 2019-10-13 09:17 | Cardiology Progress Note ---
Date of Service October 13, 2019 Assessment & Plan (1) Acute diastolic (congestive) heart failure: Severe bioprosthetic AV stenosis NSTEMI this am , demand ischemia in setting of transient sinus bradycardia, with RV dysfunction and severe on recent echo Dementia EKG, SR , T wave inversions in I and aVL unchanged compared to 08/2019. Plan: IV furosemide may have decreased her preload too much. Hold lasix. Hold metoprolol. Heparin infusion for now, although, doubt this is due to intracoronary plaque rupture. Continue ASA. Updated daughter on phone. Making arrangements for an in person visit Subjective Patient had a transient episode of sinus bradycardia in the 40s at 7 am with associated chest pain. Received IV atropine x1 with resolution. Transferred to [facility] as PCU overflow. HR in 60s now. Pt feels back to baseline. Eating pancakes. Physical Exam Physical Exam: Temp Pulse Resp BP Pulse Ox 36.4 C L 42 L 24 140/65 94 10/13/19 03:00 10/13/19 07:01 10/13/19 07:01 10/13/19 07:01 10/13/19 07:01 Constitutional: chronically ill in appearance, no acute distress Respiratory: normal respiratory effort, lungs clear to auscultation Cardiovascular: Rate/Rhythm: regular rate Heart Sounds: + murmur (2/6 SM heard best at R sternal border) Vessels: + JVD Extremities: + edema (1+ pedal , LE edema) Results & Data Vital Signs (Past 12 Hours) Vital Signs Temp Pulse Pulse Resp BP BP Pulse Ox 10/13/19 07:01 42 L 24 140/65 94 10/13/19 05:10 113/60 10/13/19 03:00 36.4 C L 101 H 20 125/57 L 93 10/12/19 23:27 59 L 10/12/19 23:00 36.5 C 62 20 117/70 93 Laboratory Results Cardiac Enzymes 10/13/19 Range/Units 06:52 Troponin I 1.950 H* (0-0.045) ng/ml Coagulation 10/13/19 Range/Units 06:52 APTT 26.9 (21.0-31.0) Seconds CBC 10/13/19 Range/Units 06:52 WBC 6.84 (4.8-10.8) K/uL RBC 4.64 (4.2-5.4) M/uL Hgb 12.3 (12.0-16.0) g/dL Hct 38.6 (37-47) % Plt Count 233 (130-400) K/uL Neut # (Auto) 4.07 (1.4-6.5) K/uL Lymph # (Auto) 1.78 (1.2-3.4) K/uL Mifflin # (Auto) 0.66 H (0.11-0.59) K/uL Eos # (Auto) 0.29 (0-0.5) K/uL Baso # (Auto) 0.03 (0-0.2) K/uL Comprehensive Metabolic Panel 10/13/19 Range/Units 06:52 Sodium 133 L (136-145) mmol/L Potassium 3.9 (3.5-5.1) mmol/L Chloride 92 L (98-107) mmol/L Carbon Dioxide 35 H (21-32) mmol/L BUN 64 H (7-18) mg/dl Creatinine 1.51 H (0.6-1.2) mg/dl Glucose 88 (70-99) mg/dl Calcium 9.3 (8.5-10.1) mg/dl Intake and Output 10/12/19 10/13/19 10/13/19 22:59 06:59 14:59 Intake Total 120 / 370 250 / 370 Output Total 400 / 1050 350 / 1050 Balance -280 / -680 -100 / -680 Intake: Oral 120 / 370 250 / 370 Output: Urine Amount (Catheter) 400 / 1050 350 / 1050 Dickson/Indwelling 400 / 1050 350 / 1050 Other: Weight 100.6 kg :
[2019-10-13] MEDS: ATORVASTATIN 40 MG TAB PO SCH (10:11)
[2019-10-13] MEDS: MICONAZOLE NITRATE POWDER 43 GM EXT SCH ×2 (10:11→21:13)
[2019-10-13] MEDS: INSULIN GLARGINE SOLOSTAR 100 UNITS/ML 3 ML PEN SC SCH ×2 (10:11→21:14)
[2019-10-13] MEDS: OMEGA-3 (PURIFIED FISH OIL) 1 GM CAP PO SCH (10:12)
[2019-10-13] MEDS: MULTIVITAMIN TAB PO SCH (10:12)
[2019-10-13] MEDS: LATANOPROST 0.005% OP SOLN 2.5 ML BTL OPR SCH (10:12)
[2019-10-13] MEDS ORDERED: HEPARIN 25000 UNIT/500 ML D5W IV ONE (10:14)
[2019-10-13] MEDS: HEPARIN SODIUM/DEXTROSE 25,000 UNITS/500 ML BAG IV SCH (10:15)
[2019-10-13] MEDS: Heparin IV Standard *NO* Bolus IV SCH ×2 (10:26→13:35)
[2019-10-13 17:02] LABS: Partial Thromboplastin Ratio 4.6
--- NOTE | 2019-10-13 18:07 | Hospitalist Progress Note ---
Date of Service October 13, 2019 Assessment & Plan (1) Acute diastolic (congestive) heart failure: (2) Fluid overload: Patient is a 79 yr female with H/O HTN, CAD s/p CABG x2, severe aortic stenosis status post aortic valve replacement 2011, DM II status post bilateral carotid endarterectomy with subsequent right-sided restenosis, HTN, PAD, tobacco use presented to ER with complaints of increased lower extremity edema, progressive shortness of breath, weight gain. Had some adjustment oral diuretics without improvement. Acute diastolic heart failure H/O aortic valve replacement H/O moderate to severe pulmonary hypertension. Acute hypoxic respiratory failure likely due to fluid overload +/-Pneumonia --CXR: Improved right lower lung aeration however persistent right basilar opacity, including a 3.5 cm nodular opacity. Pneumonia is favored. However, radiographic follow-up to exclude the possibility of an underlying mass is recommended. Decrease in size of a small right pleural effusion. Cardiomegaly without evidence for pulmonary edema. -Appreciate Cardiology Input -Weaned off of oxygen -Continue antibiotics for possible pneumonia -Blood cultures:negative to date -Continue metoprolol -lisinopril held due to NYDIA -Monitor volume status/Renal function and electrolytes -Diuretics on hold Possible NSTEMI Demand Ischemia Sinus bradycardia resolved Hold metoprolol for now Continue IV heparin for now Troponin trended Continue aspirin Hold diuretics for now Acute Kidney Injury Secondary to diuretics Monitor renal function Avoid Nephrotoxics as able Cr:1.5 (3) Cellulitis: Stasis Dermatitis B/L Lower extremity cellulitis Completed ceftriaxone, Doxycycline course (4) UTI (urinary tract infection): Urine Cx: Pansensitive E. 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 Denies chest pain Continue aspirin, atorvastatin, metoprolol (6) Aortic stenosis: Status post aortic valve replacement in 2011 continue current meds (7) T2DM (type 2 diabetes mellitus): A1c: 13.9 on 05/03/2019 A1c is 8.5 Hold Tresiba NovoLog and Lantus sliding scale per protocol Hyperglycemia noted, likely due to heparin drip (8) Carotid artery disease: S/p bilateral carotid endarterectomy with restenosis right side (9) HTN (hypertension): Metoprolol held due to Bradycardia Lisinopril held due to NYDIA (10) Tobacco use: Smoking cessation encouraged DVT Px on IV Heparin Code Status Full Code Disposition Needs Rehab placement Admission and Anticipated Discharge Date Admission Date: October 03, 2019 Subjective Patient is seen and examined at bedside Patient was bradycardic, pale, nauseous this morning which later resolved She complained of right-sided chest pain which currently resolved Started on IV heparin given concern for NSTEMI Currently denies any chest pain, shortness of breath, dizziness, nausea, abdominal pain Discussed with patient's daughter and Cardiology in detail Review of Systems Review of Systems: All systems reviewed & are unremarkable except as noted in HPI & below Physical Exam Physical Exam: Physical Exam: Vitals signs as noted above General Appearance:Moderately built and nourished, no apparent distress Head: normocephalic, Atraumatic Eyes: normal inspection, EOMI, PERRL Neck: supple, Trachea midline Respiratory/Chest: Normal breath sounds, CTA, No accessory muscle use Cardiovascular: S1, S2, + murmur Abdomen/GI:Soft, Non tender, Bowel sounds present Extremities/Musculoskelatal:normal inspection, B/L LE edema, + leg wounds, erythema improved Neurologic/Psych:AAOX3, grossly no focal neurological deficits Skin: normal color, warm Results & Data Results & Data ([facility]) Vital Signs (Past 12 Hours) Vital Signs Temp Pulse Pulse Resp BP BP Pulse Ox 10/13/19 15:00 65 19 92 10/13/19 14:40 66 20 111/72 94 10/13/19 14:00 67 24 92 10/13/19 13:40 65 25 H 102/58 L 87 L 10/13/19 13:00 65 14 91 10/13/19 12:40 65 16 122/65 94 10/13/19 12:00 37 C 65 19 94 10/13/19 11:40 67 23 117/44 L 95 10/13/19 11:00 65 20 95 10/13/19 10:40 62 21 117/62 90 10/13/19 10:00 60 19 10/13/19 09:40 59 L 19 86/62 L 10/13/19 09:00 58 L 15 92 10/13/19 08:40 58 L 21 91/54 L 93 10/13/19 08:25 36.8 C 58 L 15 97 10/13/19 07:01 42 L 24 140/65 94 Laboratory Results Short CBC 10/13/19 Range/Units 06:52 WBC 6.84 (4.8-10.8) K/uL Hgb 12.3 (12.0-16.0) g/dL Hct 38.6 (37-47) % Plt Count 233 (130-400) K/uL BMP 10/13/19 06:52 Sodium 133 L Potassium 3.9 Chloride 92 L Carbon Dioxide 35 H BUN 64 H Creatinine 1.51 H Glucose 88 Calcium 9.3 Cardiac Enzymes 10/13/19 10/13/19 Range/Units 06:52 11:57 Troponin I 1.950 H* 1.170 H* (0-0.045) ng/ml
[2019-10-13] MEDS: ASPIRIN 81 MG ECTAB PO SCH (21:13)
[2019-10-14] LABS: Partial Thromboplastin Ratio > 5.0
[2019-10-14 00:08] LABS: Partial Thromboplastin Time > 139.0 Seconds (21.0-31.0)
[2019-10-14 01:45] LABS: Partial Thromboplastin Ratio 3.8
[2019-10-14 01:51] LABS: Partial Thromboplastin Time 105.5 Seconds (21.0-31.0)
[2019-10-14 02:53] LABS: Hematocrit (blood only) 37.7 % (37-47); Hemoglobin 11.9 g/dL (12.0-16.0); Mean Corpuscular Hgb Conc 31.6 g/dL (32-36); Mean Corpuscular Volume 82.3 fL (80-100); Mean Platelet Volume 9.6 fL (7.4-10.4); Platelet Count 213 K/uL (130-400); RDW Coefficient of Variation 17.5 % (11.5-14.5); RDW Standard Deviation 52.7 fL (36.4-46.3); Red Blood Count 4.58 M/uL (4.2-5.4); White Blood Count 5.94 K/uL (4.8-10.8)
[2019-10-14 03:13] LABS: Partial Thromboplastin Ratio 2.3
[2019-10-14 03:16] LABS: BUN Creatinine Ratio 40.4 (10-20); Calcium 8.7 mg/dl (8.5-10.1); Creatinine Clr Calc Pharmacy 37.3 ml/min; Est GFR (African American) 39.5; Est GFR (Non-African American) 34.1; Magnesium 2.1 mg/dl (1.8-2.4); Potassium 3.9 mmol/L (3.5-5.1)
[2019-10-14 03:18] LABS: Partial Thromboplastin Time 63.2 Seconds (21.0-31.0)
[2019-10-14] MEDS: INSULIN ASPART 100 UNITS/ML 3 ML PEN SC SCH ×4 (07:58→21:21)
[2019-10-14] MEDS: MULTIVITAMIN TAB PO SCH (07:59)
[2019-10-14] MEDS: OMEGA-3 (PURIFIED FISH OIL) 1 GM CAP PO SCH (07:59)
[2019-10-14] MEDS: INSULIN GLARGINE SOLOSTAR 100 UNITS/ML 3 ML PEN SC SCH ×2 (07:59→21:21)
[2019-10-14] MEDS: LATANOPROST 0.005% OP SOLN 2.5 ML BTL OPR SCH (08:00)
[2019-10-14] MEDS: ATORVASTATIN 40 MG TAB PO SCH (08:00)
[2019-10-14] MEDS: MICONAZOLE NITRATE POWDER 43 GM EXT SCH ×2 (08:00→21:22)
--- NOTE | 2019-10-14 09:06 | Cardiology Progress Note ---
Date of Service October 14, 2019 Assessment & Plan (1) SIRS (systemic inflammatory response syndrome): (2) UTI (urinary tract infection): (3) Acute diastolic (congestive) heart failure: (4) Volume overload: (5) History of aortic valve replacement with bioprosthetic valve: (6) Aortic stenosis: (7) History of coronary artery bypass graft x 2: (8) T2DM (type 2 diabetes mellitus): The patient looks good today. Creatinine has stabilized. Edema continues to improve of her lower extremities. She still has open wounds on her legs which are of concern. Going to consult wound care to evaluate and provide treatment. Subjective Patient has no new complaints today. Review of Systems Review of Systems: All systems reviewed & are unremarkable except as noted in HPI & below Nothing additional to add Physical Exam Physical Exam: General: no acute distress and stated age Head: normocephalic, no masses, lesions, tenderness or abnormalities Eyes: conjunctiva are pink and non-injected, sclera clear Neck: supple, no adenopathy, no bruits, normal jugular venous pulse, no hepatojugular reflux Chest: normal shape and normal respiratory effort Lungs: clear to auscultation and percussion Cardiac Exam: - regular rate & rhythm, no murmurs gallops or rubs - normal S1, normal S2 Pulses: 2(+) throughout Abdomen: abdomen soft, non-tender, no abnormal masses and no hepatosplenomegaly Musculoskeletal: no gait disturbance, no joint inflammation, no deforming arthritis Extremities: Edema is improved. The patient has open wounds on both her lower extremities Neuro: grossly normal exam Results & Data Vital Signs (Past 12 Hours) Vital Signs Temp Pulse Resp BP Pulse Ox 10/14/19 06:00 59 L 14 10/14/19 05:40 56 L 23 103/50 L 10/14/19 05:10 68 22 93 10/14/19 04:40 57 L 19 158/75 H 10/14/19 04:00 36.3 C L 58 L 25 H 10/14/19 03:40 63 20 148/66 H 10/14/19 03:00 58 L 18 10/14/19 02:40 60 19 139/58 L 10/14/19 02:17 57 L 19 139/69 10/14/19 02:00 58 L 18 10/14/19 01:40 60 19 144/122 H 10/14/19 01:00 59 L 18 92 10/14/19 00:41 61 19 120/67 96 10/14/19 00:00 36.5 C 61 21 10/13/19 23:40 59 L 20 146/75 H 95 10/13/19 23:00 67 18 10/13/19 22:40 63 21 141/68 H 88 L 10/13/19 22:00 63 21 99 10/13/19 21:40 64 18 159/132 H 97 Laboratory Results Laboratory Results - last 24 hr 10/13/19 10/13/19 10/13/19 11:25 11:27 11:28 WBC RBC Hgb Hct MCV MCH MCHC RDW Std Deviation RDW Coeff of Erin Plt Count MPV APTT PTT Ratio Sodium Potassium Chloride Carbon Dioxide Anion Gap BUN Creatinine Est Cr Clr Drug Dosing Est GFR ( Amer) Est GFR (Non-Af Amer) BUN/Creatinine Ratio Glucose POC Glucose 270 H 179 H 196 H Calcium Magnesium Troponin I 10/13/19 10/13/19 10/13/19 11:57 16:14 16:15 WBC RBC Hgb Hct MCV MCH MCHC RDW Std Deviation RDW Coeff of Erin Plt Count MPV APTT PTT Ratio Sodium Potassium Chloride Carbon Dioxide Anion Gap BUN Creatinine Est Cr Clr Drug Dosing Est GFR ( Amer) Est GFR (Non-Af Amer) BUN/Creatinine Ratio Glucose POC Glucose 332 H* 296 H Calcium Magnesium Troponin I 1.170 H* 10/13/19 10/13/19 10/13/19 16:32 18:22 20:26 WBC RBC Hgb Hct MCV MCH MCHC RDW Std Deviation RDW Coeff of Erin Plt Count MPV APTT 128.0 H* PTT Ratio 4.6 Sodium Potassium Chloride Carbon Dioxide Anion Gap BUN Creatinine Est Cr Clr Drug Dosing Est GFR ( Amer) Est GFR (Non-Af Amer) BUN/Creatinine Ratio Glucose POC Glucose 256 H Calcium Magnesium Troponin I 1.230 H* 10/13/19 10/14/19 10/14/19 23:21 01:17 02:44 WBC 5.94 RBC 4.58 Hgb 11.9 L Hct 37.7 MCV 82.3 MCH 26.0 MCHC 31.6 L RDW Std Deviation 52.7 H RDW Coeff of Erin 17.5 H Plt Count 213 MPV 9.6 APTT > 139.0 H* 105.5 H* PTT Ratio > 5.0 3.8 Sodium Potassium Chloride Carbon Dioxide Anion Gap BUN Creatinine Est Cr Clr Drug Dosing Est GFR ( Amer) Est GFR (Non-Af Amer) BUN/Creatinine Ratio Glucose POC Glucose Calcium Magnesium Troponin I 10/14/19 10/14/19 10/14/19 02:44 02:44 07:34 WBC RBC Hgb Hct MCV MCH MCHC RDW Std Deviation RDW Coeff of Erin Plt Count MPV APTT 63.2 H* PTT Ratio 2.3 Sodium 133 L Potassium 3.9 Chloride 95 L Carbon Dioxide 36 H Anion Gap 2.0 L BUN 59 H Creatinine 1.46 H Est Cr Clr Drug Dosing 37.3 Est GFR ( Amer) 39.5 Est GFR (Non-Af Amer) 34.1 BUN/Creatinine Ratio 40.4 H Glucose 114 H POC Glucose 111 H Calcium 8.7 Magnesium 2.1 Troponin I 10/14/19 08:44 WBC RBC Hgb Hct MCV MCH MCHC RDW Std Deviation RDW Coeff of Erin Plt Count MPV APTT Pending PTT Ratio Pending Sodium Potassium Chloride Carbon Dioxide Anion Gap BUN Creatinine Est Cr Clr Drug Dosing Est GFR ( Amer) Est GFR (Non-Af Amer) BUN/Creatinine Ratio Glucose POC Glucose Calcium Magnesium Troponin I Medications Administered Current Inpatient Medications Acetaminophen (Tylenol) 650 mg PO Q4H PRN PRN Reason: Pain or Fever Stop: 11/02/19 19:12 Last Admin: 10/08/19 07:49 Dose: 650 mg Documented by: Aspirin (Ecotrin Ectab) 81 mg PO QPM [facility] Stop: 11/02/19 20:59 Last Admin: 10/13/19 21:13 Dose: 81 mg Documented by: Atorvastatin Calcium (Lipitor) 40 mg PO DAILY [facility] Stop: 11/03/19 08:59 Last Admin: 10/14/19 08:00 Dose: 40 mg Documented by: Atropine Sulfate (Atropine Sulfate 1mg/Ml) 0.5 mg IV Q3M PRN PRN Reason: symptomatic bradycardia Stop: 11/12/19 07:01 Last Admin: 10/13/19 07:10 Dose: 0.5 mg Documented by: Dextrose (Dextrose 50%) 25 - 50 ml IV UD PRN; Protocol PRN Reason: Hypoglycemia Protocol Stop: 11/02/19 19:12 Fish Oil ([place]-3 (Purified Fish Oil)) 1 gm PO DAILY STACEY Stop: 11/03/19 08:59 Last Admin: 10/14/19 07:59 Dose: 1 gm Documented by: Glucagon (Glucagen) 1 mg SQ UD PRN; Protocol PRN Reason: Hypoglycemia Protocol Stop: 11/02/19 19:12 Glucose (Dex4 Glucose) 4 - 8 tabs PO UD PRN; Protocol PRN Reason: Hypoglycemia Protocol Stop: 11/02/19 19:12 Glucose (Glucose 40%) 15 - 30 gm PO UD PRN; Protocol PRN Reason: Hypoglycemia Protocol Stop: 11/02/19 19:12 Heparin Sodium/Dextrose (Heparin Sodium/Dextrose) 25,000 units in 500 mls @ 19 mls/hr IV .Q24H STACEY; Protocol Stop: 11/12/19 10:14 Last Titration: 10/14/19 07:08 Dose: 950 units/hr, 19 mls/hr Documented by: Insulin Aspart (Novolog Flexpen) 0 units SC ACHS STACEY Stop: 11/02/19 20:59 Last Admin: 10/14/19 07:58 Dose: 7 units Documented by: Insulin Glargine (Lantus Solostar Pen) 0 - 10 units SC BID STACEY Stop: 11/02/19 20:59 Last Admin: 10/14/19 07:59 Dose: 5 units Documented by: Latanoprost (Xalatan Oph) 1 drops OPR DAILY STACEY Stop: 11/03/19 08:59 Last Admin: 10/14/19 08:00 Dose: 1 drops Documented by: Lisinopril (Zestril) 10 mg PO DAILY STACEY Stop: 11/03/19 08:59 Last Admin: 10/08/19 09:55 Dose: Not Given Documented by: Miconazole Nitrate (Desenex) 1 appln EXT BID STACEY Stop: 11/03/19 20:59 Last Admin: 10/14/19 08:00 Dose: 1 appln Documented by: Miscellaneous (Carbohydrates For Hypoglycemia) 15 - 30 gm PO UD PRN PRN Reason: Hypoglycemia Protocol Stop: 11/02/19 19:12 Last Admin: 10/05/19 07:41 Dose: 15 gm Documented by: Multivitamins (Multivitamin Tab) 1 tab PO DAILY STACEY Stop: 11/03/19 08:59 Last Admin: 10/14/19 07:59 Dose: 1 tab Documented by: (1) Volume overload Hypervolemia type: unspecified Qualified Code(s): E87.70 - Fluid overload, unspecified
[2019-10-14 09:15] LABS: Partial Thromboplastin Ratio 3.4
[2019-10-14 09:19] LABS: Partial Thromboplastin Time 95.1 Seconds (21.0-31.0)
--- NOTE | 2019-10-14 09:47 | Electrocardiogram Report ---
Test Reason : Blood Pressure : / mmHG Vent. Rate : 047 BPM Atrial Rate : 047 BPM P-R Int : 180 ms QRS Dur : 118 ms QT Int : 524 ms P-R-T Axes : 067 -43 149 degrees QTc Int : 463 ms Sinus bradycardia Left axis deviation Left ventricular hypertrophy with QRS widening and secondary ST/T changes Cannot rule out Septal infarct (cited on or before 03-OCT-2019) Abnormal ECG When compared with ECG of 03-OCT-2019 15:13, No significant change was found Confirmed by Manjeet Saul ([id number]) on 10/14/2019 9:46:37 AM Referred By: REFERRED SELF Confirmed By:Manjeet Saul
--- NOTE | 2019-10-14 15:50 | Hospitalist Progress Note ---
Date of Service October 14, 2019 Assessment & Plan (1) Acute diastolic (congestive) heart failure: (2) Fluid overload: Patient is a 79 yr female with H/O HTN, CAD s/p CABG x2, severe aortic stenosis status post aortic valve replacement 2011, DM II status post bilateral carotid endarterectomy with subsequent right-sided restenosis, HTN, PAD, tobacco use presented to ER with complaints of increased lower extremity edema, progressive shortness of breath, weight gain. Had some adjustment oral diuretics without improvement. Acute diastolic heart failure H/O aortic valve replacement H/O moderate to severe pulmonary hypertension. Acute hypoxic respiratory failure likely due to fluid overload +/-Pneumonia --CXR: Improved right lower lung aeration however persistent right basilar opacity, including a 3.5 cm nodular opacity. Pneumonia is favored. However, radiographic follow-up to exclude the possibility of an underlying mass is recommended. Decrease in size of a small right pleural effusion. Cardiomegaly without evidence for pulmonary edema. -Appreciate Cardiology Input -Weaned off of oxygen -Completed antibiotics for possible pneumonia -Blood cultures:negative -lisinopril held due to NYDIA -Monitor volume status/Renal function and electrolytes -Diuretics on hold -Metoprolol held due to bradycardia Possible NSTEMI Demand Ischemia Sinus bradycardia resolved Hold metoprolol for now Continue IV heparin Troponin trended Continue aspirin Hold diuretics for now Acute Kidney Injury Secondary to diuretics Monitor renal function Avoid Nephrotoxics as able Cr:1.5>>1.4 (3) Cellulitis: Stasis Dermatitis B/L Lower extremity cellulitis Completed ceftriaxone, Doxycycline course Wound Care consulted (4) UTI (urinary tract infection): Urine Cx: Pansensitive E. 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 Denies chest pain Continue aspirin, atorvastatin, metoprolol (6) Aortic stenosis: Status post aortic valve replacement in 2011 continue current meds (7) T2DM (type 2 diabetes mellitus): A1c: 13.9 on 05/03/2019 A1c is 8.5 Hold Tresiba NovoLog and Lantus sliding scale per protocol Hyperglycemia noted, likely due to heparin drip (8) Carotid artery disease: S/p bilateral carotid endarterectomy with restenosis right side (9) HTN (hypertension): Metoprolol held due to Bradycardia Lisinopril held due to NYDIA (10) Tobacco use: Smoking cessation encouraged DVT Px on IV Heparin Code Status Full Code Disposition Needs Rehab placement Admission and Anticipated Discharge Date Admission Date: October 03, 2019 Subjective Patient is seen and examined at bedside States feeling better today Reports mild leaking of leg wounds Discussed with cardiology today Denies any chest pain, shortness of breath, dizziness, nausea, abdominal pain Review of Systems Review of Systems: All systems reviewed & are unremarkable except as noted in HPI & below Physical Exam Physical Exam: Physical Exam: Vitals signs as noted above General Appearance:Moderately built and nourished, no apparent distress Head: normocephalic, Atraumatic Eyes: normal inspection, EOMI, PERRL Neck: supple, Trachea midline Respiratory/Chest: Normal breath sounds, CTA, No accessory muscle use Cardiovascular: S1, S2, + murmur Abdomen/GI:Soft, Non tender, Bowel sounds present Extremities/Musculoskelatal:normal inspection, B/L LE edema, + leg wounds, erythema improved Neurologic/Psych:AAOX3, grossly no focal neurological deficits Skin: normal color, warm Results & Data Results & Data ([facility]) Vital Signs (Past 12 Hours) Vital Signs Temp Pulse Resp BP Pulse Ox 10/14/19 11:41 36.8 C 75 22 108/76 10/14/19 07:41 36.8 C 70 16 122/41 L 10/14/19 06:00 59 L 14 10/14/19 05:40 56 L 23 103/50 L 10/14/19 05:10 68 22 93 10/14/19 04:40 57 L 19 158/75 H 10/14/19 04:00 36.3 C L 58 L 25 H Laboratory Results Short CBC 10/14/19 Range/Units 02:44 WBC 5.94 (4.8-10.8) K/uL Hgb 11.9 L (12.0-16.0) g/dL Hct 37.7 (37-47) % Plt Count 213 (130-400) K/uL BMP 10/14/19 02:44 Sodium 133 L Potassium 3.9 Chloride 95 L Carbon Dioxide 36 H BUN 59 H Creatinine 1.46 H Glucose 114 H Calcium 8.7 Cardiac Enzymes 10/13/19 Range/Units 18:22 Troponin I 1.230 H* (0-0.045) ng/ml
[2019-10-14 16:59] LABS: Partial Thromboplastin Ratio 1.8
[2019-10-14] MEDS: HEPARIN SODIUM/DEXTROSE 25,000 UNITS/500 ML BAG IV SCH (17:11)
[2019-10-14 17:12] LABS: Partial Thromboplastin Time 50.7 Seconds (21.0-31.0)
[2019-10-14] MEDS: ASPIRIN 81 MG ECTAB PO SCH (21:21)
[2019-10-15 07:14] LABS: Partial Thromboplastin Ratio 2.6
[2019-10-15 07:19] LABS: BUN Creatinine Ratio 45.4 (10-20); Creatinine Clr Calc Pharmacy 50.3 ml/min; Est GFR (African American) 56.9; Est GFR (Non-African American) 49.1; Potassium 3.5 mmol/L (3.5-5.1)
[2019-10-15 07:36] LABS: Partial Thromboplastin Time 71.8 Seconds (21.0-31.0)
[2019-10-15] MEDS: HEPARIN SODIUM/DEXTROSE 25,000 UNITS/500 ML BAG IV SCH (07:59)
[2019-10-15] MEDS: INSULIN ASPART 100 UNITS/ML 3 ML PEN SC SCH ×4 (08:00→20:41)
[2019-10-15] MEDS: ATORVASTATIN 40 MG TAB PO SCH (08:01)
[2019-10-15] MEDS: MICONAZOLE NITRATE POWDER 43 GM EXT SCH ×2 (08:01→20:20)
[2019-10-15] MEDS: INSULIN GLARGINE SOLOSTAR 100 UNITS/ML 3 ML PEN SC SCH ×2 (08:01→20:41)
[2019-10-15] MEDS: LATANOPROST 0.005% OP SOLN 2.5 ML BTL OPR SCH (08:02)
[2019-10-15] MEDS: OMEGA-3 (PURIFIED FISH OIL) 1 GM CAP PO SCH (08:02)
[2019-10-15] MEDS: MULTIVITAMIN TAB PO SCH (08:02)
[2019-10-15] MEDS ORDERED: POTASSIUM CHLORIDE 20 MEQ TABCR PO ONE (09:41)
[2019-10-15 13:54] LABS: Partial Thromboplastin Ratio 2.1
[2019-10-15 13:55] LABS: Partial Thromboplastin Time 58.2 Seconds (21.0-31.0)
--- NOTE | 2019-10-15 17:51 | Hospitalist Progress Note ---
Date of Service October 15, 2019 Assessment & Plan (1) Acute diastolic (congestive) heart failure: (2) Fluid overload: Patient is a 79 yr female with H/O HTN, CAD s/p CABG x2, severe aortic stenosis status post aortic valve replacement 2011, DM II status post bilateral carotid endarterectomy with subsequent right-sided restenosis, HTN, PAD, tobacco use presented to ER with complaints of increased lower extremity edema, progressive shortness of breath, weight gain. Had some adjustment oral diuretics without improvement. Acute diastolic heart failure H/O aortic valve replacement H/O moderate to severe pulmonary hypertension. Acute hypoxic respiratory failure likely due to fluid overload +/-Pneumonia --CXR: Improved right lower lung aeration however persistent right basilar opacity, including a 3.5 cm nodular opacity. Pneumonia is favored. However, radiographic follow-up to exclude the possibility of an underlying mass is recommended. Decrease in size of a small right pleural effusion. Cardiomegaly without evidence for pulmonary edema. -Appreciate Cardiology Input -Weaned off of oxygen -Completed antibiotics for possible pneumonia -Blood cultures:negative -lisinopril held due to NYDIA -Monitor volume status/Renal function and electrolytes -Diuretics on hold -Metoprolol held due to bradycardia -saturating well on room air Possible NSTEMI Demand Ischemia Sinus bradycardia resolved Hold metoprolol for now Continue IV heparin Troponin trended Continue aspirin Held diuretics for now Contraction alkalosis improving Acute Kidney Injury Secondary to diuretics Monitor renal function Avoid Nephrotoxics as able Cr:1.5>>1.4>>1.08 (3) Cellulitis: Stasis Dermatitis B/L Lower extremity cellulitis Completed ceftriaxone, Doxycycline course Wound Care consulted (4) UTI (urinary tract infection): Urine Cx: Pansensitive E. 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 Denies chest pain Continue aspirin, atorvastatin, metoprolol (6) Aortic stenosis: Status post aortic valve replacement in 2011 continue current meds (7) T2DM (type 2 diabetes mellitus): A1c: 13.9 on 05/03/2019 A1c is 8.5 Hold Tresiba NovoLog and Lantus sliding scale per protocol Hyperglycemia noted, likely due to heparin drip (8) Carotid artery disease: S/p bilateral carotid endarterectomy with restenosis right side (9) HTN (hypertension): Metoprolol held due to Bradycardia Lisinopril held due to NYDIA (10) Tobacco use: Smoking cessation encouraged DVT Px on IV Heparin Code Status Full Code Disposition Needs Rehab placement Discuss with Cardiology regarding final recommendation of medications prior to discharge Admission and Anticipated Discharge Date Admission Date: October 03, 2019 Subjective Patient is seen and examined at bedside No new complaints Sitting in chair comfortably Mild leaking of leg wounds Denies any chest pain, shortness of breath, dizziness, nausea, abdominal pain Review of Systems Review of Systems: All systems reviewed & are unremarkable except as noted in HPI & below Physical Exam Physical Exam: Physical Exam: Vitals signs as noted above General Appearance:Moderately built and nourished, no apparent distress Head: normocephalic, Atraumatic Eyes: normal inspection, EOMI, PERRL Neck: supple, Trachea midline Respiratory/Chest: Normal breath sounds, CTA, No accessory muscle use Cardiovascular: S1, S2, + murmur Abdomen/GI:Soft, Non tender, Bowel sounds present Extremities/Musculoskelatal:normal inspection, B/L LE edema, + leg wounds, erythema improved Neurologic/Psych:AAOX3, grossly no focal neurological deficits Skin: normal color, warm Results & Data Results & Data ([facility]) Vital Signs (Past 12 Hours) Vital Signs Temp Pulse Resp BP Pulse Ox 10/15/19 15:25 36.4 C L 84 20 134/88 94 10/15/19 11:46 36.8 C 88 18 104/74 96 10/15/19 08:00 36.6 C 82 20 107/64 90 Laboratory Results [facility] 10/15/19 06:22 Sodium 133 L Potassium 3.5 Chloride 96 L Carbon Dioxide 33 H BUN 49 H Creatinine 1.08 Glucose 83 Calcium 9.0
--- NOTE | 2019-10-15 17:57 | Cardiology Progress Note ---
Date of Service October 15, 2019 Assessment & Plan (1) Acute diastolic (congestive) heart failure: (2) Aortic stenosis: Discontinue unfractioned heparin completing 48 hours of treatment for non-STEMI. I do not think her event included transient chest discomfort, elevation is due to an acute intracoronary plaque rupture, but likely driven by the tension/bradycardia. These have both resolved with backing off her diuretic therapy, and place her back on metoprolol tartrate 12.5 twice daily, down from her previous dose of 50 mg twice daily. Likely reinitiate oral furosemide tomorrow. Stabilizing her further for transfer to rehab. Outpatient follow-up, future health clinic assessment. Subjective Patient without current complaint. Telemetry reveals sinus rhythm for the most part in the 80 to 90 bpm range, a brief episode of bradycardia was noted at 5: 20 8 AM, with sinus rhythm and frequent PVCs in a pattern of jugular bigeminy. Physical Exam Physical Exam: Temp Pulse Resp BP Pulse Ox 36.4 C L 84 20 134/88 94 10/15/19 15:25 10/15/19 15:25 10/15/19 15:25 10/15/19 15:25 10/15/19 15:25 Respiratory: normal respiratory effort, lungs clear to auscultation Cardiovascular: Rate/Rhythm: regular rhythm Heart Sounds: + murmur (1/6 SM) Extremities: + edema (1+ edema, leg wound noted ) Results & Data Vital Signs (Past 12 Hours) Vital Signs Temp Pulse Resp BP Pulse Ox 10/15/19 15:25 36.4 C L 84 20 134/88 94 10/15/19 11:46 36.8 C 88 18 104/74 96 10/15/19 08:00 36.6 C 82 20 107/64 90 Laboratory Results Coagulation 10/15/19 10/15/19 Range/Units 06:22 13:21 APTT 71.8 H* 58.2 H* (21.0-31.0) Seconds Comprehensive Metabolic Panel 10/15/19 Range/Units 06:22 Sodium 133 L (136-145) mmol/L Potassium 3.5 (3.5-5.1) mmol/L Chloride 96 L (98-107) mmol/L Carbon Dioxide 33 H (21-32) mmol/L BUN 49 H (7-18) mg/dl Creatinine 1.08 (0.6-1.2) mg/dl Glucose 83 (70-99) mg/dl Calcium 9.0 (8.5-10.1) mg/dl Intake and Output 10/15/19 10/15/19 10/15/19 06:59 14:59 22:59 Intake Total 200 / 1309.95 857.866 / 857.866 Output Total 450 / 1300 500 / 500 Balance -250 / 9.95 357.866 / 357.866 Intake: IV 297.866 / 297.866 HEPARIN SODIUM/DEXTROSE 25,000 297.866 / 297.866 units In 500 ml @ 750 UNITS/HR 15 mls/hr IV .Q24H [facility] Rx#: [id number] Oral 200 / 1105 560 / 560 Output: Urine Amount (Catheter) 450 / 1300 500 / 500 Dickson/Indwelling 450 / 1300 500 / 500 Other: Weight 100.2 kg
[2019-10-15] MEDS: ASPIRIN 81 MG ECTAB PO SCH (20:21)
[2019-10-15] MEDS: METOPROLOL TARTRATE 25 MG TAB PO SCH (20:47)
[2019-10-16 07:24] LABS: Hematocrit (blood only) 36.6 % (37-47); Hemoglobin 11.4 g/dL (12.0-16.0); Mean Corpuscular Hgb Conc 31.1 g/dL (32-36); Mean Corpuscular Volume 83.4 fL (80-100); Mean Platelet Volume 10.1 fL (7.4-10.4); Platelet Count 232 K/uL (130-400); RDW Coefficient of Variation 17.9 % (11.5-14.5); RDW Standard Deviation 54.6 fL (36.4-46.3); Red Blood Count 4.39 M/uL (4.2-5.4); White Blood Count 6.13 K/uL (4.8-10.8)
[2019-10-16 07:54] LABS: BUN Creatinine Ratio 32.6 (10-20); Calcium 8.7 mg/dl (8.5-10.1); Creatinine Clr Calc Pharmacy 43.8 ml/min; Est GFR (African American) 48.7; Potassium 4.2 mmol/L (3.5-5.1)
[2019-10-16] MEDS: INSULIN ASPART 100 UNITS/ML 3 ML PEN SC SCH ×4 (08:28→20:35)
[2019-10-16] MEDS: INSULIN GLARGINE SOLOSTAR 100 UNITS/ML 3 ML PEN SC SCH ×2 (08:30→20:36)
[2019-10-16] MEDS: MICONAZOLE NITRATE POWDER 43 GM EXT SCH ×2 (08:30→20:35)
[2019-10-16] MEDS: METOPROLOL TARTRATE 25 MG TAB PO SCH ×2 (08:31→20:36)
[2019-10-16] MEDS: ENOXAPARIN INJ 30 MG/0.3 ML SYR SQ SCH (08:35)
[2019-10-16] MEDS: LATANOPROST 0.005% OP SOLN 2.5 ML BTL OPR SCH (08:35)
[2019-10-16] MEDS: MULTIVITAMIN TAB PO SCH (08:36)
[2019-10-16] MEDS: OMEGA-3 (PURIFIED FISH OIL) 1 GM CAP PO SCH (08:36)
[2019-10-16] MEDS: ATORVASTATIN 40 MG TAB PO SCH (08:36)
--- NOTE | 2019-10-16 15:53 | Cardiology Progress Note ---
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 She had a transient bradycardic episode 3 days ago, prompting metoprolol to be held, and at this time metoprolol has been reinitiated, metoprolol tartrate 12.5 mg twice daily as compared to her previous dose of 50 mg twice daily. -Her lisinopril has been held due to renal insufficiency and relative hypotension since 10/07/2019, 9 days. At this time I think it is most prudent to discontinue this medication in preparation for discharge. -Resume furosemide 40 mg p.o. daily. -At this time, I do not have a good solution for her foot pain. It is difficult to know if this is due to her ongoing edema, or perhaps neuropathic pain. Attempts at more aggressive diuretic therapy resulted in symptomatic hypotension. She of course is preload dependent based on her right ventricular dysfunction and severe left ear noted on echo. She is not a candidate for gabapentin as this would provoke additional edema. I be hesitant to utilize a medication such as duloxetine given her cognitive impairment. [place] [facility] [place]. -Outpatient cardiology clinic appointment has been requested as has a valve clinic appointment to discuss TAVR. 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 Subjective Patient denies shortness of breath or chest discomfort. Telemetry reveals sinus rhythm at 78 to 90 bpm without bradycardia. Is difficult to determine if this was a pre-existing complaint spittle stay. Physical Exam Physical Exam: Temp Pulse Resp BP Pulse Ox 36.3 C L 78 16 146/79 H 93 10/16/19 15:13 10/16/19 15:37 10/16/19 15:13 10/16/19 15:13 10/16/19 15:13 Respiratory: normal respiratory effort, lungs clear to auscultation Cardiovascular: Rate/Rhythm: regular rhythm Heart Sounds: + murmur (1/ systolic murmur) Extremities: + edema (1+ pedal, lower leg edema) Neurologic: Cognitive impairment noted, no focal deficits otherwise Results & Data Vital Signs (Past 12 Hours) Vital Signs Temp Pulse Pulse Resp BP BP Pulse Ox 10/16/19 15:37 78 10/16/19 15:13 36.3 C L 76 16 146/79 H 93 10/16/19 08:00 36.7 C 79 77 18 130/77 90 10/16/19 04:49 83 10/16/19 04:42 37.0 C 76 19 102/70 90
--- NOTE | 2019-10-16 16:16 | Hospitalist Progress Note ---
Date of Service October 16, 2019 Assessment & Plan (1) Acute diastolic (congestive) heart failure: Complicated by severe bioprosthetic aortic valve stenosis, right ventricular systolic dysfunction and pulmonary hypertension Has been receiving intravenous furosemide Clinically stable without any shortness of breath as of today that is 10/16/2019 Appreciate cardiology input and recommendation Oral Lasix of 40 mg daily has been started Likely discharge tomorrow (2) Fluid overload: Patient is a 79 yr female with H/O HTN, CAD s/p CABG x2, severe aortic stenosis status post aortic valve replacement 2011, DM II status post bilateral carotid endarterectomy with subsequent right-sided restenosis, HTN, PAD, tobacco use presented to ER with complaints of increased lower extremity edema, progressive shortness of breath, weight gain. Had some adjustment oral diuretics without improvement. Acute diastolic heart failure H/O aortic valve replacement H/O moderate to severe pulmonary hypertension. Acute hypoxic respiratory failure likely due to fluid overload +/-Pneumonia --CXR: Improved right lower lung aeration however persistent right basilar opacity, including a 3.5 cm nodular opacity. Pneumonia is favored. However, radiographic follow-up to exclude the possibility of an underlying mass is recommended. Decrease in size of a small right pleural effusion. Cardiomegaly without evidence for pulmonary edema. -Appreciate Cardiology Input -Weaned off of oxygen -Completed antibiotics for possible pneumonia -Blood cultures:negative -lisinopril held due to NYDIA -Monitor volume status/Renal function and electrolytes -Diuretics on hold -Metoprolol held due to bradycardia -saturating well on room air Possible NSTEMI Demand Ischemia Serial cardiac enzymes were elevated with highest level of 1.950 and EKGs were unremarkable Noted to have sinus bradycardia Metoprolol was on hold and later on resumed smaller dose Continue IV heparin Continue aspirin Heart rate remains JAW: No tenderness or swelling over the mandible or TMJs, mouth opens fully. Acute Kidney Injury Secondary to use of diuretics Monitor renal function Avoid Nephrotoxics as able Creatinine remains minimally elevated at 1.23 as of 10/16/2019 (3) Cellulitis: Stasis Dermatitis B/L Lower extremity cellulitis Completed ceftriaxone, Doxycycline course Wound Care consulted-appreciate input and recommendation (4) UTI (urinary tract infection): Urine Cx: Pansensitive E. 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 Denies chest pain Continue aspirin, atorvastatin, metoprolol (6) Aortic stenosis: Status post aortic valve replacement in 2012 continue current meds (7) T2DM (type 2 diabetes mellitus): A1c: 13.9 on 05/03/2019 A1c is 8.5 Hold Tresiba NovoLog and Lantus sliding scale per protocol Hyperglycemia noted, likely due to heparin drip (8) Carotid artery disease: S/p bilateral carotid endarterectomy with restenosis right side (9) HTN (hypertension): Metoprolol held due to Bradycardia Lisinopril held due to NYDIA We will restart when creatinine is normalized (10) Tobacco use: Smoking cessation encouraged DVT Px on IV Heparin Code Status Full Code Disposition Needs Rehab placement Discuss with Cardiology regarding final recommendation of medications prior to discharge Likely to be discharged tomorrow Admission and Anticipated Discharge Date Admission Date: October 03, 2019 Subjective The patient was seen and examined in telemetry unit She complains to have extreme weakness and tiredness Denies any chest pain and/or palpitation or shortness of breath Review of Systems Review of Systems: All systems reviewed and are unremarkable except as noted below Constitutional: + malaise and + weakness Respiratory: no dyspnea Cardiovascular: no chest pain Physical Exam Physical Exam: Sitting on a chair without any acute distress Constitutional: well developed, well nourished, + ill appearing and + obese; no acute distress Eyes: PERRL, conjunctivae normal, anicteric sclerae ENMT: external ear and nose normal, oropharynx normal Neck: trachea midline, no thyromegaly Respiratory: no respiratory distress Auscultation: + diminished lung sounds and + crackles (Minimal crackles at the bases) Cardiovascular: Rate/Rhythm: regular rate and regular rhythm Heart Sounds: + murmur (2/6 ejection systolic murmur over precordium) Extremities: + edema Bilateral leg edema 1+ Gastrointestinal (Abdomen): Inspection/Auscultation: + abdomen distended and normal bowel sounds Percussion/Palpation: abdomen soft; abdomen nontender Musculoskeletal: No acute arthritis involving any joints Neurologic: moves all extremities; no focal motor deficits Lymphatic: no cervical or axillary lymphadenopathy Results & Data Results & Data ([facility]) Vital Signs (Past 12 Hours) Vital Signs Temp Pulse Pulse Resp BP BP Pulse Ox 10/16/19 15:37 78 10/16/19 15:13 36.3 C L 76 16 146/79 H 93 10/16/19 08:00 36.7 C 79 77 18 130/77 90 10/16/19 04:49 83 10/16/19 04:42 37.0 C 76 19 102/70 90 Laboratory Results Short CBC 10/16/19 Range/Units 07:04 WBC 6.13 (4.8-10.8) K/uL Hgb 11.4 L (12.0-16.0) g/dL Hct 36.6 L (37-47) % Plt Count 232 (130-400) K/uL BMP 10/16/19 07:04 Sodium 135 L Potassium 4.2 D Chloride 98 Carbon Dioxide 33 H BUN 40 H Creatinine 1.23 H Glucose 88 Calcium 8.7 Medications Administered Current Inpatient Medications Acetaminophen (Tylenol) 650 mg PO Q4H PRN PRN Reason: Pain or Fever Stop: 11/02/19 19:12 Last Admin: 10/08/19 07:49 Dose: 650 mg Documented by: Aspirin (Ecotrin Ectab) 81 mg PO QPM STACEY Stop: 11/02/19 20:59 Last Admin: 10/15/19 20:21 Dose: 81 mg Documented by: Atorvastatin Calcium (Lipitor) 40 mg PO DAILY STACEY Stop: 11/03/19 08:59 Last Admin: 10/16/19 08:36 Dose: 40 mg Documented by: Atropine Sulfate (Atropine Sulfate 1mg/Ml) 0.5 mg IV Q3M PRN PRN Reason: symptomatic bradycardia Stop: 11/12/19 07:01 Last Admin: 10/13/19 07:10 Dose: 0.5 mg Documented by: Dextrose (Dextrose 50%) 25 - 50 ml IV UD PRN; Protocol PRN Reason: Hypoglycemia Protocol Stop: 11/02/19 19:12 Enoxaparin Sodium (Lovenox) 30 mg SQ QAM STACEY Stop: 11/15/19 08:59 Last Admin: 10/16/19 08:35 Dose: 30 mg Documented by: Fish Oil ([place]-3 (Purified Fish Oil)) 1 gm PO DAILY STACEY Stop: 11/03/19 08:59 Last Admin: 10/16/19 08:36 Dose: 1 gm Documented by: Furosemide (Lasix) 40 mg PO QAM STACEY Stop: 11/16/19 08:59 Glucagon (Glucagen) 1 mg SQ UD PRN; Protocol PRN Reason: Hypoglycemia Protocol Stop: 11/02/19 19:12 Glucose (Dex4 Glucose) 4 - 8 tabs PO UD PRN; Protocol PRN Reason: Hypoglycemia Protocol Stop: 11/02/19 19:12 Glucose (Glucose 40%) 15 - 30 gm PO UD PRN; Protocol PRN Reason: Hypoglycemia Protocol Stop: 11/02/19 19:12 Insulin Aspart (Novolog Flexpen) 0 units SC ACHS STACEY Stop: 11/02/19 20:59 Last Admin: 10/16/19 12:13 Dose: 9 units Documented by: Insulin Glargine (Lantus Solostar Pen) 0 - 10 units SC BID STACEY Stop: 11/02/19 20:59 Last Admin: 10/16/19 08:30 Dose: Not Given Documented by: Latanoprost (Xalatan Oph) 1 drops OPR DAILY STACEY Stop: 11/03/19 08:59 Last Admin: 10/16/19 08:35 Dose: 1 drops Documented by: Metoprolol Tartrate (Lopressor) 12.5 mg PO BID STACEY Stop: 11/14/19 20:59 Last Admin: 10/16/19 08:31 Dose: 12.5 mg Documented by: Miconazole Nitrate (Desenex) 1 appln EXT BID [facility] Stop: 11/03/19 20:59 Last Admin: 10/16/19 08:30 Dose: 1 appln Documented by: Miscellaneous (Carbohydrates For Hypoglycemia) 15 - 30 gm PO UD PRN PRN Reason: Hypoglycemia Protocol Stop: 11/02/19 19:12 Last Admin: 10/05/19 07:41 Dose: 15 gm Documented by: Multivitamins (Multivitamin Tab) 1 tab PO DAILY [facility] Stop: 11/03/19 08:59 Last Admin: 10/16/19 08:36 Dose: 1 tab Documented by:
[2019-10-16] MEDS: ASPIRIN 81 MG ECTAB PO SCH (20:36)
[2019-10-17 06:19] LABS: Basophils # (auto) 0.03 K/uL (0-0.2); Basophils % (auto) 0.6 %; Eosinophils # (auto) 0.22 K/uL (0-0.5); Eosinophils % (auto) 4.3 %; Hematocrit (blood only) 38.8 % (37-47); Immature Granulocytes # (auto) 0.02 K/uL (0.00-0.02); Immature Granulocytes % (auto) 0.4 %; Lymphocytes # (auto) 1.42 K/uL (1.2-3.4); Lymphocytes % (auto) 27.6 %; Mean Corpuscular Hemoglobin 25.8 pg (25-34); Mean Corpuscular Hgb Conc 30.9 g/dL (32-36); Mean Corpuscular Volume 83.3 fL (80-100); Mean Platelet Volume 9.7 fL (7.4-10.4); Monocytes # (auto) 0.45 K/uL (0.11-0.59); Monocytes % (auto) 8.7 %; Neutrophils # (auto) 3.01 K/uL (1.4-6.5); Neutrophils % (auto) 58.4 %; Platelet Count 241 K/uL (130-400); RDW Coefficient of Variation 18.1 % (11.5-14.5); Red Blood Count 4.66 M/uL (4.2-5.4); White Blood Count 5.15 K/uL (4.8-10.8)
[2019-10-17 06:57] LABS: BUN Creatinine Ratio 35.7 (10-20); Calcium 9.1 mg/dl (8.5-10.1); Creatinine Clr Calc Pharmacy 42.8 ml/min; Est GFR (African American) 47.3; Est GFR (Non-African American) 40.8; Magnesium 2.3 mg/dl (1.8-2.4); Potassium 4.7 mmol/L (3.5-5.1)
[2019-10-17] MEDS: INSULIN ASPART 100 UNITS/ML 3 ML PEN SC SCH ×2 (08:21→12:04)
[2019-10-17] MEDS: MICONAZOLE NITRATE POWDER 43 GM EXT SCH (08:23)
[2019-10-17] MEDS: INSULIN GLARGINE SOLOSTAR 100 UNITS/ML 3 ML PEN SC SCH (08:23)
[2019-10-17] MEDS: ATORVASTATIN 40 MG TAB PO SCH (08:24)
[2019-10-17] MEDS: METOPROLOL TARTRATE 25 MG TAB PO SCH (08:24)
[2019-10-17] MEDS: OMEGA-3 (PURIFIED FISH OIL) 1 GM CAP PO SCH (08:25)
[2019-10-17] MEDS: LATANOPROST 0.005% OP SOLN 2.5 ML BTL OPR SCH (08:25)
[2019-10-17] MEDS: ENOXAPARIN INJ 30 MG/0.3 ML SYR SQ SCH (08:25)
[2019-10-17] MEDS: MULTIVITAMIN TAB PO SCH (08:25)
[2019-10-17] MEDS ORDERED: FUROSEMIDE 40 MG TAB PO SCH (09:00)
--- NOTE | 2019-10-17 11:36 | Hospitalist Progress Note ---
Date of Service October 17, 2019 Assessment & Plan (1) Acute diastolic (congestive) heart failure: Complicated by severe bioprosthetic aortic valve stenosis, right ventricular systolic dysfunction and pulmonary hypertension Has been receiving intravenous furosemide Clinically stable without any shortness of breath as of today that is 10/16/2019 Appreciate cardiology input and recommendation Oral Lasix of 40 mg daily has been started Clinically much better and stable Denies any symptoms of fluid overload/CHF Will be discharged this afternoon (2) Fluid overload: Patient is a 79 yr female with H/O HTN, CAD s/p CABG x2, severe aortic stenosis status post aortic valve replacement 2011, DM II status post bilateral carotid endarterectomy with subsequent right-sided restenosis, HTN, PAD, tobacco use presented to ER with complaints of increased lower extremity edema, progressive shortness of breath, weight gain. Had some adjustment oral diuretics without improvement. Acute diastolic heart failure H/O aortic valve replacement H/O moderate to severe pulmonary hypertension. Acute hypoxic respiratory failure likely due to fluid overload +/-Pneumonia --CXR: Improved right lower lung aeration however persistent right basilar opacity, including a 3.5 cm nodular opacity. Pneumonia is favored. However, radiographic follow-up to exclude the possibility of an underlying mass is recommended. Decrease in size of a small right pleural effusion. Cardiomegaly without evidence for pulmonary edema. -Appreciate Cardiology Input -Weaned off of oxygen -Completed antibiotics for possible pneumonia -Blood cultures:negative -lisinopril held due to NYDIA -Monitor volume status/Renal function and electrolytes -Diuretics on hold -Metoprolol held due to bradycardia -saturating well on room air -As above Possible NSTEMI Demand Ischemia Serial cardiac enzymes were elevated with highest level of 1.950 and EKGs were unremarkable Noted to have sinus bradycardia Metoprolol was on hold and later on resumed smaller dose Continue IV heparin Continue aspirin Heart rate remains JAW: No tenderness or swelling over the mandible or TMJs, mouth opens fully. Acute Kidney Injury Secondary to use of diuretics Monitor renal function Avoid Nephrotoxics as able Creatinine remains minimally elevated at 1.23 as of 10/16/2019 Creatinine is 1.26 as of 10/17/2019 We will continue Lasix 40 mg p.o. daily (3) Cellulitis: Stasis Dermatitis B/L Lower extremity cellulitis Completed ceftriaxone, Doxycycline course Wound Care consulted-appreciate input and recommendation (4) UTI (urinary tract infection): Urine Cx: Pansensitive E. coli Completed ceftriaxone therapy DC Dickson catheter before discharge (5) CAD (coronary artery disease): S/p CABG x2 Bioprosthetic aortic valve replacement in 2011 Severe prosthetic stenosis on recent echo. Denies chest pain Continue aspirin, atorvastatin, metoprolol No more cardiac symptoms (6) Aortic stenosis: Status post aortic valve replacement in 2011 continue current meds (7) T2DM (type 2 diabetes mellitus): A1c: 13.9 on 05/03/2019 A1c is 8.5 Hold Tresiba NovoLog and Lantus sliding scale per protocol Hyperglycemia noted, likely due to heparin drip (8) Carotid artery disease: S/p bilateral carotid endarterectomy with restenosis right side (9) HTN (hypertension): Metoprolol held due to Bradycardia Lisinopril held due to NDYIA We will restart when creatinine is normalized (10) Tobacco use: Smoking cessation encouraged DVT Px on IV Heparin Code Status Full Code Disposition Needs Rehab placement Evaluated by pellet press operator and recommendations provided She will be discharged today Admission and Anticipated Discharge Date Admission Date: October 03, 2019 Subjective The patient was seen and examined in telemetry unit She complains to have extreme weakness and tiredness Denies any chest pain and/or palpitation or shortness of breath 10/17/2019 The patient was seen and examined in telemetry unit She is sitting at the edge of the bed without any acute symptoms Complains to have tiredness and fatigue No chest pain, shortness of breath or palpitation Review of Systems Review of Systems: All systems reviewed and are unremarkable except as noted below Constitutional: + malaise and + weakness Physical Exam Physical Exam: Sitting on a chair without any acute distress Constitutional: well developed, well nourished, + ill appearing and + obese; no acute distress Eyes: PERRL, conjunctivae normal, anicteric sclerae ENMT: external ear and nose normal, oropharynx normal Neck: trachea midline, no thyromegaly Respiratory: no respiratory distress Auscultation: + diminished lung sounds and + crackles (Minimal crackles at the bases) Cardiovascular: Rate/Rhythm: regular rate and regular rhythm Heart Sounds: + murmur (2/6 ejection systolic murmur over precordium) Extremities: + edema Gastrointestinal (Abdomen): Inspection/Auscultation: + abdomen distended and normal bowel sounds Percussion/Palpation: abdomen soft; abdomen nontender Musculoskeletal: Denies any acute arthritis involving any joints Neurologic: moves all extremities; no focal motor deficits Lymphatic: no cervical or axillary lymphadenopathy Results & Data Results & Data ([facility]) Vital Signs (Past 12 Hours) Vital Signs Temp Pulse Pulse Resp BP BP Pulse Ox 10/17/19 08:00 36.7 C 72 20 116/80 95 10/17/19 07:25 73 10/17/19 04:24 36.8 C 76 18 135/73 92 10/17/19 00:00 69 Laboratory Results Short CBC 10/17/19 Range/Units 05:56 WBC 5.15 (4.8-10.8) K/uL Hgb 12.0 (12.0-16.0) g/dL Hct 38.8 (37-47) % Plt Count 241 (130-400) K/uL BMP 10/17/19 05:56 Sodium 134 L Potassium 4.7 Chloride 97 L Carbon Dioxide 31 BUN 45 H Creatinine 1.26 H Glucose 109 H Calcium 9.1 Medications Administered Current Inpatient Medications Acetaminophen (Tylenol) 650 mg PO Q4H PRN PRN Reason: Pain or Fever Stop: 11/02/19 19:12 Last Admin: 10/08/19 07:49 Dose: 650 mg Documented by: Aspirin (Ecotrin Ectab) 81 mg PO QPM STACEY Stop: 11/02/19 20:59 Last Admin: 10/16/19 20:36 Dose: 81 mg Documented by: Atorvastatin Calcium (Lipitor) 40 mg PO DAILY STACEY Stop: 11/03/19 08:59 Last Admin: 10/17/19 08:24 Dose: 40 mg Documented by: Atropine Sulfate (Atropine Sulfate 1mg/Ml) 0.5 mg IV Q3M PRN PRN Reason: symptomatic bradycardia Stop: 11/12/19 07:01 Last Admin: 10/13/19 07:10 Dose: 0.5 mg Documented by: Dextrose (Dextrose 50%) 25 - 50 ml IV UD PRN; Protocol PRN Reason: Hypoglycemia Protocol Stop: 11/02/19 19:12 Enoxaparin Sodium (Lovenox) 30 mg SQ QAM STACEY Stop: 11/15/19 08:59 Last Admin: 10/17/19 08:25 Dose: 30 mg Documented by: Fish Oil ([place]-3 (Purified Fish Oil)) 1 gm PO DAILY STACEY Stop: 11/03/19 08:59 Last Admin: 10/17/19 08:25 Dose: 1 gm Documented by: Furosemide (Lasix) 40 mg PO QAM STACEY Stop: 11/16/19 08:59 Last Admin: 10/17/19 08:24 Dose: 40 mg Documented by: Glucagon (Glucagen) 1 mg SQ UD PRN; Protocol PRN Reason: Hypoglycemia Protocol Stop: 11/02/19 19:12 Glucose (Dex4 Glucose) 4 - 8 tabs PO UD PRN; Protocol PRN Reason: Hypoglycemia Protocol Stop: 11/02/19 19:12 Glucose (Glucose 40%) 15 - 30 gm PO UD PRN; Protocol PRN Reason: Hypoglycemia Protocol Stop: 11/02/19 19:12 Insulin Aspart (Novolog Flexpen) 0 units SC ACHS STACEY Stop: 11/02/19 20:59 Last Admin: 10/17/19 08:21 Dose: 7 units Documented by: Insulin Glargine (Lantus Solostar Pen) 0 - 10 units SC BID [facility] Stop: 11/02/19 20:59 Last Admin: 10/17/19 08:23 Dose: Not Given Documented by: Latanoprost (Xalatan Oph) 1 drops OPR DAILY STACEY Stop: 11/03/19 08:59 Last Admin: 10/17/19 08:25 Dose: 1 drops Documented by: Metoprolol Tartrate (Lopressor) 12.5 mg PO BID [facility] Stop: 11/14/19 20:59 Last Admin: 10/17/19 08:24 Dose: 12.5 mg Documented by: Miconazole Nitrate (Desenex) 1 appln EXT BID STACEY Stop: 11/03/19 20:59 Last Admin: 10/17/19 08:23 Dose: 1 appln Documented by: Miscellaneous (Carbohydrates For Hypoglycemia) 15 - 30 gm PO UD PRN PRN Reason: Hypoglycemia Protocol Stop: 11/02/19 19:12 Last Admin: 10/05/19 07:41 Dose: 15 gm Documented by: Multivitamins (Multivitamin Tab) 1 tab PO DAILY STACEY Stop: 11/03/19 08:59 Last Admin: 10/17/19 08:25 Dose: 1 tab Documented by:
--- NOTE | 2019-10-17 13:51 | Cardiology Progress Note ---
Date of Service October 17, 2019 Assessment & Plan (1) Acute diastolic (congestive) heart failure: Severe bioprosthetic aortic valve stenosis Right ventricular systolic dysfunction, pulmonary hypertension Coronary heart disease, status post CABG x2 at the time of AVR in 2011 Dementia Carotid disease Lower extremity cellulitis Wt today 10/17/19, 98.9 kg, on standing scale bed. As noted in my previous progress note, she did have a transient episode of bradycardia, hypotension, chest pain, elevation several days ago, on 10/13/2019. This occurred in the setting of IV diuretics, metoprolol 50 mg twice daily. I feel that she is likely preload dependent given her right ventricular dysfunction, and severe , and therefore her medications reduced, and she is now on lower beta-wandy dose, lower diuretic dose, lisinopril been held since prior to that event. She completed a short course of IV heparin and her troponin did peak at 1.95 on 10/13/2019, however I do not think this event was due to an acute intracoronary plaque rupture. She is stable for transfer to [facility], [facility] [place], for rehab. -Systolic blood pressures now in the range of 120s, 130s, and 140s. She had a transient bradycardic episode 3 days ago, prompting metoprolol to be held, and at this time metoprolol has been reinitiated, metoprolol tartrate 12.5 mg twice daily as compared to her previous dose of 50 mg twice daily. -Her lisinopril has been held due to renal insufficiency and relative hypotension since 10/07/2019, 9 days. At this time I think it is most prudent to discontinue this medication in preparation for discharge. -Furosemide 40 mg p.o. daily. -At this time, I do not have a good solution for her foot pain. It is difficult to know if this is due to her ongoing edema, or perhaps neuropathic pain. Attempts at more aggressive diuretic therapy resulted in symptomatic hypotension. She of course is preload dependent based on her right ventricular dysfunction and severe left ear noted on echo. She is not a candidate for gabapentin as this would provoke additional edema. I be hesitant to utilize a medication such as duloxetine given her cognitive impairment. -Outpatient cardiology clinic appointment has been requested as has a valve clinic appointment to discuss TAVR. 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 She has tentative follow-up appointments with Dr. Roper of our office in person on 10/29/2019. She has a tentative appointment 01/15/2020 with the valve clinic [facility].If this appointment needs to occur sooner, there may be additional availability if the patient travels to [facility] [place]. And per my telephone discussion with her daughter, Celia, today, family would be agreeable to this. Subjective Chief complaint: Follow-up lower extremity swelling, ulcerations, volume overload Subjective: Patient feels overall improved. As previously noted, detailed discussion of how she feels is somewhat limited by her cognitive impairment. She notes ongoing bilateral foot pain, but states that her feet hurt "all the time ". 1+ pedal edema still noted. On telemetry, her predominant rhythm is sinus rhythm in the 70s. She had a brief episode of sinus bradycardia down to 40 bpm noted last evening at 2132 that was only for a few seconds, occurred while she was sleeping. No profound bradycardia otherwise. Physical Exam Physical Exam: Temp Pulse Resp BP Pulse Ox 36.6 C 86 18 102/70 92 10/17/19 13:11 10/17/19 13:11 10/17/19 13:11 10/17/19 13:11 10/17/19 13:11 Constitutional: Chronically ill in appearance without acute distress Respiratory: normal respiratory effort, lungs clear to auscultation Cardiovascular: Rate/Rhythm: regular rhythm Heart Sounds: + murmur (1/6 murmur) Neurologic: PERRL, EOMI, accommodation nl, no face palsy, no dysarthria Follows commands, cognitive impairment noted Results & Data Vital Signs (Past 12 Hours) Vital Signs Temp Pulse Pulse Pulse Resp BP BP 10/17/19 13:11 36.6 C 86 71 18 102/70 135/73 10/17/19 11:53 36.6 C 71 18 102/70 10/17/19 08:00 36.7 C 72 20 116/80 10/17/19 07:25 73 10/17/19 04:24 36.8 C 76 18 135/73 Pulse Ox 10/17/19 13:11 92 10/17/19 11:53 92 10/17/19 08:00 95 10/17/19 07:25 10/17/19 04:24 92 Laboratory Results CBC 10/17/19 Range/Units 05:56 WBC 5.15 (4.8-10.8) K/uL RBC 4.66 (4.2-5.4) M/uL Hgb 12.0 (12.0-16.0) g/dL Hct 38.8 (37-47) % Plt Count 241 (130-400) K/uL Neut # (Auto) 3.01 (1.4-6.5) K/uL Lymph # (Auto) 1.42 (1.2-3.4) K/uL [facility] # (Auto) 0.45 (0.11-0.59) K/uL Eos # (Auto) 0.22 (0-0.5) K/uL Baso # (Auto) 0.03 (0-0.2) K/uL Comprehensive Metabolic Panel 10/17/19 Range/Units 05:56 Sodium 134 L (136-145) mmol/L Potassium 4.7 (3.5-5.1) mmol/L Chloride 97 L (98-107) mmol/L Carbon Dioxide 31 (21-32) mmol/L BUN 45 H (7-18) mg/dl Creatinine 1.26 H (0.6-1.2) mg/dl Glucose 109 H (70-99) mg/dl Calcium 9.1 (8.5-10.1) mg/dl Intake and Output 10/16/19 10/17/19 10/17/19 22:59 06:59 14:59 Intake Total 320 / 1200 400 / 1200 Output Total 350 / 875 275 / 875 400 / 400 Balance -30 / 325 125 / 325 -400 / -400 Intake: Oral 320 / 1200 400 / 1200 Output: Urine Amount (Catheter) 350 / 875 275 / 875 400 / 400 Dickson/Indwelling 350 / 875 275 / 875 400 / 400 Other: # Unmeasured Voids 1 Weight 98.9 kg 98.9 kg Patient Weight 10/18/19 06:59 Weight 98.9 kg
--- NOTE | 2019-10-18 07:46 | Discharge Summary ---
Date of Service October 18, 2019 Admission HPI Per Admitting Provider Pt is 79 y/o F with PMH HTN, CAD s/p CABG x2, severe aortic stenosis status post aortic valve replacement 2011, DM II status post bilateral carotid endarterectomy with subsequent right-sided restenosis, HTN, PAD, tobacco use presented to ER with complaints of increased lower extremity edema, progressive shortness of breath, weight gain. History obtained with assistance from patient's daughter as patient is poor historian. Reports patient has had progressive shortness of breath and bilateral lower extremity edema and weight gain over the past several months. Reports patient has gained approximately 45 pounds since 05/2019. It is noted she gained 15 pounds in the last 2 weeks. Also reports cough productive clear sputum off and on. Reports patient was started on Lasix 20 mg daily by PCP had continued lower extremity edema and shortness of breath and was seen at [facility] ER in August a.m. received 1 dose IV Lasix with reported good diuresis over the next 24 hours however no improvement of symptoms. Patient's Lasix was increased to 40 mg daily and for the past 5 days has been increased to twice daily. Past 1 to 2 weeks with increased lower extremity edema. Patient's daughter reports that patient never complains this has not been complaining of shortness of breath however she has noted patient with shortness of breath reports today is the worst that she seen her mother. When asked patient just says feels poorly and denies feeling short of breath, which daughter confirms she has been staying at home, however daughter reports has noticed patient with shortness of breath. Pt sleeps in recliner. Denies chest pain. Reports had noticed a blister to left lower extremity several days ago which became larger in size and self broke and drained. Also notes some other small blistered areas to bilateral lower extremities. Patient's daughter has been cleaning and applying dressings to area. Pt ambulates with walker at home however daughter reports noticed pt with increased weakness past couple of days. Denies falls. Denies fever/chills, diaphoresis, N/V/D/C, KESSLER, dizziness, syncope, vision changes, neck pain, CP, SOB, palpitations, sore throat, choking, otalgia, rhinorrhea, abdominal pain, paresthesias, other rashes, urinary symptoms. Patient was seen at cardiology office today and had echo in office with EF: 55- 59%, grade 3 diastolic dysfunction, bioprosthetic aortic valve opening severely reduced with elevated bioprosthetic aortic valve systolic gradient suggesting severe obstruction, moderate tricuspid regurgitation, pulmonary artery systolic pressure 66 mmHg, dilated IVC with normal inspiratory variation suggesting right atrial pressure of 8 mm Hg. this was compared to her last echo from 2019 which shows that bioprosthetic aortic valve systolic gradients have increased. Admission Exam Per Admitting Provider Physical Exam: General: mild acute distress, obese Head: normocephalic, atraumatic Eyes: PERRL, EOM's intact, conjunctiva non-injected, anicteric ENT: normal inspection external ears, nose, mucous membranes moist Neck: supple, trachea midline Lungs: mild no respiratory distress, on 2L oxygen via NC with sats 93%, +wheezing & rales CV: RRR, systolic murmur, +JVD, 2-3+pitting pretibial edema Abd: normal BS, soft, protuberant, non-tender Ext: as below in skin, no calf tenderness Neuro: A&O x 3, no focal deficits noted, normal affect Skin: warm, dry; BLE with erythema, LLE with ruptured bullous, RLE with small bullous intact Principal Diagnosis Acute diastolic heart failure, fluid overload, CAD status post CABG x2, AVR with aortic stenosis, bilateral lower extremity cellulitis Discharge Exam Constitutional well developed, well nourished, + ill appearing and + obese; no acute distress Eyes PERRL, conjunctivae normal, anicteric sclerae ENMT external ear and nose normal, oropharynx normal Neck trachea midline, no thyromegaly Respiratory no respiratory distress Auscultation: + diminished lung sounds and + crackles (Minimal crackles at the bases) Cardiovascular Rate/Rhythm: regular rate and regular rhythm Heart Sounds: + murmur (2/6 ejection systolic murmur over precordium) Extremities: + edema Gastrointestinal (Abdomen) Inspection/Auscultation: + abdomen distended and normal bowel sounds Percussion/Palpation: abdomen soft; abdomen nontender Neurologic moves all extremities; no focal motor deficits Lymphatic no cervical or axillary lymphadenopathy Discharge Data Allergies Allergy/AdvReac Type Severity Reaction Status Date / Time oxycodone [From Percocet] AdvReac Vomiting Verified 10/03/19 16:23 Consultations 10/03/19 16:33 ED Decision to Admit Stat 10/03/19 16:37 ED Decision to Admit Stat 10/03/19 19:13 Consult Cardiology Routine Consult Case Management - Discharge Planning Routine Hospital Course (1) Acute diastolic (congestive) heart failure: Complicated by severe bioprosthetic aortic valve stenosis, right ventricular systolic dysfunction and pulmonary hypertension Has been receiving intravenous furosemide Clinically stable without any shortness of breath as of today that is 10/16/2019 Appreciate cardiology input and recommendation Oral Lasix of 40 mg daily has been started Clinically much better and stable Denies any symptoms of fluid overload/CHF Will be discharged this afternoon (2) Fluid overload: Patient is a 79 yr female with H/O HTN, CAD s/p CABG x2, severe aortic stenosis status post aortic valve replacement 2011, DM II status post bilateral carotid endarterectomy with subsequent right-sided restenosis, HTN, PAD, tobacco use presented to ER with complaints of increased lower extremity edema, progres sive shortness of breath, weight gain. Had some adjustment oral diuretics without improvement. Acute diastolic heart failure H/O aortic valve replacement H/O moderate to severe pulmonary hypertension. Acute hypoxic respiratory failure likely due to fluid overload +/-Pneumonia --CXR: Improved right lower lung aeration however persistent right basilar opacity, including a 3.5 cm nodular opacity. Pneumonia is favored. However, radiographic follow-up to exclude the possibility of an underlying mass is recommended. Decrease in size of a small right pleural effusion. Cardiomegaly without evidence for pulmonary edema. -Appreciate Cardiology Input -Weaned off of oxygen -Completed antibiotics for possible pneumonia -Blood cultures:negative -lisinopril held due to NYDIA -Monitor volume status/Renal function and electrolytes -Diuretics on hold -Metoprolol held due to bradycardia -saturating well on room air -As above Possible NSTEMI Demand Ischemia Serial cardiac enzymes were elevated with highest level of 1.950 and EKGs were unremarkable Noted to have sinus bradycardia Metoprolol was on hold and later on resumed smaller dose Continue IV heparin Continue aspirin Heart rate remains JAW: No tenderness or swelling over the mandible or TMJs, mouth opens fully. Acute Kidney Injury Secondary to use of diuretics Monitor renal function Avoid Nephrotoxics as able Creatinine remains minimally elevated at 1.23 as of 10/16/2019 Creatinine is 1.26 as of 10/17/2019 We will continue Lasix 40 mg p.o. daily (3) Cellulitis: Stasis Dermatitis B/L Lower extremity cellulitis Completed ceftriaxone, Doxycycline course Wound Care consulted-appreciate input and recommendation (4) UTI (urinary tract infection): Urine Cx: Pansensitive E. coli Completed ceftriaxone therapy DC Dickson catheter before discharge (5) CAD (coronary artery disease): S/p CABG x2 Bioprosthetic aortic valve replacement in 2011 Severe prosthetic stenosis on recent echo. Denies chest pain Continue aspirin, atorvastatin, metoprolol No more cardiac symptoms (6) Aortic stenosis: Status post aortic valve replacement in 2011 continue current meds (7) T2DM (type 2 diabetes mellitus): A1c: 13.9 on 05/03/2019 A1c is 8.5 Hold Tresiba NovoLog and Lantus sliding scale per protocol Hyperglycemia noted, likely due to heparin drip (8) Carotid artery disease: S/p bilateral carotid endarterectomy with restenosis right side (9) HTN (hypertension): Metoprolol held due to Bradycardia Lisinopril held due to NYDIA We will restart when creatinine is normalized (10) Tobacco use: Smoking cessation encouraged DVT Px on IV Heparin Code Status Full Code Disposition Needs Rehab placement 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 by 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 crushing 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 and recommendations provided She will be discharged today Total Time Total Time Spent Total Time Spent (In Minutes): 35 minutes Total Time Includes: Examination of the Patient, Discharge Planning, Medication Reconciliation and Communication With Other Providers Discharge Plan Discharge Items Patient Disposition: Transfer [facility] Reason For Visit: FLUID OVERLOAD Discharge Diagnosis: Acute diastolic heart failure, fluid overload, CAD status post CABG x2, AVR with aortic stenosis, bilateral lower extremity cellulitis Condition on Discharge: Fair Activity: As commented below Activity Comment: Needs assistance in ADLs ,continue PT and OT Lifting: No more than 10 pounds Lifting Comment: No more than 10 pounds Bathing Comment: Needs assistance Exercise Comment: As per PT and OT Non-emergency contact: Primary Care Provider Call non-emergency contact if: you have any medication questions and your symptoms worsen Follow-up/Referrals: Jacquelyn Mendez MD [Primary Care Provider] - (Please make an appointment with your primary care provider within 1 week) Diet: Carb Consistent or DM2 and Low Sodium (2gm) Fluids: 1500ml (6 cups) Addtl Attending Provider Instructions: Please take precaution to avoid falls. Pending Studies at Discharge: No Stand-Alone Forms: My [facility], Smoking Cessation Skilled Items Patient informed of condition?: Yes DNR: No Discharge Level of Care: Skilled Communicable Disease: No Discharge Prognosis: Stable Lines: None Urinary Catheter: No Medications and DC Order Prescriptions: New metoprolol tartrate 25 mg Tablet 12.5 mg PO BID 30 Days Qty: 30 RF: 0 Continued albuterol sulfate 90 mcg/actuation HFA aerosol inhaler 1 - 2 puff INHALATION UD RF: 0 insulin aspart U-100 [Novolog Flexpen U-100 Insulin] 100 unit/mL (3 mL) insulin pen 0 unit SUBCUT UD RF: 0 Tresiba FlexTouch U-100 100 unit/mL (3 mL) insulin pen 25 unit SUBCUT QAM RF: 0 multivitamin Tablet 1 tab PO DAILY RF: 0 latanoprost [Xalatan] 0.005 % drops 1 drp OPR DAILY RF: 0 atorvastatin [Lipitor] 80 mg tablet 40 mg PO DAILY RF: 0 aspirin 81 mg Tablet,Chewable 81 mg PO QPM RF: 0 omega [id number]-fish oil [Fish Oil] 1,000 mg (120 mg-180 mg) Capsule 1 tab PO DAILY RF: 0 Changed furosemide 20 mg tablet 40 mg PO DAILY Qty: 0 RF: 0 Discontinued lisinopril [Zestril] 10 mg tablet 10 mg PO DAILY RF: 0 metoprolol tartrate [Lopressor] 50 mg tablet 50 mg PO BID RF: 0 Discharge Orders: Discharge Order (Routine); Ordered 10/17/19 Ordered By: Dawson Macias/Other Patient Handouts: UTIs Female, ED CHF General Admission Data Admit Date/Time: 10/03/19 17:22 Attending Provider: Dawson Sultana Admit Provider: Donald Solorzano Primary Care Provider: Jacquelyn Mendez Other Providers: Donald Solorzano ; Blanche Farias David L ; Christiano Cornejo Other Interventions: Discharge Summary Assessment (RN) Last Done: 10/17/19 13:11 DC Date/Time DO NOT enter until pt leaves facility: 10/17/19 15:16
== END 2019-10-17 15:16 | DRG 291 ==
LOC: ED 14:43 → 2S 17:22 → SUATTDRO 17:22 → 2S 18:43 → 2N 10-11 21:51 → 1E 10-13 07:03 → 2S 10-14 22:49